=== PATIENT | male | born 1950 | race Caucasian/White ===

== ENCOUNTER 2017-11-25 08:55 | Emergency (ER) | payer MEDICARE ==
[~2017-11-25] VITALS: Ht 180.3 cm; Wt 72.6 kg
--- OUTSIDE RECORDS SUMMARY | ~2017-11-25 | XMS | Clinical Summary ---
Demographics + + + | Address | [address] | | | [place] [address] | + + + | Home Phone | | + + + | Preferred Language | Unknown | + + + | Marital Status | | + + + | Roman Catholic Affiliation | 1077 | + + + | Race | Unknown | + + + | Ethnic Group | Unknown | + + + Author + + + | Author | [facility] | | | and [place] | + + + | Organization | [facility] | | | and [place] | [...] Providers + +------+ + | Care Manager Er Name | Role | Phone | + [...]
--- OUTSIDE RECORDS SUMMARY | ~2017-11-25 | XMS | Encounter Summary ---
Demographics + + + | Address | [address] | | | [place] [address] | + + + | Home Phone | | + + + | Preferred Language | Unknown | + + + | Marital Status | | + + + | Judaism Affiliation | 1013 | + + + | Race | Unknown | + + + | Ethnic Group | Unknown | + + + Author + + + | Author | Madison [employer] | + + + | Organization | [facility] | + + + | Address | Unknown | + + + | Phone | Unavailable | + + + Support + + +---------+ + | Name | Relationship | Address | Phone | + + +---------+ + | Kaylah Mckeon | ECON | Unknown | | + + +---------+ + Care Team Providers + +------+ + | Care French Instructor Name | Role | Phone | + +------+ + | Flex Cassidy MD | PCP | | + +------+ + Encounter Details +--------+ + + + + | Date | Type | Department | Care Team | Description | +--------+ + + + + | 09/16/ | Documentati | [facility] | See, Medical | | | 2018 | on Only | Information | Record | | | | | Management [address] | | | | | | [address] | | | | | | [place] [address] | | | | | | [phone] | | | +--------+ + + + [...] | | | | | [place] [address] | | | | | | [phone] | | | | | | | | +--------+---------+ + + + | 01/27/ | Office | Cardiology | Elinor Cantu | | | 2018 | Visit | | [address] | | | | | | [address] | | | | | | [facility] [place] [address] | | | | | | [phone] | | | | | | | | +--------+---------+ + + + as of this encounter Visit Diagnoses Not on filein this encounter"
--- OUTSIDE RECORDS SUMMARY | ~2017-11-25 | XMS | Encounter Summary ---
Demographics + + + | Address | [address] | | | [place] [address] | + + + | Home Phone | | + + + | Preferred Language | Unknown | + + + | Marital Status | | + + + | Adventism Affiliation | 1013 | + + + | Race | Unknown | + + + | Ethnic Group | Unknown | + + + Author + + + | Author | Madison [employer] | + + + | Organization | [facility] [employer] [facility] | + + + | Address | Unknown | + + + | Phone | Unavailable | + + + Support + + +---------+ + | Name | Relationship | Address | Phone | + + +---------+ + | Kaylah Mckeon | ECON | Unknown | | + + +---------+ + Care Team Providers + +------+ + | Care Mate Ship Name | Role | Phone | + [...] + | 08/27/ | Documentati | [facility] [place] | Areli Sood, | Other (Dr Cassidy) | | 2018 | on Only | Cardiology [place] [place] | | | | | [address] | | | | | | [facility] [place] | | | | | | [address] | | | | | | [phone] | | | +--------+ + + + [...] | | | | | [place] [address] | | | | | | [phone] | | | | | | | | +--------+---------+ + + + | 01/27/ | Office | Cardiology | Elinor Cantu | | | 2017 | Visit | | [address] | | | | | | [address] | | | | | | [place] [address] | | | | | | [phone] | | | | | | | | +--------+---------+ + + + as of this encounter Visit Diagnoses Not on filein this encounter"
[~2017-11-25 08:55] MED LIST: ASPIRIN EC325 MG PO; CIALIS20 MG PO; HYDROCHLOROTHIA25 MG PO; LISINOPRIL20 MG PO; MULTIVITAMINS1 EAC7 PO; SIMVASTATIN20 MG
[2017-11-25] MEDS ORDERED: ATORVASTATIN CA40 MG PO (09:07)
[2017-11-25] MEDS ORDERED: ZANAFLEX4 MG PO (09:07)
--- OUTSIDE RECORDS SUMMARY | 2017-11-25 09:32 | XMS | Clinical Summary ---
Demographics + + + | Address | [address] | | | [place] [address] | + + + | Home Phone | | + + + | Preferred Language | Unknown | + + + | Marital Status | | + + + | Congregation Affiliation | 1013 | + + + | Race | Unknown | + + + | Ethnic Group | Unknown | + + + Author + + + | Author | [facility] [employer] | + + + | Organization | [facility] | + + + | Address | Unknown | + + + | Phone | Unavailable | + + + Support + + +---------+ + | Name | Relationship | Address | Phone | + + +---------+ + | Kaylah Pemberton | ECON | Unknown | | + + +---------+ + Care Team Providers + +------+ + | Care Software Reverse Engineer Name | Role | Phone | + +------+ + | Flex Cassidy MD | PP | | + +------+ + Allergies No Known Allergies Current Medications + + +--------+---------+------+------+-------+ | Prescription | Sig. | Disp. | Refills | Star | End | Statu | | | | | | t | Date | s | | | | | | Date | | | + + +--------+---------+------+------+-------+ | magnesium oxide | Take 250 mg by mouth | | | | | Activ | | (MAG-OX) 400 MG | nightly. | | | | | e | | tablet | | | | | | | + + +--------+---------+------+------+-------+ | Cholecalciferol | Take 1 capsule by | | | | | Activ | | (VITAMIN D3) 1000 | mouth nightly. | | | | | e | | UNITS CAPS | | | | | | | + + +--------+---------+------+------+-------+ | | Take 5-325 mg by | | | | | Activ | | HYDROCODONE-ACETAMIN | mouth as needed. | | | | | e | | OPHEN PO | | | | | | | + + +--------+---------+------+------+-------+ | aspirin 325 MG EC | Take 325 mg by mouth | | | | | Activ | | tablet | daily. | | | | | e | + + +--------+---------+------+------+-------+ | metoprolol | Take 25 mg by mouth | | | | | Activ | | (LOPRESSOR) 25 MG | 2 (two) times daily. | | | | | e | | tablet | | | | | | | + + +--------+---------+------+------+-------+ | Coenzyme Q10 | Take 200 mg by mouth | | | | | Activ | | (COQ10) 200 MG CAPS | daily. | | | | | e | + + +--------+---------+------+------+-------+ | atorvastatin | Take 40 mg by mouth | | | | | Activ | | (LIPITOR) 40 MG | nightly. | | | | | e | | tabletIndications: | | | | | | | | Mixed Dyslipidemia | | | | | | | + + +--------+---------+------+------+-------+ | azithromycin | Take 250 mg by mouth | | | | | Activ | | (ZITHROMAX) 250 MG | daily as needed. | | | | | e | | tablet | TAKE TWO TABLETS BY | | | | | | | | MOUTH NOW then ONE | | | | | | | | TABLET DAILY DAY 2-5 | | | | | | + + +--------+---------+------+------+-------+ | | Take 1 tablet by | 180 | 3 | 01/1 | | Activ | | hydrochlorothiazide | mouth 2 (two) times | tablet | | 8/20 | | e | | (HYDRODIURIL) 25 MG | daily. | | | 18 | | | | tablet | | | | | | | + + +--------+---------+------+------+-------+ Active Problems + + + | Problem | Noted Date | + + + | S/P CABG x 5 | 09/28/2014 | + + + | CAD (coronary artery disease) | 09/28/2014 | + + + | Other and unspecified angina pectoris | 08/11/2014 | + + + | Abnormal stress test | 08/11/2014 | + + + | HTN (hypertension) | 08/11/2014 | + + + | Hyperlipidemia | 08/11/2014 | + + + | Obesity | 08/11/2014 | + + + Encounters +--------+ + + + + | Date | Type | Specialty | Care Team | Description | +--------+ + + + + | 09/23/ | Documentati | | Renae Manzo, | Other ([place] | | 2018 | on Only | | [place] | Internal Medicine | | | | | | PCP Notes 09/18/17) | +--------+ + + + + | 09/16/ | Documentati | | See, Medical | | | 2018 | on Only | | Record | | +--------+ + + + + | 08/27/ | Documentati | | Areli Sood, | Other (Dr Cassidy) | | 2018 | on Only | | MA | | +--------+ + + + + from Last 3 Months Family History + + +--------+ + | Medical History | Relation | Name | Comments | + + +--------+ + | Heart disease | Father | Laureano | | + + +--------+ + | Heart disease | Mother | Song | | + + +--------+ + | Osteoarthritis | Mother | Song | | + + +--------+ + | Heart failure | Paternal | | | | | Grandfath | | | | | er | | | + + +--------+ + | Heart failure | Paternal | | | | | Grandmoth | | | | | er | | | + + +--------+ + + +--------+ + + | Relation | Name | Status | Comments | + +--------+ + + | Father | Laureano | | Aortic Aneurysm | | | | (Age | | | | | 72) | | + +--------+ + + | Mother | Song | | CAD, Sepsis | | | | (Age | | | | | 82) | | + +--------+ + + | Paternal Grandfather | | | | + +--------+ + + | Paternal Grandmother | | | | + +--------+ + + Social History + + + +--------+ + | Tobacco Use | Types | Packs/Day | Years | Date | | | | | Used | | + + + +--------+ + | Former Smoker | Cigarettes | 0.5 | 5 | 04/08/1967 - | | | | | | 04/08/1994 | + + + +--------+ + + +------+---+---+ | Smokeless Tobacco: | Chew | | | | Former User | | | | + +------+---+---+ + + | Comments: quit about 20yrs | + + + + +---------+ + | Alcohol Use | Drinks/We | oz/Week | Comments | | | ek | | | + + +---------+ + | Yes | 1 | 0.6 | nightly | | | Glasses | | | | | of wine | | | + + +---------+ + + + + | Sex Assigned at | Date Recorded | | | | + + + | Not on file | | + + + Last Filed Vital Signs + + + + | Vital Sign | Reading | Time Taken | + + + + | Blood Pressure | 130/66 | 06/27/2017 10:00 AM PDT | + + + + | Pulse | 61 | 06/27/2017 10:00 AM PDT | + + + + | Temperature | 36.7 C (98.1 F) | 06/14/2015 8:03 AM PST | + + + + | Respiratory Rate | 18 | 06/27/2017 10:00 AM PDT | + + + + | Oxygen Saturation | 90% | 06/27/2017 10:00 AM PDT | + + + + | Inhaled Oxygen | - | - | | Concentration | | | + + + + | Weight | 122.5 kg (270 lb) | 06/27/2017 10:00 AM PDT | + + + + | Height | 179.1 cm (5' 10.5") | 06/27/2017 10:00 AM PDT | + + + + | Body Mass Index | 38.19 | 06/27/2017 10:00 AM PDT | + + + + Plan of Treatment +--------+---------+ + + + | Date | Type | Specialty | Care Team | Description | +--------+---------+ + + + | 12/04/ | Office | | William Mendez MD | | | 2018 | Visit | | [address] | | | | | | [place] [address] | | | | | | [phone] | | | | | | | | +--------+---------+ + + + | 01/27/ | Office | | Elinor Cantu | | | 2017 | Visit | | [address] | | | | | | [address] | | | | | | [place] [address] | | | | | | [phone] | | | | | | | | +--------+---------+ + + + + + + + + | Health Maintenance | Due Date | Last Done | Comments | + + + + + | Vaccine: | | | | | Dtap/Tdap/Td (1 - | 9 | | | | Tdap) | | | | + + + + + | Colon Cancer | | | | | Screening | 0 | | | | (Colonoscopy) | | | | + + + + + | Vaccine: | | | | | Pneumococcal 65+ | 5 | | | | Low/Medium Risk (1 | | | | | of 2 - PCV13) | | | | + + + + + | Vaccine: Influenza | | | | | (#1) | 8 | | | + + + + + Implants + +------+-------+ +--------+--------+--------+ | Implanted | Type | Area | Manufacture | Device | Expira | Model | | | | | r | | tion | / | | | | | | Identi | Date | Serial | | | | | | fier | | / Lot | + +------+-------+ +--------+--------+--------+ | Pacing Wire Dual | | N/A: | XU MED | | 12/07/ | 030-00 | | 030-005 - | | Heart | | | 2019 | 5 / | | [id number]: Qty: 1 on | | | | | | /170 | | 08/19/2014 by Will Small, | | | | | | | | MD | | | | | | | + +------+-------+ +--------+--------+--------+ | Plate Sternal Acutie - | | N/A: | JOSEGRADYC NULL | | | [id number] | [id number]: Qty: 2 on | | Heart | VENDOR | | | 4 / / | | 08/19/2014 by Will Small, | | | | | | | | MD | | | | | | | + +------+-------+ +--------+--------+--------+ Results Not on filefrom Last 3 Months Insurance + +--------+ +------+-------+ + | Payer | Benefi | Subscriber | Type | Phone | Address | | | t Plan | ID | | | | | | / | | | | | | | Group | | | | | + +--------+ +------+-------+ + | MEDICARE | MEDICA | [id number] | | | [address] | | | RE | | | | [place] [address] | | | IP-OP | | | | | + +--------+ +------+-------+ + | UNITED HEALTHCARE | UNITED | [id number] | | | | | | | | | | | | | HEALTH | | | | | | | CARE - | | | | | | | AARP | | | | | + +--------+ +------+-------+ + + +--------+ +--------+ + + | Guarantor Name | Accoun | Relation to | Date | Phone | Billing Address | | | t Type | Patient | of | | | | | | | | | | + +--------+ +--------+ + + | GILL PEMBERTON | Person | Self | [birth year] | Home: | [address] | | | [place] | | 1950 | [phone] [place] | | | jose | | | [phone] | [address] | + +--------+ +--------+ + +
[2017-11-25] MEDS ORDERED: METHYLPREDNISOLO4 M1 PO (09:57)
[2017-11-25] MEDS ORDERED: ROBAXIN-750750 MG PO (09:57)
[2017-11-25] MEDS ORDERED: NORCO 7.5-3251 EACH PO (09:57)
--- OUTSIDE RECORDS SUMMARY | 2017-11-25 10:18 | XMS | Encounter Summary ---
Demographics + + + | Address | [address] | | | [place] [address] | + + + | Home Phone | | + + + | Preferred Language | Unknown | + + + | Marital Status | | + + + | Baptist Affiliation | 1013 | + + + | Race | Unknown | + + + | Ethnic Group | Unknown | + + + Author + + + | Author | Madison [employer] | + + + | Organization | [facility] | + + + | Address | Unknown | + + + | Phone | Unavailable | + + + Support + + +---------+ + | Name | Relationship | Address | Phone | + + +---------+ + | Kaylah Mckeon | ECON | Unknown | | + + +---------+ + Care Team Providers + +------+ + | Care Room Manager Name | Role | Phone | + +------+ + | Flex Cassidy MD | PCP | | + +------+ + Reason for Visit +--------+ + | Reason | Comments | +--------+ + | Other | Dr Cassidy | +--------+ + Encounter Details +--------+ + + + + | Date | Type | Department | Care Team | Description | +--------+ + + + + | 08/27/ | Documentati | [facility] [place] | Areli Sood, | Other (Dr Cassidy) | | 2018 | on Only | Cardiology [place] Black [place] | | | | | [address] | | | | | | [facility] [place] | | | | | | [address] | | | | | | [phone] | | | +--------+ + + + + Social History + + + [...] on file | | + + + as of this encounter Plan of Treatment +--------+---------+ + + + | Date | Type | Specialty | Care Team | Description | +--------+---------+ + + + | 12/04/ | Office | Pulmonology | William Mendez MD | | | 2017 | Visit | | [address] | | | | | | [place] [address] | | | | | | [phone] | | | | | | | | +--------+---------+ + + + | 01/27/ | Office | Cardiology | Elinor Cantu | | | 2017 | Visit | | [address] | | | | | | [address] | | | | | | [place] [address] | | | | | | [phone] | | | | | | | | +--------+---------+ + + + as of this encounter Visit Diagnoses Not on filein this encounter"
--- OUTSIDE RECORDS SUMMARY | 2017-11-25 10:18 | XMS | Encounter Summary ---
Demographics + + + | Address | [address] | | | [place] [address] | + + + | Home Phone | | + + + | Preferred Language | Unknown | + + + | Marital Status | | + + + | Buddhist Affiliation | 1013 | + + + | Race | Unknown | + + + | Ethnic Group | Unknown | + + + Author + + + | Author | Madison [employer] | + + + | Organization | [facility] | + + + | Address | Unknown | + + + | Phone | Unavailable | + + + Support + + +---------+ + | Name | Relationship | Address | Phone | + + +---------+ + | Kaylah Mckeon | ECON | Unknown | | + + +---------+ + Care Team Providers + +------+ + | Care Quality Control Checker Name | Role | Phone | + +------+ + | Flex Cassidy MD | PCP | | + +------+ + Reason for Visit +--------+ + | Reason | Comments | +--------+ + | Other | [facility] PCP Notes 09/18/17 | +--------+ + Encounter Details +--------+ + + + + | Date | Type | Department | Care Team | Description | +--------+ + + + + | 09/23/ | Documentati | [facility] [place] | Renae Manzo, | Other ([facility] | | 2018 | on Only | Cardiology [facility] | MA | Internal Medicine | | | | [address] | | PCP Notes 09/18/17) | | | | Way [address] | | | | | | [place] [address] | | | | | | [phone] | | | +--------+ + + + [...] | | | | | | [place] [address] | | | | | | [phone] | | | | | | | | +--------+---------+ + + + | 01/27/ | Office | Cardiology | Elinor Cantu | | | 2017 | Visit | | [address] | | | | | | [address] | | | | | | [place] [address] | | | | | | [phone] | | | | | | | | +--------+---------+ + + + as of this encounter Visit Diagnoses Not on filein this encounter"
--- OUTSIDE RECORDS SUMMARY | 2017-11-25 10:18 | XMS | Clinical Summary ---
Demographics + + + | Address | [address] | | | [place] [address] | + + + | Home Phone | | + + + | Preferred Language | Unknown | + + + | Marital Status | | + + + | Shinto Affiliation | 1077 | + + + | Race | Unknown | + + + | Ethnic Group | Unknown | + + + Author + + + | Author | [facility] | | | and [place] | + + + | Organization | [facility] | | | and [facility] | + + + | Address | Unknown | + + + | Phone | Unavailable | + + + Support + + +---------+ + | Name | Relationship | Address | Phone | + + +---------+ + | JEANETH MCKEON | ECON | Unknown | | | D | | | | + + +---------+ + Care Team Providers + +------+ + | Care Church Administrator Name | Role | Phone | + +------+ + PP | Unavailable | + +------+ + Allergies Not on File Current Medications Not on file Active Problems Not on file Social History + +-------+ +--------+------+ | Tobacco Use | Types | Packs/Day | Years | Date | | | | | Used | | + +-------+ +--------+------+ | Never Assessed | | | | | + +-------+ +--------+------+ + + + | Sex Assigned at | Date Recorded | | | | + + + | Not on file | | + + + Plan of Treatment + + + + + | Health [...] | | + + + + + Results Not on filefrom Last 3 Months"
--- OUTSIDE RECORDS SUMMARY | 2017-11-25 10:18 | XMS | Encounter Summary ---
Demographics + + + | Address | [address] | | | [place] [address] | + + + | Home Phone | | + + + | Preferred Language | Unknown | + + + | Marital Status | | + + + | Jainism Affiliation | 1013 | + + + | Race | Unknown | + + + | Ethnic Group | Unknown | + + + Author + + + | Author | Madison babbel | + + + | Organization | [facility] | + + + | Address | Unknown | + + + | Phone | Unavailable | + + + Support + + +---------+ + | Name | Relationship | Address | Phone | + + +---------+ + | Kaylah Mckeon | ECON | Unknown | | + + +---------+ + Care Team Providers + +------+ + | Care Education Nurse Name | Role | Phone | + +------+ + | Flex Cassidy MD | PCP | | + +------+ + Encounter Details +--------+ + + + + | Date | Type | Department | Care Team | Description | +--------+ + + + + | 09/16/ | Documentati | [facility] | See, Medical | | | 2018 | on Only | Information | Record | | | | | Management [address] | | | | | | [address] | | | | | | [place] [address] | | | | | | [phone] | | | +--------+ + + + [...] | 2018 | Visit | | [address] | | | | | | [place] [address] | | | | | | [phone] | | | | | | | | +--------+---------+ + + + | 01/27/ | Office | Cardiology | Elinor Cantu | | | 2018 | Visit | | [address] | | | | | | [address] | | | | | | [facility] [place] [place] [address] | | | | | | [phone] | | | | | | | | +--------+---------+ + + + as of this encounter Visit Diagnoses Not on filein this encounter"
--- OUTSIDE RECORDS SUMMARY | 2017-11-25 10:18 | XMS | Clinical Summary ---
Demographics + + + | Address | [address] | | | [place] [address] | + + + | Home Phone | | + + + | Preferred Language | Unknown | + + + | Marital Status | | + + + | Jain Affiliation | 1013 | + + + | Race | Unknown | + + + | Ethnic Group | Unknown | + + + Author + + + | Author | Madison [employer] | + + + | Organization | [facility] | + + + | Address | Unknown | + + + | Phone | Unavailable | + + + Support + + +---------+ + | Name | Relationship | Address | Phone | + + +---------+ + | Kaylah Pemberton | ECON | Unknown | | + + +---------+ + Care Team Providers + +------+ + | Care E Business Manager Name | Role | Phone | [...] Documentati | | Renae Manzo, | Other ([place] | | 2018 | on Only | [...] [address] | | | | | | [place] [address] | | | | | | [phone] | | | | | | | | +--------+---------+ + + + | 01/27/ | Office | | Elinor Cantu | | | 2017 | Visit | | [address] | | | | | | [address] | | | | | | [place] [address] | | | | | | [phone] | | | | | | | [...] | 2019 | 5 / | | [id number]: Qty: 1 on | | | | | | /170 | | 08/19/2014 by Will Small, | | | | | | | | MD | | | | | | | + +------+-------+ +--------+--------+--------+ | Plate Sternal Acutie - | | N/A: | JOSEGRADYC NULL | | | [id number] | | [id number]: Qty: 2 on | | Heart | [...] +------+-------+ + | MEDICARE | MEDICA | [id number] | | | [address] | | | RE | | | | [place] [address] | | | IP-OP | | | | | + +--------+ +------+-------+ + | UNITED HEALTHCARE | UNITED | [id number] | | | | | | | [...] | Self | [birth year] | Home: | [address] | | | al/[place] | | 1950 | [phone] | [place] | | | jose | | | [phone] | [address] | + +--------+ +--------+ + +
--- OUTSIDE RECORDS SUMMARY | 2017-11-25 10:19 | XMS | Encounter Summary ---
Demographics + + + | Address | [address] | | | [place] [address] | + + + | Home Phone | | + + + | Preferred Language | Unknown | + + + | Marital Status | | + + + | Anglican Affiliation | 1013 | + + + | Race | Unknown | + + + | Ethnic Group | Unknown | + + + Author + + + | Author | Madison [employer] | + + + | Organization | [facility] | + + + | Address | Unknown | + + + | Phone | Unavailable | + + + Support + + +---------+ + | Name | Relationship | Address | Phone | + + +---------+ + | Kaylah Mckeon | ECON | Unknown | | + + +---------+ + Care Team Providers + +------+ + | Care Vocational Counselor Name | Role | Phone | + [...] + | 09/23/ | Documentati | [facility] [place] | Renae Manzo, | Other ([facility] | | 2018 | on Only | Cardiology [facility] | MA | Internal Medicine | | | | [address] | | PCP Notes 09/18/17) | | | | Way [address] | | | | | | [place] [address] | | | | | | [phone] | | | +--------+ + + + [...] | | | | | | [place] [address] | | | | | | [phone] | | | | | | | | +--------+---------+ + + + | 01/27/ | Office | Cardiology | Elinor Cantu | | | 2017 | Visit | | [address] | | | | | | [address] | | | | | | [place] [address] | | | | | | [phone] | | | | | | | | +--------+---------+ + + + as of this encounter Visit Diagnoses Not on filein this encounter"
== END 2017-11-25 10:47 | disposition home or self-care (01) ==
LOC: ED 08:55
DX: M54.5 Low back pain (principal); I11.0 Hypertensive heart disease with heart failure; I50.9 Heart failure, unspecified; Z87.891 Personal history of nicotine dependence; Z79.899 Other long term (current) drug therapy
CPT/HCPCS: 81001; 96372; 99283; J1885

== ENCOUNTER 2019-10-12 15:34 | Emergency (ER) | payer MEDICARE ==
[~2019-10-12] VITALS: Ht 180.3 cm; Wt 97.5 kg
--- OUTSIDE RECORDS SUMMARY | ~2019-10-12 | XMS | Encounter Summary ---
Demographics + + + | Address | [address] | | | [place] [address] | + + + | Home Phone | | + + + | Preferred Language | Unknown | + + + | Marital Status | | + + + | Buddhism Affiliation | 1013 | + + + | Race | Unknown | + + + | Ethnic Group | Unknown | + + + Author + + + | Author | [facility] | | | and [place] | + + + | Organization | [facility] | | | and [place] | + + + | Address | Unknown | + + + | Phone | Unavailable | + + + Support + + +---------+ + | Name | Relationship | Address | Phone | + + +---------+ + | Kaylah Mckeon | ECON | Unknown | | + + +---------+ + Care Team Providers + +------+ + | Care Manager Document Name | Role | Phone | + +------+ + | Henry Arteaga MD | PCP | | + +------+ + Encounter Details +--------+ + + + + | Date | Type | Department | Care Team | Description | +--------+ + + + + | 04/28/ | Orders Only | [facility] | Conversion | | | 2019 | | CONVERSION DEP [address] | Transaction, | | | | | [address] | Provider Unknown | | | | | [place], [place] | [phone] | | | | | [address] | | | | | | [phone] | | | +--------+ + + + + Social History + +-------+ +--------+------+ | Tobacco [...] on file | | + + + documented as of this encounter Plan of Treatment Not on filedocumented as of this encounter Visit Diagnoses Not on filedocumented in this encounter"
--- OUTSIDE RECORDS SUMMARY | ~2019-10-12 | XMS | Encounter Summary ---
Demographics + + + | Address | [address] | | | [place] [address] | + + + | Home Phone | | + + + | Preferred Language | Unknown | + + + | Marital Status | | + + + | Jain Affiliation | 1013 | + + + | Race | Unknown | + + + | Ethnic Group | Unknown | + + + Author + + + | Author | [facility] | | | and [place] | + + + | Organization | [facility] | | | and [...] Team Providers + +------+ + | Care Campaign Specialist Name | Role | Phone | + +------+ + PCP | Unavailable | + +------+ + Encounter Details +--------+ + + + + | Date | Type | Department | Care Team | Description | +--------+ + + + + | 08/17/ | Hospital | [facility] | Conversion | CAD (coronary artery | | 2015 | Encounter | [facility] | Transaction, | disease) | | | | ULTRASOUND [address] | Provider Unknown | | | | | [address] | [phone] | | | | | [place] | | | | | | [address] | | | | | | [phone] | | | +--------+ + + + [...] + + documented as of this encounter Medications at Time of Discharge + + + +---------+ + + | Medication | Sig | Dispensed | Refills | Start | End Date | | | | | | Date | | + + + +---------+ + + | cholecalciferol | Take 1 capsule by | | 0 | 08/12/19 | | | (VITAMIN D-3) 1,000 | mouth nightly. | | | 15 | | | units capsule | | | | | | + + + +---------+ + + | magnesium oxide | Take 250 mg by mouth | | 0 | 08/12/19 | | | 250 MG TABS | nightly. | | | 15 | | + + + +---------+ + + documented as of this encounter Plan of Treatment Not on filedocumented as of this encounter Procedures + +--------+ + + + | Procedure Name | Priori | Date/Time | Associated Diagnosis | Comments | | | ty | | | | + +--------+ + + + | VAS CAROTID DUPLEX | Routin | 08/17/2014 | | Results for this | | BILATERAL | e | 11:50 AM | | procedure are in the | | | | PDT | | results section. | + +--------+ + + + documented in this encounter Results VAS Carotid Duplex Bilateral (08/17/2014 11:50 AM PDT) + + | Specimen | + + | | + + + + + | Impressions | Performed At | + + + | 1. Grade 3 stenosis of the proximal RIGHT internal carotid artery. | | | 2. Flow-limiting stenosis in the origin of the RIGHT external | | | carotid artery. 3. Nonvisualization of flow in the RIGHT vertebral | | | artery, suggesting proximal occlusion. 4. No stenosis visualized in | | | the LEFT carotid arteries. 5. LEFT vertebral blood flow is normal. | | | Grades: 1 Stenosis =01-30% PSV <125 cm/sec | | | EDV (cm/s)<40 cm/sec (mild plaque) 2 Stenosis =31-50% | | | PSV <125 cm/sec EDV (cm/s)<40 cm/sec (moderate plaque) 3 | | | Stenosis =50-69% PSV >125 cm/sec EDV (cm/s)>40 cm/sec | | | 4 Stenosis =70-95% PSV >230 cm/sec EDV (cm/s)>100 | | | cm/sec 5 Stenosis =90-95% PSV <125 cm/sec EDV | | | (cm/s)<40 cm/sec 6 Stenosis Occluded Electronically | | | signed by Magdy Fan MD on 08/17/2014 1:56 PM | | + + + + + + | Narrative | Performed At | + + + | [facility] US CAROTID DOPPLER, BILATERAL 08/17/2014 11:50 AM | | | History: 64 years. Male. Preoperative evaluation for cardiac | | | surgery. TECHNIQUE: A pulse Doppler high-frequency duplex color | | | flow transducer was utilized. All velocity measurements are given in | | | m/sec. Pack scale images, spectral wave forms, velocity measurements | | | and color flow maps were analyzed. COMPARISON: None. RIGHT | | | COMMON CAROTID BIFURCATION: The RIGHT common carotid bifurcation is | | | poorly visualized due to echogenic plaque. Doppler velocities are | | | abnormally high throughout the proximal RIGHT internal carotid artery | | | with velocities indicating a grade 3 stenosis, 50-70% diameter | | | stenosis, flow-limiting. Elevated velocity in the RIGHT external | | | carotid artery also indicate significant stenosis. The RIGHT | | | vertebral blood flow is not visualized. Right Peak Systolic | | | Velocities (cm/sec) CCA-PROX: 81 CCA-DIST 64 | | | ICA-PROX 236/44 ICA-MID 43 ICA-DIST | | | 78 ECA-PROX 304 Vertebral not visualized. LEFT | | | COMMON CAROTID BIFURCATION: Mild echogenic plaque is visualized in | | | the LEFT common carotid bifurcation, without flow-limiting stenosis. | | | The Doppler velocities are normal throughout left carotid | | | bifurcation and the left vertebral blood flow is antegrade. Left | | | Peak Systolic Velocities (cm/sec) CCA-PROX not | | | measured. CCA-DIST 60 ICA-PROX 69 ICA-MID | | | 74 ICA-DIST 81 ECA-PROX 110 Vertebral | | | 43 | | + + + + + | Procedure Note | + + | Eric, Rad Conversion - 11/21/2018 8:32 AM PDT [facility] CAROTID DOPPL[facility], | | BILATERAL08/17/2014 11:50 AM History: 64 years. Male. Preoperative evaluation for | | cardiac surgery. TECHNIQUE: A pulse Doppler high-frequency duplex color flow transducer | | was utilized. All velocity measurements are given in m/sec. Pack scale images, spectral | | wave forms, velocity measurements and color flow maps were analyzed. COMPARISON: None. | | RIGHT COMMON CAROTID BIFURCATION:The RIGHT common carotid bifurcation is poorly | | visualized due to echogenic plaque. Doppler velocities are abnormally high throughout | | the proximal RIGHT internal carotid artery with velocities indicating a grade 3 | | stenosis, 50-70% diameter stenosis, flow-limiting. Elevated velocity in the RIGHT | | external carotid artery also indicate significant stenosis. The RIGHT vertebral blood | | flow is not visualized. Right Peak Systolic Velocities (cm/sec)CCA-PROX: 81CCA-DIST | | 64ICA-PROX 236/44ICA-MID 43ICA-DIST 78ECA-PROX | | 304Vertebral not visualized. LEFT COMMON CAROTID BIFURCATION:Mild echogenic plaque is | | visualized in the LEFT common carotid bifurcation, without flow-limiting stenosis. The | | Doppler velocities are normal throughout left carotid bifurcation and the left vertebral | | blood flow is antegrade. Left Peak Systolic Velocities (cm/sec)CCA-PROX not | | measured.CCA-DIST 60ICA-PROX 69ICA-MID 74ICA-DIST | | 81ECA-PROX 110Vertebral 43 IMPRESSION: 1. Grade 3 stenosis of the | | proximal RIGHT internal carotid artery.2. Flow-limiting stenosis in the origin of the | | RIGHT external carotid artery.3. Nonvisualization of flow in the RIGHT vertebral | | artery, suggesting proximal occlusion.4. No stenosis visualized in the LEFT carotid | | arteries.5. LEFT vertebral blood flow is normal. Grades:1 Stenosis =01-30% PSV | | <125 cm/sec EDV (cm/s)<40 cm/sec (mild plaque)2 Stenosis =31-50% PSV <125 | | cm/sec EDV (cm/s)<40 cm/sec (moderate plaque)3 Stenosis =50-69% PSV >125 | | cm/sec EDV (cm/s)>40 cm/sec4 Stenosis =70-95% PSV >230 cm/sec EDV | | (cm/s)>100 cm/sec5 Stenosis =90-95% PSV <125 cm/sec EDV (cm/s)<40 cm/sec6 | | Stenosis Occluded | | PM | |CCA-PROX not measured. | |CCA-DIST 60 | |ICA-PROX 69 | |ICA-MID 74 | |ICA-DIST 81 | |ECA-PROX 110 | |Vertebral 43 | | | | | |IMPRESSION: | |1. Grade 3 stenosis of the proximal RIGHT internal carotid artery. | |2. Flow-limiting stenosis in the origin of the RIGHT external carotid artery. | |3. Nonvisualization of flow in the RIGHT vertebral artery, suggesting proximal occlusion. | |4. No stenosis visualized in the LEFT carotid arteries. | |5. LEFT vertebral blood flow is normal. | | | | | |Grades: | |1 Stenosis =01-30% PSV <125 cm/sec EDV (cm/s)<40 cm/sec (mild plaque) | |2 Stenosis =31-50% PSV <125 cm/sec EDV (cm/s)<40 cm/sec (moderate plaque) | |3 Stenosis =50-69% PSV >125 cm/sec EDV (cm/s)>40 cm/sec | |4 Stenosis =70-95% PSV >230 cm/sec EDV (cm/s)>100 cm/sec | |5 Stenosis =90-95% PSV <125 cm/sec EDV (cm/s)<40 cm/sec | |6 Stenosis Occluded | | | | | + + documented in this encounter Visit Diagnoses + + | Diagnosis | + + | CAD (coronary artery disease) Coronary atherosclerosis of unspecified type of vessel, | | [place] or graft | + + documented in this encounter"
--- OUTSIDE RECORDS SUMMARY | ~2019-10-12 | XMS | Encounter Summary ---
Demographics + + + | Address | [address] | | | [place] [address] | + + + | Home Phone | | + + + | Preferred Language | Unknown | + + + | Marital Status | | + + + | Islam Affiliation | 1013 | + + + | Race | Unknown | + + + | Ethnic Group | Unknown | + + + Author + + + | Author | [facility] | | | and [place] | + + + | Organization | [facility] | | | and [...] Team Providers + +------+ + | Care Clinical Professor Name | Role | Phone | + +------+ + PCP | Unavailable | + +------+ + Encounter Details +--------+ + + + + | Date | Type | Department | Care Team | Description | +--------+ + + + + | 09/28/ | Hospital | [facility] | Conversion | COPD (chronic | | 2014 | Encounter | PULMONARY FUNCTION | Transaction, | obstructive | | | | LAB [address] | Provider Unknown | pulmonary disease) | | | | [place], [place] | [phone] | (HCC) | | | | [address] | | | | | | [phone] | | | +--------+ + + + [...] + + documented as of this encounter Procedure Malcom Dixon MD - 09/30/2014 9:57 PM PDT Procedures by Malcom Kulkarni MD at [id number] Author: Malcom Kulkarni MD Service: Pulmonology Author Type: Physician Filed: 09/30/142201 Date of Service: 09/30/142156 Status: Signed Peer Support Specialist: Malcom Kulkarni MD (Physician) Procedure Orders: 1. Complete PFT - Pre & Post Spirometry, PLETH & DLCO [[id number]] ordered by Federico velez PA-C at 09/07/[address] [place] [address] Service: Pulmonology PULMONARY FUNCTION TEST Name : Yasmany Mckeon : 1950 REASON FOR TESTING COPD FINDINGS SPIROMETRY: 1. FEV-1/FVC is 0.63. 2. FEV-1 is 2.4L/69%. 3. FVC is 3.81L/82%. 4.There is a significant bronchodilator response. LUNG VOLUMES: 1. TLC is 6.39L/91%. 2. RV/TLC is normal. 3. ERV is 39%. DIFFUSING CAPACITY: 1. Diffusing capacity is 59%. 2. DL/VA is 83%. INTERPRETATION: Moderate obstructive lung disease is present with a significant response to bronchodilators . There is no restriction present, no hyperinflation, and no air trapping. ERV is reduced likely secondary to obesity. Diffusing capacity is moderately reduced. This pattern may be seen in COPD. Malcom Kulkarni MD 09/30/2014 9:57 PM docume nted in this encounter Plan of Treatment Not on filedocumented as of this encounter Visit Diagnoses + + | Diagnosis | + + | COPD (chronic obstructive pulmonary disease) (HCC) Chronic airway obstruction, not | | elsewhere classified | + + documented in this encounter"
--- OUTSIDE RECORDS SUMMARY | ~2019-10-12 | XMS | Clinical Summary ---
Demographics + + + | Address | [address] | | | [place] [address] | + + + | Home Phone | | + + + | Preferred Language | Unknown | + + + | Marital Status | | + + + | Anabaptism Affiliation | 1013 | + + + | Race | Unknown | + + + | Ethnic Group | Unknown | + + + Author + + + | Author | [facility] | | | and [place] | + + + | Organization | [facility] | | | [...] Team Providers + +------+ + | Care Hogshead Stripper Name | Role | Phone | + +------+ + | Henry Arteaga MD | PCP | | + +------+ + Allergies No Known Allergies Medications + + + +---------+------+------+-------+ | Medication | Sig | Dispensed | Refills | Star | End | Statu | | | | | | t | Date | s | | | | | | Date | | | + + + +---------+------+------+-------+ | magnesium oxide | Take 250 mg by mouth | | 0 | 05/0 | | Activ | | 250 MG TABS | nightly. | | | 6/20 | | e | | | | | | 15 | | | + + + +---------+------+------+-------+ | cholecalciferol | Take 1 capsule by | | 0 | 05/0 | | Activ | | (VITAMIN D-3) 1,000 | mouth nightly. | | | 6/20 | | e | | units capsule | | | | 15 | | | + + + +---------+------+------+-------+ | metoprolol | Take 25 mg by mouth | | 0 | 08/1 | | Activ | | tartrate (LOPRESSOR) | 2 (two) times daily. | | | 20 | | e | | 25 mg tablet | | | | 17 | | | + + + +---------+------+------+-------+ | Coenzyme Q10 | Take 200 mg by mouth | | 0 | 08/1 | | Activ | | (COQ10) 100 MG CAPS | daily. | | | 720 | | e | | | | | | 17 | | | + + + +---------+------+------+-------+ | atorvaSTATin | Take 40 mg by mouth | | 0 | 08/1 | | Activ | | (LIPITOR) 40 mg | nightly. | | | 10/25 | | e | | tablet | | | | 17 | | | + + + +---------+------+------+-------+ | azithromycin | Take 250 mg by mouth | | 0 | 04/08 | | Activ | | (ZITHROMAX) 250 mg | daily as needed. | | | 11/25 | | e | | tablet | TAKE TWO TABLETS BY | | | 18 | | | | | MOUTH NOW then ONE | | | | | | | | TABLET DAILY DAY 2-5 | | | | | | + + + +---------+------+------+-------+ | | Take 1 tablet by | 180 | 3 | / | | Activ | | hydroCHLOROthiazide | mouth 2 (two) times | tablet | | 11/25 | | e | | 25 mg tablet | daily. | | | 18 | | | + + + +---------+------+------+-------+ | gabapentin | Take 600 mg by mouth | | 0 | 10/2 | | Activ | | (NEURONTIN) 600 MG | 3 (three) times | | | 0/20 | | e | | tablet | daily as needed. | | | 18 | | | + + + +---------+------+------+-------+ | gabapentin | take 1 capsule by | | 0 | 10/1 | | Activ | | (NEURONTIN) 300 mg | mouth three times a | | | 7/20 | | e | | capsule | day if needed for | | | 18 | | | | | pain | | | | | | + + + +---------+------+------+-------+ | | take 1 tablet by | | 0 | 10/1 | | Activ | | HYDROcodone-acetamin | mouth every 4 to 6 | | | 7/20 | | e | | ophen (NORCO) 5-325 | hours if needed for | | | 18 | | | | mg per tablet | pain | | | | | | + + + +---------+------+------+-------+ | meloxicam (MOBIC) | Take 7.5 mg by mouth | | 0 | 10/1 | | Activ | | 7.5 mg tablet | 2 (two) times | | | 7/20 | | e | | | daily. | | | 18 | | | + + + +---------+------+------+-------+ | methylPREDNISolone | take by mouth as | | 0 | 10/1 | | Activ | | (MEDROL DOSEPAK) 4 | directed PER PACKAGE | | | 7/20 | | e | | mg tablet | DIRECTIONS | | | 18 | | | + + + +---------+------+------+-------+ | predniSONE | take 2 tablets by | | 0 | 10/2 | | Activ | | (DELTASONE) 20 mg | mouth once daily for | | | 0/20 | | e | | tablet | 5 days then take 1 | | | 18 | | | | | tablet ... (REFER | | | | | | | | TO PRESCRIPTION | | | | | | | | NOTES). | | | | | | + + + +---------+------+------+-------+ | Resveratrol 250 MG | Take by mouth. | | 0 | 01/2 | | Activ | | CAPS | | | | 2/20 | | e | | | | | | 19 | | | + + + +---------+------+------+-------+ | methocarbamol | Take 750 mg by mouth | | 0 | 01/2 | | Activ | | (ROBAXIN) 750 mg | 4 (four) times | | | 2/20 | | e | | tablet | daily. | | | 19 | | | + + + +---------+------+------+-------+ | | by Does not apply | | 0 | 01/2 | | Activ | | Lidocaine-Prilocaine | route. | | | 2/20 | | e | | , Bulk, 2.5-2.5 % | | | | 19 | | | | CREA | | | | | | | + + + +---------+------+------+-------+ | traMADol (ULTRAM) | take 1 tablet by | 60 | 0 | 05/0 | | Activ | | 50 mg tablet | mouth every 8 hours | tablet | | 3/20 | | e | | | if needed for pain | | | 19 | | | + + + +---------+------+------+-------+ Active Problems + + + | Problem | Noted Date | + + + | Herniated lumbar intervertebral disc | 07/02/2018 | + + + | Lumbar radiculopathy | 07/02/2018 | + + + | Lumbar spondylosis | 07/02/2018 | + + + | Spinal stenosis of lumbar region without neurogenic claudication | 07/02/2018 | + + + | Epidural lipomatosis | 07/02/2018 | + + + | Lumbar foraminal stenosis | 07/02/2018 | + + + | S/P CABG [...] Obesity | 08/11/2014 | + + + Family History + + +--------+ + | [...] | | + +--------+ + + | Father | Laureano | | | + +--------+ + + | Mother | Song | | CAD, Sepsis | | | | (Age | | | | | 82) | | + +--------+ + + | Mother | Song | | | + +--------+ + + | Paternal Grandfather | | | | + +--------+ + + | Paternal Grandfather | | | | + +--------+ + + | Paternal Grandmother | | | | + +--------+ + + | Paternal Grandmother | | | | + +--------+ + + Social History + +-------+ +--------+------+ | Tobacco Use | Types | Packs/Day | Years | Date | | | | | Used | | + +-------+ +--------+------+ | Former Smoker | | 0.5 | | | + +-------+ +--------+------+ + + | Comments: quit about 20yrs | + + + + + | Sex Assigned at | Date Recorded | | | | + + + | Not on file | | + + + Last Filed Vital Signs + + + + + | Vital Sign | Reading | Time Taken | Comments | + + + + + | Blood Pressure | 156/76 | 07/02/2018 8:42 AM | | | | | PDT | | + + + + + | Pulse | 54 | 07/02/2018 8:42 AM | | | | | PDT | | + + + + + | Temperature | 36.7 C (98.1 F) | 06/14/2015 8:06 AM | | | | | PST | | + + + + + | Respiratory Rate | 16 | 07/02/2018 8:42 AM | | | | | PDT | | + + + + + | Oxygen Saturation | - | - | | + + + + + | Inhaled Oxygen | - | - | | | Concentration | | | | + + + + + | Weight | 107.5 kg (237 lb) | 07/02/2018 8:42 AM | | | | | PDT | | + + + + + | Height | 177.8 cm (5' 10") | 07/02/2018 8:42 AM | | | | | PDT | | + + + + + | Body Mass Index | 34.01 | 07/02/2018 8:42 AM | | | | | PDT | | + + + + + Plan of Treatment + + +-------+ + | Health Maintenance | Due Date | Last | Comments | | | | Done | | + + +-------+ + | Hepatitis C | | | | | Screening | 0 | | | + + +-------+ + | Vaccine: | | | | | Dtap/Tdap/Td (1 - | 9 | | | | Tdap) | | | | + + +-------+ + | Colorectal Cancer | | | | | Screening | 0 | | | | (Colonoscopy) | | | | + + +-------+ + | Vaccine: Zoster (1 | | | | | of 2) | 0 | | | + + +-------+ + | AAA Screening | | | | | | 5 | | | + + +-------+ + | Vaccine: | | | | | Pneumococcal 65+ (1 | 5 | | | | of 1 - PPSV23) | | | | + + +-------+ + | Adult Annual | | | | | Wellness Visit | 9 | | | + + +-------+ + | Vaccine: Influenza | | | | | (#1) | 0 | | | + + +-------+ + Implants + +------+-------+ +--------+--------+--------+ | Implanted | Type | Area | Manufacture | Device | Shelf | Model | | | | | r | | Expira | / | | | | | | Identi | tion | Serial | | | | | | fier | Date | / Lot | + +------+-------+ +--------+--------+--------+ | Pacing Wire Dual | | N/A: | XU | | 12/07/ | 030-00 | | 030-005 - | | Heart | MEDICAL | | 2019 | 5 / | | [id number]: Qty: 1 on | | | SPECIALTI - | | | /170 | | 08/19/2014 by Will Small, | | | WILS | | | | | MD | | | | | | | + +------+-------+ +--------+--------+--------+ | Plate Sternal Acutie - | | N/A: | NA UNKNOWN | | | [id number] | | [id number]: Qty: 2 on | | Heart | | | | 4 / / | | 08/19/2014 by Will Small, | | | | | | | | MD | | | | | | | + +------+-------+ +--------+--------+--------+ Results Not on filefrom Last 3 Months Insurance + +--------+ +--------+ +---------+--------+ | Payer | Benefi | Subscriber | Effect | Phone | Address | Type | | | t Plan | ID | harry | | | | | | / | | Dates | | | | | | Group | | | | | | + +--------+ +--------+ +---------+--------+ | MEDICARE | MEDICA | [id number] | | [phone] | | Medica | | | RE | | 015-Pr | 5 | | re | | | PART A | | esent | | | | | | AND B | | | | | | + +--------+ +--------+ +---------+--------+ | MEDICARE | MEDICA | [id number] | | [phone] | | Medica | | | RE | | 015-Pr | 5 | | re | | | PART A | | esent | | | | | | AND B | | | | | | + +--------+ +--------+ +---------+--------+ | AARP | AARP | [id number] | 04/08/19 | [phone] | | Indemn | | | MDCR | | 18-Pre | 0 | | ity | | | SUPPL | | sent | | | | + +--------+ +--------+ +---------+--------+ | AARP | AARP | [id number] | 04/08/19 | [phone] | | Indemn | | | MDCR | | 19-Pre | 0 | | ity | | | SUPPL | | sent | | | | + +--------+ +--------+ +---------+--------+ + +--------+ +--------+ + + | Guarantor Name | Accoun | Relation to | Date | Phone | Billing Address | | | t Type | Patient | of | | | | | | | | | | + +--------+ +--------+ + + | Yasmany Mckeon | Person | Self [birth year] | [address] | | | al/Fam | | 1950 | [phone] | [place] | | | [place]ose | | | 0 (Home) | [address] | + +--------+ +--------+ + + | Yasmany Mckeon | Person | Self | [birth year] | [address] | | | al/Fam | | 1950 | [phone] | [place] | | | [place] | | | 0 (Home) | [address] | + +--------+ +--------+ + + Advance Directives + + + + + | Type | Date Recorded | Patient | Explanation | | | | Chart Writer | | + + + + + | Power of | | | | | Rag Cutting Machine Tender | | | | + + + + + | Advance | | | | | Directive | | | | + + + + +
--- OUTSIDE RECORDS SUMMARY | ~2019-10-12 | XMS | Encounter Summary ---
Demographics + + + | Address | [address] | | | [place] [address] | + + + | Home Phone | | + + + | Preferred Language | Unknown | + + + | Marital Status | | + + + | Judaism Affiliation | 1013 | + + + | Race | Unknown | + + + | Ethnic Group | Unknown | + + + Author + + + | Author | [facility] | | | and [place] | + + + | Organization | [facility] | | | and [...] Team Providers + +------+ + | Care Him Manager Name | Role | Phone | + +------+ + PCP | Unavailable | + +------+ + Encounter Details +--------+ + + + + | Date | Type | Department | Care Team | Description | +--------+ + + + + | 12/01/ | Hospital | [facility] | Conversion | Pain | | 2015 | Encounter | CONVERSION [address] | Transaction, | | | | | [address] | Provider Unknown | | | | | [place] | [phone] | | | | | [address] | | | | | | [phone] | | | +--------+ + + + [...] | + +--------+ + + + | CT CHEST WO CONTRAST | Routin | 12/01/2014 | | Results for this | | | e | 11:55 PM | | procedure are in the | | | | PDT | | results section. | + +--------+ + + + documented in this encounter Results CT Chest wo Contrast (12/01/2014 11:55 PM PDT) + + | Specimen | + + | | + + + + + | Narrative | Performed At | + + + | This is a non-reportable procedure without a radiologist report and | | | is used for image storage only | | + + + + + | Procedure Note | + + | Francesco Reyes Luis A - 11/21/2018 8:32 AM PDT This is a non-reportable procedure | | without a radiologist report and isused for image storage only | + + documented in this encounter Visit Diagnoses + + | Diagnosis | + + | Pain Generalized pain | + + documented in this encounter"
--- OUTSIDE RECORDS SUMMARY | ~2019-10-12 | XMS | Encounter Summary ---
Demographics + + + | Address | [address] [facility] [facility] [address] | | | [place] [address] | + + + | Home Phone | | + + + | Preferred Language | Unknown | + + + | Marital Status | | + + + | Rastafarian Affiliation | 1013 | + + + | Race | Unknown | + + + | Ethnic Group | Unknown | + + + Author + + + | Author | [facility] | | | and [place] | + + + | Organization | [facility] | | | [...] Team Providers + +------+ + | Care Chairman & Ceo Name | Role | Phone | + +------+ + | Demetrius Melgar MD | PCP | | + +------+ + Encounter Details +--------+ + + + + | Date | Type | Department | Care Team | Description | +--------+ + + + + | 02/20/ | Hospital | C GENERIC IP | Conversion | Pain | | 2018 | Encounter | CONVERSION [address] | Transaction, | | | | | [address] | Provider Unknown | | | | | [place], [place] | [phone] | | | | | [address] | | | | | | [phone] | | | +--------+ + + + [...] + + + +---------+ + + | atorvaSTATin | Take 40 mg by mouth | | 0 | 11/23/19 | | | (LIPITOR) 40 mg | nightly. | | | 17 | | | tablet | | | | | | + + + +---------+ + + | azithromycin | Take 250 mg by mouth | | 0 | 04/25/19 | | | (ZITHROMAX) 250 mg | daily as needed. | | | 18 | | | tablet | TAKE TWO TABLETS BY | | | | | | | MOUTH NOW then ONE | | | | | | | TABLET DAILY DAY 2-5 | | | | | + + + +---------+ + + | cholecalciferol | Take 1 capsule by | | 0 | 08/12/19 | | | (VITAMIN D-3) 1,000 | mouth nightly. | | | 15 | | | units capsule | | | | | | + + + +---------+ + + | Coenzyme Q10 | Take 200 mg by mouth | | 0 | 11/23/19 | | | (COQ10) 100 MG CAPS | daily. | | | 17 | | + + + +---------+ + + | gabapentin | take 1 capsule by | | 0 | 01/23/20 | | | (NEURONTIN) 300 mg | mouth three times a | | | 18 | | | capsule | day if needed for | | | | | | | pain | | | | | + + + +---------+ + + | gabapentin | Take 600 mg by mouth | | 0 | 01/26/20 | | | (NEURONTIN) 600 MG | 3 (three) times | | | 18 | | | tablet | daily as needed. | | | | | + + + +---------+ + + | | Take 1 tablet by | 180 | 3 | 04/25/19 | | | hydroCHLOROthiazide | mouth 2 (two) times | tablet | | 18 | | | 25 mg tablet | daily. | | | | | + + + +---------+ + + | | take 1 tablet by | | 0 | 01/23/20 | | | HYDROcodone-acetamin | mouth every 4 to 6 | | | 18 | | | ophen (NORCO) 5-325 | hours if needed for | | | | | | mg per tablet | pain | | | | | + + + +---------+ + + | magnesium oxide | Take 250 mg by mouth | | 0 | 08/12/19 | | | 250 MG TABS | nightly. | | | 15 | | + + + +---------+ + + | meloxicam (MOBIC) | Take 7.5 mg by mouth | | 0 | 01/23/20 | | | 7.5 mg tablet | 2 (two) times | | | 18 | | | | daily. | | | | | + + + +---------+ + + | methylPREDNISolone | take by mouth as | | 0 | 01/23/20 | | | (MEDROL DOSEPAK) 4 | directed PER PACKAGE | | | 18 | | | mg tablet | DIRECTIONS | | | | | + + + +---------+ + + | metoprolol | Take 25 mg by mouth | | 0 | 11/23/19 | | | tartrate (LOPRESSOR) | 2 (two) times daily. | | | 17 | | | 25 mg tablet | | | | | | + + + +---------+ + + | predniSONE | take 2 tablets by | | 0 | 01/26/20 | | | (DELTASONE) 20 mg | mouth once daily for | | | 18 | | | tablet | 5 days then take 1 | | | | | | | tablet ... (REFER | | | | | | | TO PRESCRIPTION | | | | | | | NOTES). | | | | | + + + +---------+ + + documented as of this encounter Plan of Treatment Not on filedocumented as of this encounter Procedures + +--------+ + + + | Procedure Name | Priori | Date/Time | Associated Diagnosis | Comments | | | ty | | | | + +--------+ + + + | XR LUMBAR SPINE 2 OR | Routin | 01/22/2018 | | Results for this | | 3 VW | e | 3:10 AM | | procedure are in the | | | | PDT | | results section. | + +--------+ + + + documented in this encounter Results XR Lumbar Spine 2 or 3 Vw (01/22/2018 3:10 AM PDT) + + | Specimen | + + | | + + + + + | Narrative | Performed At | + + + | This is a non-reportable procedure without a radiologist report and | | | is used for image storage only | | + + + + + | Procedure Note | + + | Francesco Reyes - 11/19/2018 9:25 AM PDT This is a non-reportable procedure | | without a radiologist report and isused for image storage only | + + documented in this encounter Visit Diagnoses + + | Diagnosis | + + | Pain Generalized pain | + + documented in this encounter"
--- OUTSIDE RECORDS SUMMARY | ~2019-10-12 | XMS | Encounter Summary ---
Demographics + + + | Address | [address] | | | [place] [address] | + + + | Home Phone | | + + + | Preferred Language | Unknown | + + + | Marital Status | | + + + | Hindu Affiliation | 1013 | + + + | Race | Unknown | + + + | Ethnic Group | Unknown | + + + Author + + + | Author | [facility] | | | and [place] | + + + | Organization | [facility] | | | and [...] Team Providers + +------+ + | Care Director Of Field Coordination Name | Role | Phone | + +------+ + PCP | Unavailable | + +------+ + Encounter Details +--------+ + + + + | Date | Type | Department | Care Team | Description | +--------+ + + + + | 08/19/ | Hospital | [facility] | Will Hinson MD | CAD (coronary artery | | 2015 - | Encounter | [facility] | [address] | disease) | | | | CARE FLOOR [address] | [place] | | | [address] | [address] | [address] | | | 2014 | | [place] | | | | | | [address] | | | | | | [phone] | | | +--------+ + + + [...] + + documented as of this encounter Discharge Summaries Federico Almonte PA - 08/26/2014 8:14 AM PDT Discharge Summaries by Federico Almonte PA-C at 08/26/14813 Author: Federico Almonte PA-C Service: (none) Author Type: Physician Political Worker - Cert ified Filed: 09/16/1441 Date of Service: 08/26/14813 Status: Attested [place] Attorney: Federico Almonte PA-C (Physician Political Worker - Certified) Cosigner: Will farmer MD at 09/16/14904 Attestation signed by Will Hinson MD at 09/16/14904 Patient was seen, examined, labs, x-rays and treatment plan were reviewed. [facility] Service: Cardiothoracic Surgery Discharge Summary Date of Admission: 08/19/2014 Date of Discharge: 08/26/2014 Discharge Provider: Federico Almonte PA-C Treatment Team: Admitting Provider: Will Hinson MD Discharge Diagnoses: Active Problems: * No active hospital problems. * Resolved Problems: * No resolved hospital problems. * Procedures: Procedure(s) with comments: CABG - RYDER - sternania, NINO SULLIVAN BRIEF HISTORY OF PRESENTATION: Yasmany Pemberton is a 64 y.o. male with multiple cardiac risk factors who recently presen anaid complaining of exertional angina. He underwent a stress test which was abnormal. He subs equently underwent elective cardiac catheterization which showed severe 3-vessel coronary ar gloria disease with preserved left ventricular function. The patient was seen in consultation by cardiothoracic surgery and surgical revascularization was recommended. HOSPITAL COURSE: The patient was taken to the operating room and underwent a Coronary artery bypass grafting x5 (left internal mammary artery to left anterior descending artery, saphenous vein graft t o diagonal, saphenous vein graft to obtuse marginal 3, saphenous vein graft to right postero lateral artery, saphenous vein graft to right posterior descending artery) with endoscopic v ein harvest on 08/19/2014. Operation was uneventful (please refer to operative note for deta ils of the same). The patient tolerated the procedure well and was transferred to the ICU in tubated and in stable condition. The patient was extubated per ICU protocol and vasoactive i nfusions were weaned as tolerated. The patient was transferred to the cardiac unit, [facility]minfirm[facility] hospital[facility] mically stable. Patient was short of breath and requiring supplemental oxygen. Diuresis was started and breathing treatments were scheduled. Chest tubes and temporary pacing wires were discontinued. Respiratory status gradually improved, but patient remained dependent on supp lementary O2. Pulmonology service was consulted. CT scan of the chest was obtained. His righ t diaphragm was noted to be elevated, which was consistent with findings on an earlier chest x-ray. Fluoroscopic sniff test was performed the following day which confirmed right-sided diaphragmatic paralysis and pulmonology requested that he follow-up on an outpatient basis w ith full set of PFTs. Patient was unable to wean off oxygen. Home O2 evaluation was performe d. The patient continued to make good recovery, ambulating, tolerating cardiac diet and pass ing bowel movements. The patient was fit for discharge to home on 08/26/2014. Past Medical History Diagnosis Date Essential hypertension Benign prostatic hypertrophy without urinary obstruction Male erectile disorder Hyperlipidemia Obesity Osteoarthritis TIA (transient ischemic attack) Retinal vascular occlusion Retinal VAS occlusion ventral ret vein occ Prediabetes Coronary artery disease Joint pain Neuromuscular disorder (HCC) Previous history of left foot drop Past Surgical History Procedure Laterality Date Complete colonoscopy 09/06/2013 Back surgery 04/08/1990 Carotid artery - subclavian artery bypass graft 04/08/1996 Spine surgery Disk herniation Tonsillectomy Coronary artery bypass graft N/A 08/19/2014 Procedure: CABG - RYDER; Surgeon: Will Hinson MD; Location: [facility] OR; Service: Car diac; Laterality: N/A; sternotomy, SULLIVAN, LEVH No Known Allergies No prescriptions prior to admission DISCHARGE EXAM Vital Signs: BP 117/65 | Pulse 88 | Temp(Src) 99.6 F (37.6 C) (Oral) | Resp 20 | Ht 1.778 m (5' 10") | Wt 109.5 kg (241 lb 6.5 oz) | BMI 34.64 kg/m2 | SpO2 96% Physical Exam: GENERAL: A&Ox 3, in no acute distress. NEURO: No facial asymmetry, speech normal and non pressured. Normal range of motion in all extremities HEENT: PERRLA, EOMI; HEART: RRR with normal S1 and S2 heart sounds. No murmur, rub, heave, or gallop noted. LUNGS: Diffuse wheezes bilaterally, no rhonchi, rales. ABDOMEN: Hypoactive, Soft, nondistended, nontender to palpation with no notable masses. EXTREMITIES: warm Incision: clean, dry, and intact. No erythema, discharge, or warmth noted around the incisi on site. DATA Platelets: Lab Results Component Value Date PLT 189 08/24/2014 Hemoglobin/Hematocrit: Lab Results Component Value Date HGB 9.9* 08/24/2014 HGB 8.5* 08/19/2014 HCT 29.3* 08/24/2014 HCT 25* 08/19/2014 Potassium: Lab Results Component Value Date K 4.0 08/26/2014 BUN/Creatinine: Lab Results Component Value Date BUN 14 08/26/2014 CREATININE 0.75 08/26/2014 Magnesium: Lab Results Component Value Date MG 2.1 08/21/2014 PT/INR: Lab Results Component Value Date INR 1.3 08/19/2014 PTT: Lab Results Component Value Date APTT 31 08/19/2014 [APTT HgBA1c: Lab Results Component Value Date HGBA1C 5.9 08/20/2014 LABGLYC 123 08/20/2014 PLAN 1. Patient is discharged to home. 2. Smoking cessation was discussed with patient. Pt says he quit years ago 3. Education: a. CABG: The patient is being discharged with instructions on cardiac diet, sternal precau tions x 12 weeks and surgical incision are according to the Society of Thoracic Surgeon chris pittman. The patient is given instructions to start cardiac rehabilitation in accordance with feather drying machine operator recommendations. Pt advised not to drive for 6 weeks post discharge. Disposition: Home Condition: Stable Code Status: Prior No discharge procedures on file. Follow up: Will Hinson MD [address] [place] [id number] Schedule an appointment as soon as possible for a visit in 2 week(s) Geraldine Abdalla MD, [address] [place] [address] Schedule an appointment as soon as possible for a visit today Dulce Casas MD [address] [place] [id number] Schedule an appointment as soon as possible for a visit in 3 week(s) recommends to sleep with your head up at least 30 degrees elevation. Medication List START taking these medications albuterol 108 (90 BASE) MCG/ACT inhaler QTY: 1 Inhaler Refills: 0 Commonly known as: PROVENTIL HFA;VENTOLIN HFA Inhale 2 puffs into the lungs every 4 (four) hours as needed for Wheezing. aspirin EC 325 MG EC tablet QTY: 30 tablet Refills: 1 Take 1 tablet by mouth daily with breakfast. Replaces: aspirin 81 MG chewable tablet CHANGE how you take these medications metoprolol 25 MG tablet QTY: 30 tablet Refills: 0 Commonly known as: LOPRESSOR Take 1 tablet by mouth 2 (two) times daily. What changed: how much to take CONTINUE taking these medications magnesium oxide 400 MG tablet Refills: 0 Commonly known as: MAG-OX simvastatin 40 MG tablet Refills: 0 Commonly known as: ZOCOR Vitamin D3 1000 UNITS Caps Refills: 0 STOP taking these medications aspirin 81 MG chewable tablet Replaced by: aspirin EC 325 MG EC tablet hydrochlorothiazide 25 MG tablet Commonly known as: HYDRODIURIL lisinopril 20 MG tablet Commonly known as: ZESTRIL Where to Get Your Medications These are the prescriptions that you need to cotton picking machine operator. You may get the following medications from any pharmacy - albuterol 108 (90 BASE) MCG/ACT inhaler - aspirin EC 325 MG EC tablet - metoprolol 25 MG tablet Discharge took 30 minutes, to include final examination, discussion of admission, and prepa ration of prescriptions, instructions for on-going care, follow-up and documentation of disc harge summary. Federico Almonte PA-C 09/07/2014 docutere d in this encounter Medications at Time of Discharge [...] + + documented as of this encounter Progress Notes Conversion Transaction, Provider Unknown - 08/26/2014 1:53 PM PDTFormatting of this note m ight be different from the original. Nurse Progress Note by Areli Pak RN at 08/26/141352 Author: Areli Pak RN Service: (none) Author Type: Registered Nurse Filed: 08/26/141355 Date of Service: 08/26/141352 Status: Signed [place] Attorney: Areli Pak RN (Registered Nurse) Pt discharge teaching completed. Pt encouraged to sleep at 30 degrees per agricultural produce sorter. Pt taught the importance to us his IS after discharge . Pt reported he will not be following u p with the agricultural produce sorter but will with his feather drying machine operator. Prescriptions sent with pt. Pt disc harged alert and oriented home with his via private car. onver josseline Transaction, Provider Unknown - 08/26/2014 9:40 AM PDT Therapy Progress Note by Perry Garcia PT at 08/26/14 09 Author: Perry Garcia PT Service: (none) Author Type: Physical Therapist Filed: 08/26/14 1242 Date of Service: 08/26/14939 Status: Signed [place] Attorney: Perry Garcia PT (Physical Therapist) 08/26/14939 PT Last Visit PT Received On 08/26/14 Reason for Treatment Cardiac Requires PT Follow Up PT tech Follow up PT Only? No Assistance Required 1 person Watch Crystal Edge Grinder Needed No Precautions Cardiac Precautions Sternal Other Comments Comments Patient sitting in his recliner upon PT arrival; spouse not currently present but patient discussing home safety as it relates to mobility and sternal precautions (as patient prepares for DC today). Pt has received a script for a 4WW, encouraged him to pick this up and use it for mobilizing for the next couple weeks (especially for community mobility as pa tient desaturates with longer distances and the 4WW helps to improve this). Education on imp ortance of remaining active at home following DC (mobilizing often) to prevent secondary imp airments. Pt with a variety of appropriate questions related to activity/mobility. Pt also e ncouraged to remain using his I.S. often at home. Patient in chair at end of session, RT pre sent. Vitals at rest in sitting: HR 85, SpO2 95% w/ 2L, BP 108/56. Cognition Overall Cognitive Status WFL Orientation Level Oriented Transfers Sit to/from Stand Supervision Mobility Ambulation Assistance Supervision Maximal Ambulation Distance (feet) Gait in room without an AD observed, encouraged to use t he 4WW for distance ambulation to improve tolerance and safety: pt has been up mobilizing of ten) Activity Tolerance Activity Tolerance Patient tolerated treatment without report of fatigue Nurse Made Aware JOSE Singleton Safety Devices Safety Devices in Place (sitting in chair w/ RT presentn) Restraints Initially in Place No Plan Treatment/Interventions Amb with mobility aide Progress Progressing toward goals Recommendation Recommendations Prior Setting Equipment Recommended Walker 4 wheeled PT Ready for Discharge Yes Will Mcallister Jr., MD - 08/26/2014 8:43 AM PDTFormatting of this note might be different from t he original. Progress Notes by Will Hinson MD at 08/26/14842 Author: Will Hinson MD Service: (none) Author Type: Physician Filed: 08/26/14843 Date of Service: 08/26/14842 Status: Signed [place] Attorney: Will Hinson MD (Physician) [facility] Service: Cardiothoracic Surgery Progress Note ROOM: [address] [place] [address] Hospital Day: LOS: 7 days Post-Op Day: 7 Days Post-Op Surgery/Procedure: Procedure(s) (LRB): CABG - RYDER (N/A) SUBJECTIVE Events Overnight: Doing well. Ambulating. Appreciate Dr. Casas's consult. Awaiting sniff test today. Scheduled Medications aspirin 325 mg Oral Daily with breakfast atorvastatin 40 mg Oral Nightly docusate sodium 100 mg Oral BID famotidine 20 mg Oral BID Or famotidine 20 mg Intravenous BID insulin aspart 1-12 Units Subcutaneous TID AC insulin aspart 5-12 Units Subcutaneous Nightly insulin aspart 6 Units Subcutaneous TID AC insulin detemir 24 Units Subcutaneous Nightly ipratropium-albuterol 3 mL Nebulization Q6H magnesium hydroxide 30 mL Oral Daily metoprolol 25 mg Oral BID sodium phosphate 1 enema Rectal Once Continuous Infusions amiodarone infusion dextrose 5 % and 0.45 % NaCl Stopped (08/21/141801) insulin regular 1 unit/mL Stopped (08/21/141800) OBJECTIVE Vital Signs: BP 108/56 | Pulse 97 | Temp(Src) 98.9 F (37.2 C) (Oral) | Resp 20 | Ht 1.778 m (5' 10") | Wt 109.5 kg (241 lb 6.5 oz) | BMI 34.64 kg/m2 | SpO2 96% Physical Exam: Lungs: Decreased breath sounds at the bases Heart: Regular rate and rhythm, S1 and S2 normal, no murmur, rub or gallop Extremities: Extremities normal, atraumatic, mild edema Neurologic: CNII-XII intact. Normal strength, sensation and reflexes Throughout Wound: Clean Data Recent Labs Lab 08/24/14 0445 08/23/14 0444 WBC 10.65 9.74 RBC 2.86* 2.81* HGB 9.9* 9.6* HCT 29.3* 28.4* MCV 102.3* 101.0* MCH 34.7* 34.1* MCHC 33.9 33.8 RDW 45.9 45.9 PLT 189 155 MPV 9.1 9.2 DIFFTYPE AUTOMATED AUTOMATED Recent Labs Lab 08/26/14 0457 08/25/14 0340 NA 132* 134* K 4.0 4.1 CL 99 94* CO2 28 36* ANIONGAP 9 8 GLUF 128* 130* BUN 14 16 CREATININE 0.75 0.72 BCR 19 22 CA 9.3 9.1 EGFR >60 >60 PROBLEM LIST Active Problems: * No active hospital problems. * ASSESSMENT & PLAN Sniff test today. D/C home this afternoon. Code Status: Full Code Will Hinson MD 08/26/2014 onversion Trans action, Provider Unknown - 08/25/2014 3:53 PM PDT Case Management by QUINTIN Franco at 08/25/14 2764 Author: QUINTIN Franco Service: (none) Author Type: Police Detention Attendant Filed: 08/26/14 0954 Date of Service: 08/25/141552 Status: Addendum [place] Attorney: QUINTIN Franco (Police Detention Attendant) Related Notes: Original Note by QUINTIN Franco (Police Detention Attendant) filed at 08/26/14 0953 Devin Almonte PA-C reports to CM that pt is in need to 4ww. CM asked pt if he had preferred [employer] company, pt reports [facility] in [place]. CM spoke w/ [facility] who report ed fax machine is down currently and that pt can hold on to his prescription and get 4ww whe n they deliver 02. CM relays the above information to pt and gives pt script for 4ww. Pt r eports this will be fine. QUINTIN Franco onver josseline Transaction, Provider Unknown - 08/25/2014 3:41 PM PDT Progress Notes by Rip Dotson RN, CDE at 08/25/14 1541 Author: Rip Dotson RN, CDE Service: (none) Author Type: Clinical Massage Therapist Filed: 08/25/14 1545 Date of Service: 08/25/14 1541 Status: Signed [place] Attorney: Rip Dotson RN, CDE (Clinical Massage Therapist) Met with patient today. Discussed A1c of 5.9% and pre Diabetes. Discussed exercise as tolerated and weight loss effects on BG control. Discussed basic patho of Diabetes and Pre Diabetes. Patient with no further questions at this time. Rip Dotson RN, CDE 08/25/2014 onver josseline Transaction, Provider Unknown - 08/25/2014 12:23 PM PDT Progress Notes by Michelle Mason CRT at 08/25/14 1223 Author: Michelle Mason CRT Service: (none) Author Type: Certified Respiratory Therapist Filed: 08/25/14 1225 Date of Service: 08/25/14 1223 Status: Signed [place] Attorney: Michelel Mason CRT (Certified Respiratory Therapist) Patient S/U with home oxygen [facility]ru [facility] per patient request. They will deliver p ortable oxygen tank to patients room today. onver josseline Transaction, Provider Unknown - 08/25/2014 11:59 AM PDT Progress Notes by Michelle Mason CRT at 08/25/14 1159 Author: Michelle Mason CRT Service: (none) Author Type: Certified Respiratory Therapist Filed: 08/25/14 1200 Date of Service: 08/25/14 1159 Status: Signed [place] Attorney: Michelle Mason CRT (Certified Respiratory Therapist) [facility] Department of Respiratory Alf Oxygen Evaluation (Evaluation is valid for 48 hours once completed) Date: 08/25/2014 RT: Michelle Mason Time: 11:15 AM Home O2 Eval at rest-Part 1 Is the patient's SpO2 88% or lower at rest & breathing room air? : No SpO2 at rest & breathing room air: 91 percent Home O2 Eval during exercise-Part 2 Is the patient's SpO2 88% or lower during exercise & breathing room air? : Yes SpO2 during exercise & breathing room air : 83 percent If yes, lpm O2 to keep SpO2 88% or higher during excercise: 2 lpm SpO2 on O2 during exercise: 92 percent Home O2 Eval Comment Eval Comment: Patient & family requested [facility]. HOME OXYGEN PROVIDER PREFERENCE PHONE FAX *NOTE* Provider must include liter flow, route of oxygen administration, frequency of use w ith duration of need in months on the prescription AND document patient s diagnosis. OXYGEN PRN IS NOT A VALID ORDER Physician Signature: Date: Time: onver josseline Transaction, Provider Unknown - 08/25/2014 10:58 AM PDT Therapy Progress Note by Perry Garcia, PT at 08/25/14 1058 Author: Perry Garcia PT Service: (none) Author Type: Physical Therapist Filed: 08/25/14 7454 Date of Service: 08/25/141057 Status: Signed [place] Attorney: Perry Garcia PT (Physical Therapist) 08/25/14 1058 PT Last Visit PT Received On 08/25/14 Reason for Treatment Cardiac Requires PT Follow Up Yes Follow up PT Only? No Precautions Cardiac Precautions Sternal Other Comments Comments Pt sitting in his recliner, vitals at rest in sitting: HR 90, BP 116/64, SpO2 95% w/ 1L. Patient hoping to DC home today, discussed home equipment to improve indep and safet y. pt declining bed mobility training at this time; cites that his bed is very high off the ground and he will be sleeping in his recliner. Pt still has limited activity tolerance toda y, but greatly improved his workload with PT to assess his ability to complete community/figueroa e distances. RT present during portion of session to assess SpO2 requirements with activity. Patient educated and was receptive to education on pursed lip breathing to improve saturati on and tolerance to sustained activity (has a tendency to desaturate with prolonged distance s). Demonstrated that he can safely ambulate short distances without UE support, but benefit s from a 4WW for stability and safety for any long distances. Vitals after activity in sitti ng: HR 106, BP 116/64, SpO2 85% RA (RT present, up to 91% w/ 1L)- RT impression is that arnulfo ent likely needs home O2 (2L). Cognition Overall Cognitive Status WFL Orientation Level Oriented Transfers Sit to/from Stand Supervision Mobility Ambulation Assistance Standby assist Maximal Ambulation Distance (feet) 300x2 Total Ambulation Distance (feet) 600 ft (1 long seated rest break between w/ RT present to assess SpO2 with an without O2) Distance limited by? Patient's ability Pattern Decreased louis;Foot drop left Assistive Device Walker 4 wheeled Modalities Other Therapy Reviewed sternal precautions, safe mobility techniques Activity Tolerance Activity Tolerance Patient tolerated treatment without report of fatigue Nurse Made Aware Yes Safety Devices Safety Devices in Place (sitting in chair w/ family present; RT present) Restraints Initially in Place No Plan Treatment/Interventions Continue per Primary PT POC Progress Progressing toward goals Recommendation Recommendations Prior Setting;Home Assist Equipment Recommended Walker 4 wheeled PT Ready for Discharge Yes Recommendation Comments Current impression is that patient could benefit from a 4WW to impr ove his standing/gait tolerance and improve safety in upright. Pt likely safe to return home with spouse assist. onver josseline Transaction, Provider Unknown - 08/25/2014 9:15 AM PDT Progress Notes by Vanessa Colon RD at 08/25/14914 Author: Vanessa Colon RD Service: (none) Author Type: Registered Dietitian Filed: 08/25/14918 Date of Service: 08/25/14914 Status: Signed [place] Attorney: Vanessa Colon RD (Registered Dietitian) Went and provided CABG diet education while was present. Explained principles of heart healthy diet; including: eating whole, natural foods, eating a lot of protein to help heal, avoiding excess salt, and staying hydrated. Both pt and expressed understanding and al l questions were answered at end of visit. Vanessa Colon RD Federico Das PA - 08/25/2014 6:56 AM PDTFormatting of this note might be different from belen dawn original. Progress Notes by Federico Almonte PA-C at 08/25/14655 Author: Federico Almonte PA-C Service: (none) Author Type: Physician Political Worker - Cert ified Filed: 08/25/1459 Date of Service: 08/25/14655 Status: Attested [place] Attorney: Federico Almonte PA-C (Physician Political Worker - Certified) Cosigner: Will farmer MD at 08/25/14724 Attestation signed by Will Hinson MD at 08/25/14724 Patient was seen, examined, labs, x-rays and treatment plan were reviewed. [facility] Service: Cardiothoracic Surgery Progress Note ROOM: [address] [place] [address] Hospital Day: LOS: 6 days Post-Op Day: 7 Day Post-Op Surgery/Procedure: Procedure(s) (LRB): CABG - RYDER (N/A) SUBJECTIVE Events Overnight: No events overnight, vss stable, NSR, unable to wean O2. Confusion and disorientation improved after holding narcotic medication. Wants to go home. Ambulating, tolerating diet Scheduled Medications acetaZOLAMIDE 500 mg Intravenous Once aspirin 325 mg Oral Daily with breakfast atorvastatin 40 mg Oral Nightly docusate sodium 100 mg Oral BID famotidine 20 mg Oral BID Or famotidine 20 mg Intravenous BID furosemide 20 mg Intravenous Once insulin aspart 1-12 Units Subcutaneous TID AC insulin aspart 5-12 Units Subcutaneous Nightly insulin aspart 6 Units Subcutaneous TID AC insulin detemir 24 Units Subcutaneous Nightly ipratropium-albuterol 3 mL Nebulization Q6H magnesium hydroxide 30 mL Oral Daily metoprolol 25 mg Oral BID potassium chloride 20 mEq Oral Once sodium phosphate 1 enema Rectal Once Continuous Infusions amiodarone infusion dextrose 5 % and 0.45 % NaCl Stopped (08/21/141801) insulin regular 1 unit/mL Stopped (08/21/141800) OBJECTIVE Vital Signs: BP 121/67 | Pulse 86 | Temp(Src) 97.7 F (36.5 C) (Oral) | Resp 20 | Ht 1.778 m (5' 10") | Wt 110.8 kg (244 lb 4.3 oz) | BMI 35.05 kg/m2 | SpO2 97% Physical Exam: Physical Exam: GENERAL: A&Ox 3, in no acute distress. NEURO: No facial asymmetry, speech normal and non pressured. Normal range of motion in all extremities HEENT: PERRLA, EOMI; HEART: RRR with normal S1 and S2 heart sounds. No murmur, rub, heave, or gallop noted. LUNGS: Diffuse wheezes bilaterally, no rhonchi, rales. ABDOMEN: Hypoactive, Soft, nondistended, nontender to palpation with no notable masses. EXTREMITIES: warm Incision: clean, dry, and intact. No erythema, discharge, or warmth noted around the incisi on site. Data Recent Labs Lab 08/24/14 0445 08/23/14 0444 WBC 10.65 9.74 RBC 2.86* 2.81* HGB 9.9* 9.6* HCT 29.3* 28.4* MCV 102.3* 101.0* MCH 34.7* 34.1* MCHC 33.9 33.8 RDW 45.9 45.9 PLT 189 155 MPV 9.1 9.2 DIFFTYPE AUTOMATED AUTOMATED Recent Labs Lab 08/25/14 0340 08/24/14 0445 NA 134* 132* K 4.1 4.3 CL 94* 93* CO2 36* 33* ANIONGAP 8 10 GLUF 130* 91 BUN 16 19 CREATININE 0.72 0.72 BCR 22 26 CA 9.1 8.9 EGFR >60 >60 PROBLEM LIST Active Problems: * No active hospital problems. * ASSESSMENT & PLAN 2 view CXR, continue diuresis. Continue Scheduled Duonebs, Consult pulmonology. Increase activity Will consult pulmonology as patient will need outpatient follow-up for some degree of undia gnosed COPD. Home O2 eval. DC this afternoon Code Status: Full Code The patient has been seen and the plan discussed with the attending provider, Dr. Geovanny Almonte PA-C 08/25/2014 onversio n Transaction, Provider Unknown - 08/24/2014 2:34 PM PDTFormatting of this note might be di fferent from the original. Progress Notes by PAPITO Bui at 08/24/14 1434 Author: PAPITO Bui Service: (none) Author Type: Registered Dietitian Filed: 08/24/14 1435 Date of Service: 08/24/14 1434 Status: Signed [place] Attorney: PAPITO Bui (Registered Dietitian) 08/24/14 1416 Subjective Timepoint Follow up Pt c/o attempted to visit pt and for cardiac diet education for the 3rd time for past 3 days. Pt's was not here for 10am appointment today. She decided to come tomorrow whe n pt is DC home. Diet Experience Self-selected diet(s) followed is a good cook. They usually have ham/ egg at breakfast , roast at dinner. They eat more fish and chicken now than before. They have vegetable and fruits daily. Fluid / Beverage Intake Oral Fluids Amount pt drinks liquid at mart Liquid Meal Replacement or Supplement Ensure TID with meals Food Intake Amount of Food Pt reported that he had 75% of his breakfast today. Type of Food / Meals cardiac SUSAN diet Meal / Snack Pattern house Nutrition-Focused Physical Findings Overall Appearance pt was sitting in a chair watching TV when I visited. Anthropometrics Weight change wt gain after CABG which is related to fluid positive status. Recommendations Recommended energy needs encourage small, frequent feedings and oral supplements to improve pt's po intake and post surgical recovering. Written info on diet after CABG and low salt consumption gave and brief discussed with pt. Will follow up with if she has any addit ional questions. Lora Byrd MS.CN. Clinical Dietitian onver josseline Transaction, Provider Unknown - 08/24/2014 10:25 AM PDT Therapy Progress Note by Emi Shaikh PTA at 08/24/14 1025 Author: Emi Shaikh PTA Service: (none) Author Type: Swabber Filed: 08/24/14 1053 Date of Service: 08/24/14 1025 Status: Signed [place] Attorney: Emi Shaikh PTA (Swabber) 08/24/14 1025 PT Last Visit PT Received On 05/19/15 Reason for Treatment Cardiac Requires PT Follow Up Yes Follow up PT Only? No Assistance Required 1 person Watch Crystal Edge Grinder Needed No Precautions Cardiac Precautions Sternal Other Comments Comments Pt sitting in chair upon arrival, agreeable to PT. Pt on 4L O2 with sats at 92-96% sitting in chair. O2 sats in low 80s after toileting and ambulation. Patient able to focus on pursed lip breathing while standing to bring O2 sats back into 90s. After pt frinished wi th toileting pt ambulates in guy 125ft, needing standing break due tp SOB and ambulates an additional 100ft. Pt returned to sitting in chair at end of session. Cognition Overall Cognitive Status WFL Orientation Level Oriented Transfers Sit to/from Stand Minimal assist (steadying/contact guard);Standby assist ([place] with toilet transfer due to low seat) Mobility Ambulation Assistance Standby assist Maximal Ambulation Distance (feet) 125, 100 Total Ambulation Distance (feet) 250 Distance limited by? 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 Progress Notes by Federico Almonte PA-C at 08/24/14736 Author: Federico Almonte PA-C Service: (none) Author Type: Physician Political Worker - Cert ified Filed: 08/24/1449 Date of Service: 08/24/14736 Status: Attested Addendum [place] Attorney: Federico Almonte PA-C (Physician Political Worker - Certified) Related Notes: Original Note by Federico Almonte PA-C (Physician Political Worker - Certified) filed at 08/24/1448 Cosigner: Will Hinson MD at 08/24/14928 Attestation signed by Will Hinson MD at 08/24/14928 Patient was seen, examined, labs, x-rays and treatment plan were reviewed. [facility] Service: Cardiothoracic Surgery Progress Note ROOM: [address] [place] [address] Hospital Day: LOS: 5 days Post-Op Day: 5 Day Post-Op Surgery/Procedure: Procedure(s) (LRB): CABG - RYDER (N/A) SUBJECTIVE Events Overnight: No events overnight, vss stable, NSR, remains on 2LNC. Some confusi on and disorientation overnight with pain medications. Ambulating, tolerating diet Scheduled Medications acetaminophen 15 mg/kg Intravenous Once aspirin 325 mg Oral Daily with breakfast atorvastatin 40 mg Oral Nightly docusate sodium 100 mg Oral BID famotidine 20 mg Oral BID Or famotidine 20 mg Intravenous BID furosemide 40 mg Intravenous Once insulin aspart 1-12 Units Subcutaneous TID AC insulin aspart 5-12 Units Subcutaneous Nightly insulin aspart 6 Units Subcutaneous TID AC insulin detemir 24 Units Subcutaneous Nightly ipratropium-albuterol 3 mL Nebulization Q6H magnesium hydroxide 30 mL Oral Daily metoprolol 25 mg Oral BID potassium chloride 20 mEq Oral Once sodium phosphate 1 enema Rectal Once Continuous Infusions amiodarone infusion dextrose 5 % and 0.45 % NaCl Stopped (08/21/141801) insulin regular 1 unit/mL Stopped (08/21/141800) OBJECTIVE Vital Signs: BP 128/70 | Pulse 90 | Temp(Src) 98.8 F (37.1 C) (Oral) | Resp 20 | Ht 1.778 m (5' 10") | Wt 115 kg (253 lb 8.5 oz) | BMI 36.38 kg/m2 | SpO2 95% Physical Exam: Physical Exam: GENERAL: A&Ox 3, in no acute distress. NEURO: No facial asymmetry, speech normal and non pressured. Normal range of motion in all extremities HEENT: PERRLA, EOMI; HEART: RRR with normal S1 and S2 heart sounds. No murmur, rub, heave, or gallop noted. LUNGS: Diffuse wheezes bilaterally, no rhonchi, rales. ABDOMEN: Hypoactive, Soft, nondistended, nontender to palpation with no notable masses. EXTREMITIES: warm Incision: clean, dry, and intact. No erythema, discharge, or warmth noted around the incisi on site. Data Recent Labs Lab 08/24/14 0445 08/23/14 0444 WBC 10.65 9.74 RBC 2.86* 2.81* HGB 9.9* 9.6* HCT 29.3* 28.4* MCV 102.3* 101.0* MCH 34.7* 34.1* MCHC 33.9 33.8 RDW 45.9 45.9 PLT 189 155 MPV 9.1 9.2 DIFFTYPE AUTOMATED AUTOMATED Recent Labs Lab 08/24/14 0445 08/23/14 0444 NA 132* 133* K 4.3 4.5 CL 93* 95* CO2 33* 34* ANIONGAP 10 9 GLUF 91 108* BUN 19 20 CREATININE 0.72 0.77 BCR 26 26 CA 8.9 8.9 EGFR >60 >60 PROBLEM LIST Active Problems: * No active hospital problems. * ASSESSMENT & PLAN DC narcotics Pulmonary: Continue Scheduled Duonebs, Lasix IVx2, wean O2 as tolerated Increase activity DC home once off O2 Code Status: Full Code The patient has been seen and the plan discussed with the attending provider, Dr. Geovanny Almonte PA-C 08/24/2014 onversio n Transaction, Provider Unknown - 08/23/2014 5:12 PM PDTFormatting of this note might be di fferent from the original. Therapy Progress Note by Perry Garcia PT at 08/23/141711 Author: Perry Garcia PT Service: (none) Author Type: Physical Therapist Filed: 08/23/141711 Date of Service: 08/23/141711 Status: Signed [place] Attorney: Perry Garcia PT (Physical Therapist) 08/23/14 1700 PT Last Visit PT Received On 08/23/14 Reason for Treatment Cardiac Requires PT Follow Up Unavailable Other Comments Comments Pt just recently had his CT/wires removed; PT to hold for at least 1 hour prior to getting patient up. Patient has done excellent with getting up with RN/family today; PT to follow up on 08/24 as a priority to discuss further safe mobility techniques and reinforce st ernal precautions. Federico Das PA - 08/23/2014 7:13 AM PDTFormatting of this note might be different from th e original. Progress Notes by Federico Almonte PA-C at 08/23/14712 Author: Federico Almonte PA-C Service: (none) Author Type: Physician Political Worker - Cert ified Filed: 08/23/14 1528 Date of Service: 08/23/14712 Status: Attested [place] Attorney: Federico Almonte PA-C (Physician Political Worker - Certified) Cosigner: Will farmer MD at 08/23/141718 Attestation signed by Will Hinson MD at 08/23/141718 Patient was seen, examined, labs, x-rays and treatment plan were reviewed. [facility] Service: Cardiothoracic Surgery Progress Note ROOM: 4445/[facility] Hospital Day: LOS: 4 days Post-Op Day: 4 Day Post-Op Surgery/Procedure: Procedure(s) (LRB): CABG - RYDER (N/A) SUBJECTIVE Events Overnight: No events overnight, vss stable, NSR, on 2LNC. Left Chest tube less . BM yesterday CT: 120mL/overnight, 500 24 hrs. UOP: 700mL overnight Scheduled Medications aspirin 325 mg Oral Daily with breakfast atorvastatin 40 mg Oral Nightly docusate sodium 100 mg Oral BID famotidine 20 mg Oral BID Or famotidine 20 mg Intravenous BID furosemide 40 mg Intravenous Once insulin aspart 1-12 Units Subcutaneous TID AC insulin aspart 5-12 Units Subcutaneous Nightly insulin aspart 6 Units Subcutaneous TID AC insulin detemir 24 Units Subcutaneous Nightly ipratropium-albuterol 3 mL Nebulization Q6H magnesium hydroxide 30 mL Oral Daily metoprolol 25 mg Oral BID potassium chloride 20 mEq Oral Once sodium phosphate 1 enema Rectal Once Continuous Infusions amiodarone infusion dextrose 5 % and 0.45 % NaCl Stopped (08/21/141801) insulin regular 1 unit/mL Stopped (08/21/141800) OBJECTIVE Vital Signs: BP 134/67 | Pulse 92 | Temp(Src) 98.3 F (36.8 C) (Oral) | Resp 22 | Ht 1.778 m (5' 10") | Wt 117.4 kg (258 lb 13.1 oz) | BMI 37.14 kg/m2 | SpO2 97% Physical Exam: Physical Exam: GENERAL: A&Ox 3, in no acute distress. NEURO: No facial asymmetry, speech normal and non pressured. Normal range of motion in all extremities HEENT: PERRLA, EOMI; HEART: RRR with normal S1 and S2 heart sounds. No murmur, rub, heave, or gallop noted. LUNGS: Diffuse wheezes bilaterally, no rhonchi, rales. ABDOMEN: Hypoactive, Soft, nondistended, nontender to palpation with no notable masses. EXTREMITIES: warm Incision: clean, dry, and intact. No erythema, discharge, or warmth noted around the incisi on site. Data Recent Labs Lab 08/23/1444308/22/14415 WBC 9.74 10.21 RBC 2.81* 2.81* HGB 9.6* 9.6* HCT 28.4* 28.8* MCV 101.0* 102.7* MCH 34.1* 34.2* MCHC 33.8 33.3 RDW 45.9 45.5 PLT 155 115* MPV 9.2 9.4 DIFFTYPE AUTOMATED AUTOMATED Recent Labs Lab 08/23/1444308/22/14415 NA 133* 131* K 4.5 4.6 CL 95* 98* CO2 34* 29 ANIONGAP 9 9 GLUF 108* 144* BUN 20 18 CREATININE 0.77 0.77 BCR 26 23 CA 8.9 8.7 EGFR >60 >60 PROBLEM LIST Active Problems: * No active hospital problems. * ASSESSMENT & PLAN Watch pleural tube today, out if drainage is minimal. Pulmonary: Continue Scheduled Duonebs, Lasix IVx1 this AM Increase activity DC home once tubes out and off O2 Code Status: Full Code The patient has been seen and the plan discussed with the attending provider, Dr. Geovanny Almonte PA-C 08/23/2014 onversio n Transaction, Provider Unknown - 08/22/2014 3:15 PM PDTFormatting of this note might be di fferent from the original. Progress Notes by Aida Lei RD, CD, CSP at 08/22/141514 Author: Aida Lei RD, CD, CSP Service: (none) Author Type: Registered Dietitian Filed: 08/22/141515 Date of Service: 05/17/15 1515 Status: Signed [place] Attorney: Aida Lei, RD, CD, CSP (Registered Dietitian) 08/22/14 1411 Subjective Timepoint Admit (CABG Day 3) Fluid / Beverage Intake Oral Fluids Amount Thin liquids ad mart. Liquid Meal Replacement or Supplement Pt reports he has been drinking Ensure but not today. Food Intake Amount of Food Pt reports he has not had anything to eat today. Based on documented intake pt consumed 50% of breakfast and 70% of lunch. Type of Food / Meals Cardiac, house diet. Food and Nutrition Knowledge Area(s) and Level of Knowledge Attempted to provide cardiac diet education. Pt reports he h as been on a a low salt diet for 3 days. Cound not recall if he was following a special diet prior to admit. Pt requesting his be present during education as she does meal prepara tion at home. Anthropometrics Weight change BMI indicates obesity. Biochemical data, medical tests, and procedures reviewed Biochemical data, medical tests, and procedures reviewed BG 144-on SSI, levemir. Estimated Energy Needs Total Energy Estimated Needs 6117-7743 kcal Method for Estimating Needs 25-30 kcal/kg ABW Estimated Protein Needs Total Protein Estimated Needs 102-128 g Method for Estimating Needs 1.2-1.5 g/kg ABW Recommendations Recommended energy needs Continue to monitor and encourage PO intake. Continue Ensure TID t o provide additional kcals/protein. Cardiac diet education when is present. Nutritional Risk Nutritional risk Moderate Nutritional risk comment Inadequate intake r/t decreased ability to consume sufficient inta ke AEB variable PO intake 25-70% of meals. Follow up date 08/27/14 Dulce Menchaca PT - 08/22/2014 11:00 AM PDTFormatting of this note might be different from th e original. Therapy Progress Note by Dulce Gil PT at 08/22/14 1100 Author: Dulce Gil PT Service: (none) Author Type: Physical Therapist Filed: 08/22/14 1107 Date of Service: 08/22/14 1100 Status: Signed [place] Attorney: Dulce Gil PT (Physical Therapist) 08/22/14 1100 PT Last Visit PT Received On 08/22/14 Reason for Treatment Cardiac Requires PT Follow Up Unavailable (due to dizziness/vision changes) Cognition Comments patient took oxygen off for some reason- he could not remember why- or why he took off- pulse ox (both this attempt and earlier attempt) he reported dizziness and visual [place] ges- RN also came into room - while PT was attempting to get him walking Federico Das PA - 08/22/2014 7:44 AM PDT Progress Notes by Federico Almonte PA-C at 08/22/14743 Author: Federico Almonte PA-C Service: (none) Author Type: Physician Political Worker - Cert ified Filed: 08/22/14745 Date of Service: 08/22/14743 Status: Attested [place] Attorney: Federico Almonte PA-C (Physician Political Worker - Certified) Cosigner: Will farmer MD at 08/22/14816 Attestation signed by Will Hinson MD at 08/22/14816 Patient was seen, examined, labs, x-rays and treatment plan were reviewed. [facility] Service: Cardiothoracic Surgery Progress Note ROOM: 4445/[facility] Hospital Day: LOS: 3 days Post-Op Day: 3 Day Post-Op Surgery/Procedure: Procedure(s) (LRB): CABG - RYDER (N/A) SUBJECTIVE Events Overnight: No events overnight, vss stable, NSR, on 2LNC. Still complains of L eft Chest tube pain but less and breathing is improving. CT: 70mL/overnight, 500 24 hrs. UOP: unmeasured overnight Scheduled Medications aspirin 325 mg Oral Daily with breakfast atorvastatin 40 mg Oral Nightly docusate sodium 100 mg Oral BID famotidine 20 mg Oral BID Or famotidine 20 mg Intravenous BID furosemide 40 mg Intravenous Once insulin aspart 1-12 Units Subcutaneous TID AC insulin aspart 5-12 Units Subcutaneous Nightly insulin aspart 6 Units Subcutaneous TID AC insulin detemir 24 Units Subcutaneous Nightly ipratropium-albuterol 3 mL Nebulization Q6H magnesium hydroxide 30 mL Oral Daily metoprolol 25 mg Oral BID sodium phosphate 1 enema Rectal Once Continuous Infusions amiodarone infusion dextrose 5 % and 0.45 % NaCl Stopped (05/16/15 1802) insulin regular 1 unit/mL Stopped (08/21/141800) OBJECTIVE Vital Signs: BP 107/56 | Pulse 94 | Temp(Src) 98.6 F (37 C) (Oral) | Resp 26 | Ht 1.778 m (5' 10") | Wt 119.2 kg (262 lb 12.6 oz) | BMI 37.71 kg/m2 | SpO2 89% Physical Exam: Physical Exam: GENERAL: A&Ox 3, in no acute distress. NEURO: No facial asymmetry, speech normal and non pressured. Normal range of motion in all extremities HEENT: PERRLA, EOMI; HEART: RRR with normal S1 and S2 heart sounds. No murmur, rub, heave, or gallop noted. LUNGS: Diffuse wheezes bilaterally, no rhonchi, rales. ABDOMEN: Hypoactive, Soft, nondistended, nontender to palpation with no notable masses. EXTREMITIES: warm Incision: clean, dry, and intact. No erythema, discharge, or warmth noted around the incisi on site. Data Recent Labs Lab 08/22/14 0416 08/21/14 0546 WBC 10.21 12.81* RBC 2.81* 3.05* HGB 9.6* 10.0* HCT 28.8* 31.3* MCV 102.7* 102.9* MCH 34.2* 33.0 MCHC 33.3 32.1 RDW 45.5 45.9 PLT 115* 108* MPV 9.4 9.6 DIFFTYPE AUTOMATED MANUAL Recent Labs Lab 08/22/14 0416 08/21/14 0546 NA 131* 129* K 4.6 5.2* CL 98* 100 CO2 29 26 ANIONGAP 9 8 GLUF 144* 131* BUN 18 16 CREATININE 0.77 0.77 BCR 23 21 CA 8.7 8.5 EGFR >60 >60 PROBLEM LIST Active Problems: * No active hospital problems. * ASSESSMENT & PLAN Watch pleural tube today, out if drainage is minimal, dc wires Pulmonary: Continue Scheduled Duonebs, Lasix IVx1 this AM POD#3 Bowel care, miralax prn Increase activity Code Status: Full Code The patient has been seen and the plan discussed with the attending provider, Dr. Geovanny Almonte PA-C 08/22/2014 Oliver Patricio OTR/Mario - 08/21/2014 1:05 PM PDTFormatting of this note might be different from the o riginal. Therapy Progress Note by JUNIE Kothari at 08/21/14 1305 Author: JUNIE Kothari Service: (none) Author Type: Occupational Therapist Filed: 08/21/14 0776 Date of Service: 08/21/14 1305 Status: Signed [place] Attorney: JUNIE Kothari (Occupational Therapist) 08/21/14 1305 Precautions Cardiac Precautions Sternal Home Environment Type of Home Home two story Home Exterior Layout 1-3 steps;Rail on R ascending Home Interior Layout Lives on main level with bedroom/bathroom Bathroom Shower/Tub Shower unit with threshold Bathroom Toilet Raised Bathroom Equipment Shower chair;Sponge long handled;Commode / 3-in-1 Home Equipment None Prior Function Level of [place] Independent with functional mobility;Independent with ADLs;Independe nt with IADLs Lives With Spouse Receives Help From Family ADL Assistance Independent Home ADL's Independent 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 Pt and have no concern s. ADL Additional Comments Pt refused to participate in adls, was "semi receptive" to education on sternal precautions and AT stating "sure" throughout session. very receptive to educat ion and handouts. Vision-Basic Assessment Current Vision Wears glasses Cognition Overall Cognitive Status WFL Orientation Level Oriented Sensation Light Touch No apparent deficits RUE Assessment RUE Assessment WFL (within sternal precautions) LUE Assessment LUE Assessment WFL Hand Function Gross Grasp Functional Functional Gross Grasp Able to grasp objects without difficulty Coordination Functional Assessment Assessment Decreased ADL status;Decreased endurance;Decreased self-care trans;Decreased hig h-level ADLs Prognosis Good;With family Plan Treatment Interventions Compensatory technique education;Patient/Family training;Equipment eval/education;ADL retraining Progress Discontinue OT OT Frequency Evaluation/screen only, no additonal treatment Requires OT Follow Up No Recommendation Recommendation Return to prior living conditions;Home with 24 hr suppervision/assist Equipment Recommended Train Brakeman Education Completed: Education Topic: ot role, adl training, AE needs, AT, sternal precautions Completed with: Patient, Spouse Completed by: Written Material, Verbal Education, Demonstration Response to Education: Stated Understanding, Returned Demonstration, Reinforcement Jael lord for Education Understanding Occupational Therapy Plan: Discontinue OT services at this time. Reason for D/C-pt is not very receptive to educat ion, refusing to actively participate in adl training, has been educated on sternal pre cautions and AT/AE needs. will be assisting pt 24 7. The following recommendations are made for d/c planning at this time: Return to home w/ family support Barriers to d/c at this time include: Physical deficits impacting functional independence Self-care deficits impacting functional independence onversion Transa ction, Provider Unknown - 08/21/2014 11:55 AM PDT Therapy Progress Note by Perry Garcia PT at 08/21/14 1155 Author: Perry Garcia PT Service: (none) Author Type: Physical Therapist Filed: 08/21/14 1300 Date of Service: 08/21/14 1155 Status: Signed [place] Attorney: Perry Garcai PT (Physical Therapist) 08/21/14 1155 PT Last Visit PT Received On 08/21/14 Reason for Treatment Cardiac Requires PT Follow Up Yes Follow up PT Only? No Assistance Required 1 person Watch Crystal Edge Grinder Needed No Precautions Cardiac Precautions Sternal Other Comments Comments Patient sitting in his recliner upon PT arrival; RN noting that pt is appropriate to be seen at this time. Vitals at rest in sitting: HR 87, BP 129/58, SpO2 93% w/ 3L. Signi ficant complaints of pain over night and during this AM. Pt has had a difficult morning wit h pain management and anxiety per pt and spouse. Educated patient and spouse on importance o f activity during his recovery following cardiac surgery. Educated on sternal precautions, p t still needing alot of assist for following this at this time- will benefit from further ed ucation. Patient needing more rest breaks during gait today compared to previous days, as we ll as for positioning of the AD and for his breathing technique (pt has drop foot of the L L E at baseline per report). Pt back in chair after activity, in pain but noting that it was t olerable. (Pt still with CT/wires/wilkes/IV). Vitals after activity in sitting: HR 94, BP 134 /60, SpO2 94% w/ 3L. Cognition Overall Cognitive Status WFL Orientation Level Oriented Transfers Sit to/from Stand Minimal assist (steadying/contact guard) Mobility Ambulation Assistance Minimal assist;Verbal instruction Maximal Ambulation Distance (feet) 100x2 Total Ambulation Distance (feet) 200 ft Distance limited by? 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 WC) Modalities Modalities Other therapy Other Therapy Education on sternal precautions, activity progression and importance of acti vity to reduce the risk of secondary impairments Activity Tolerance Activity Tolerance Patient limited by pain Nurse Made Aware RN Jorge Safety Devices Safety Devices in Place (sitting in chair w/ spouse present; RN aware) Restraints Initially in Place No Plan Treatment/Interventions Continue per Primary PT POC Progress Progressing toward goals Recommendation Recommendations Prior Setting Equipment Recommended (TBD) Federico Das PA - 08/21/2014 8:21 AM PDTFormatting of this note might be different from belen dawn original. Progress Notes by Federico Almonte PA-C at 08/21/14820 Author: Federico Almonte PA-C Service: (none) Author Type: Physician Political Worker - Cert ified Filed: 08/21/14825 Date of Service: 08/21/14820 Status: Attested [place] Attorney: Federico Almonte PA-C (Physician Political Worker - Certified) Cosigner: Will farmer MD at 08/21/141657 Attestation signed by Will Hinson MD at 08/21/141657 Patient was seen, examined, labs, x-rays and treatment plan were reviewed. [facility] Service: Cardiothoracic Surgery Progress Note ROOM: 4445/44-1 Hospital Day: LOS: 2 days Post-Op Day: 1 Day Post-Op Surgery/Procedure: Procedure(s) (LRB): CABG - RYDER (N/A) SUBJECTIVE Events Overnight: HD stable, NSR, on 2LNC. Transferred to cardiac floor. Chest tube p ain and some subjective shortness of breath overnight. CT: 220mL/overnight UOP: 519mL/overnight Scheduled Medications aspirin 325 mg Oral Daily with breakfast atorvastatin 40 mg Oral Nightly docusate sodium 100 mg Oral BID famotidine 20 mg Oral BID Or famotidine 20 mg Intravenous BID furosemide 20 mg Intravenous Once ipratropium-albuterol 3 mL Nebulization Q6H magnesium hydroxide 30 mL Oral Daily metoprolol 12.5 mg Oral BID sodium phosphate 1 enema Rectal Once Continuous Infusions amiodarone infusion dextrose 5 % and 0.45 % NaCl 62 mL/hr at 08/21/14 0325 insulin regular 1 unit/mL 2.2 Units/hr (08/20/14 1051) OBJECTIVE Vital Signs: BP 128/93 | Pulse 96 | Temp(Src) 98.5 F (36.9 C) (Oral) | Resp 30 | Ht 1.778 m (5' 10") | Wt 122.7 kg (270 lb 8.1 oz) | BMI 38.81 kg/m2 | SpO2 95% Physical Exam: Physical Exam: GENERAL: A&Ox 3, in no acute distress. NEURO: No facial asymmetry, speech normal and non pressured. Normal range of motion in all extremities HEENT: PERRLA, EOMI; HEART: RRR with normal S1 and S2 heart sounds. No murmur, rub, heave, or gallop noted. LUNGS: Diffuse wheezes bilaterally, no rhonchi, rales. ABDOMEN: Hypoactive, Soft, nondistended, nontender to palpation with no notable masses. EXTREMITIES: warm Incision: clean, dry, and intact. No erythema, discharge, or warmth noted around the incisi on site. Data Recent Labs Lab 08/21/14 0546 08/20/144 WBC 12.81* 16.59* RBC 3.05* 3.47* HGB 10.0* 11.6* HCT 31.3* 35.5* MCV 102.9* 102.3* MCH 33.0 33.4 MCHC 32.1 32.6 RDW 45.9 47.7 PLT 108* 140* MPV 9.6 9.4 DIFFTYPE MANUAL MANUAL Recent Labs Lab 08/21/14 0546 08/20/14 1908 08/20/14 0324 NA 129* -- -- 135 K 5.2* 4.5 < > 4.9 CL 100 -- -- 105 CO2 26 -- -- 24 ANIONGAP 8 -- -- 11 GLUF 131* -- -- 131* BUN 16 -- -- 17 CREATININE 0.77 -- -- 0.97 BCR 21 -- -- 18 CA 8.5 -- -- 8.2* EGFR >60 -- -- >60 < > = values in this interval not displayed. PROBLEM LIST Active Problems: * No active hospital problems. * ASSESSMENT & PLAN DC Mediastinal tube, leave pleural for now DC Endo-tool after breakfast this AM Pulmonary: Continue Scheduled Duonebs, Lasix IVx1 this AM Increase activity Code Status: Full Code The patient has been seen and the plan discussed with the attending provider, Dr. Geovanny Almonte PA-C 08/21/2014 onversio n Transaction, Provider Unknown - 08/21/2014 3:51 AM PDTFormatting of this note might be di fferent from the original. Nurse Progress Note by Zeynep Nicolas RN at 08/21/14350 Author: Zeynep Nicolas RN Service: (none) Author Type: Registered Nurse Filed: 08/21/14 0403 Date of Service: 08/21/14350 Status: Signed [place] Attorney: Zeynep Nicolas RN (Registered Nurse) Pt is complaining of chest pain 9/10, made worse by coughing. The chest tubes are very pain ful for him. Tylenol given at 2245, 10 mg of oxycodone given at 0144, and 0.5 mg of dilaudid given at 0345. Ice pack placed over chest tube insertion site. Placed pt up in chair with o xygen 3L NC.O2 97%. Labored breathing with occasional grunting. Pt states that it hurts exce ssively when coughing. Pt is diaphoretic and states that he feels hot. HR: 86, BP: 130/60. P t is very anxious. onver josseline Transaction, Provider Unknown - 08/20/2014 2:54 PM PDT Therapy Progress Note by Silviano Clayton PT at 08/20/14 0604 Author: Silviano Clayton PT Service: Physical Medicine and Rehab Author Type: Physical Therapist Filed: 08/20/14 193 Date of Service: 08/20/141453 Status: Signed [place] Attorney: Silviano Clayton PT (Physical Therapist) 08/20/14 8280 PT Last Visit PT Received On 08/20/14 (Pt. ambulating in hallway w/ RN Amie. Appears steady.) Requires PT Follow Up Yes onver josseline Transaction, Provider Unknown - 08/20/2014 1:57 PM PDT Case Management by QUINTIN Ramos at 08/20/14 1357 Author: QUINTIN Ramos Service: (none) Author Type: Well Logger Filed: 08/20/14 1402 Date of Service: 08/20/14 336 Status: Signed [place] Attorney: QUINTIN Ramos (Well Logger) 08/20/14 1351 Discharge Planning Evaluation Admitting Diagnosis POD 1 CABG Readmission No Living Arrangements Spouse/significant other Support Systems Spouse/significant other Type of Residence Private residence House type House-1 story Bathrooms on 1st Floor 1-Full Independent with ADL's Yes Independent with Mobility Yes Home Care Services No Caregiver after Discharge Yes Relationship to Patient spouse Mental Status Oriented Prior functional status Independent prior to admit. 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 plasn t o be with pt 24/ the first 10-14 days. Anticipated Discharge Plan Plan communicated to patient/family Yes Resources Financial concerns No Transportation issues No Patient/Family concerns No Prescription Plan Yes Name of Pharmacy [facility] in [place] Anticipated Disposition Facility Type Home Met with: patient and his and discussed discharge planning, Pt is a 64 y.o., male POD from CABG. Pt was sitting up i n his chair playing on his lap top. He has already walked around the Unit. plans to be with pt after d/c. They are self employed and are together all the time. No d/c needs iden tified. Very pleasant patient. Patient's PCP is: Geraldine Abdalla MD Patient's insurance: [employer] Plan Coverage concerns: Medication coverage/concerns: [facility] Bedside Delivery: Community resources utilized / needed: Assistance in transportation: will transport Identification of any specific education / training: Barriers to Discharge / Alternative housing needed: Anticipated DCP: Home with to assist Monisha Gould onver josseline Kenney, Provider Unknown - 08/20/2014 9:44 AM PDT Therapy Progress Note by Silviano Clayton PT at 08/20/14943 Author: Silviano Clayton PT Service: Physical Medicine and Rehab Author Type: Physical Therapist Filed: 08/20/14 193 Date of Service: 08/20/14943 Status: Signed [place] Attorney: Silviano Clayton PT (Physical Therapist) 08/20/14943 PT Last Visit PT Received On 08/20/14 Reason for Treatment Cardiac Requires PT Follow Up Yes Follow up PT Only? 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) Comments available 29/10 for assistance post d/c RUE Assessment RUE Assessment WFL LUE Assessment LUE Assessment WFL RLE Assessment RLE Assessment WFL LLE Assessment LLE Assessment WFL Cognition Overall Cognitive Status WFL Orientation Level Oriented Assessment of Patient Status Assessment of Patient Status Decreased functional mobility;Decreased ADL status;Precaution s;Pain Prognosis Should progress with skilled therapy intervention Safety Devices Safety Devices in Place (call light in reach, in room) Precautions Cardiac Precautions Sternal Activity Tolerance Endurance Good Sitting Balance Sits without support for > 30 sec Plan Treatment/Interventions Cardiac protocol PT Frequency Twice a day;Once per day;5-7x/wk Care Duration (# of days) 7 # of days Recommendation Recommendations Prior Setting Recommendation Comments Pt demonstrates good strength and endurance. Was able to walk >200f t on first attempt POD1. is attentive and will be present 29/10 upon d/c. 08/20/14 0944 PT Last Visit PT Received On 08/20/14 Reason for Treatment Cardiac Requires PT Follow Up Yes Follow up PT Only? Yes PT Eval/Reassessment Date 08/20/14 Assistance Required 1 person;2 person (for lines) Watch Crystal Edge Grinder Needed No Precautions Cardiac Precautions Sternal Other Comments Comments Pt is 64 yo M s/p CABGx5. Significant PMH includes TIA, HTN, hyperlipidemia, carot id artery bypass, and lumbar surgery. Pt reports tightness in chest and pain with deep breat giuliano. On 4L O2 through oxymask. Pt required CGA for STS and ambulation. Tolerated activity w ithout fatigue. VS pre:109/56, 68, 97% post: 109/58, 87, 91%. Pt. educated in PT POC, ellis al precautions, mobility considerations post op. Cognition Overall Cognitive Status WFL Orientation Level Oriented Transfers Sit to/from Stand Minimal assist (steadying/contact guard) Mobility Ambulation Assistance Minimal assist;Standby assist Maximal Ambulation Distance (feet) 225 Total Ambulation Distance (feet) 250 Distance limited by? 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 Was able to walk >200f t on first attempt POD1. is attentive and will be present 29/10 upon d/c. Federico Das PA - 08/20/2014 8:38 AM PDTFormatting of this note might be different from eblen dawn original. Progress Notes by Federico Almonte PA-C at 08/20/14 1654 Author: Federico Almonte PA-C Service: (none) Author Type: Physician Political Worker - Cert ified Filed: 08/20/14 8881 Date of Service: 08/20/1438 Status: Attested [place] Attorney: Federico Almonte PA-C (Physician Political Worker - Certified) Cosigner: Will farmer MD at 08/20/141754 Attestation signed by Will Hinson MD at 08/20/141754 Patient was seen, examined, labs, x-rays and treatment plan were reviewed. [facility] Service: Cardiothoracic Surgery Progress Note ROOM: Hospital Day: LOS: 1 day Post-Op Day: 1 Day Post-Op Surgery/Procedure: Procedure(s) (LRB): CABG - RYDER (N/A) SUBJECTIVE Events Overnight: HD stable, on 80 SUSHILA., NSR. Extubated, up to chair, neuro intact. S ome dizziness this AM otherwise no complaints. CT: 160mL/overnight UOP: 641mL/overnight Scheduled Medications albuterol 6 puff Ventilator Q4H aspirin 324 mg Per NG tube Nightly Or aspirin 325 mg Oral Nightly Or aspirin 300 mg Rectal Nightly [START ON 08/21/2014] bisacodyl 20 mg Rectal Once ceFAZolin 2 g Intravenous Q8H docusate sodium 100 mg Oral BID famotidine 20 mg Oral BID Or famotidine 20 mg Intravenous BID magnesium hydroxide 30 mL Oral Daily metoprolol 12.5 mg Oral BID [START ON 08/21/2014] sodium phosphate 1 enema Rectal Once Continuous Infusions amiodarone infusion dexmedetomidine in NS Stopped (08/19/14 1700) dextrose 5 % and 0.45 % NaCl 62 mL/hr at 08/19/14 1519 EPINEPHrine in D5W 32 mcg/mL 1 mcg/min (08/19/14 1600) insulin regular 1 unit/mL 2 Units/hr (08/19/14 1520) nitroGLYCERIN in D5W Stopped (08/19/14 1521) norepinephrine in D5W 64 mcg/mL phenylephrine in NS 320 mcg/mL 80 mcg/min (08/19/14 1800) sodium chloride (IV) 30 mL/hr (08/19/14 1522) OBJECTIVE Vital Signs: BP 98/57 | Pulse 65 | Temp(Src) 99.9 F (37.7 C) (Bladder) | Resp 21 | Ht 1.778 m (5' 10 ") | Wt 111.1 kg (244 lb 14.9 oz) | BMI 35.14 kg/m2 | SpO2 95% Physical Exam: Physical Exam: GENERAL: A&Ox 3, in no acute distress. NEURO: No facial asymmetry, speech normal and non pressured. Normal range of motion in all extremities HEENT: PERRLA, EOMI; HEART: RRR with normal S1 and S2 heart sounds. No murmur, rub, heave, or gallop noted. LUNGS: Diffuse wheezes, no rhonchi, rales. ABDOMEN: Hypoactive, Soft, nondistended, nontender to palpation with no notable masses. EXTREMITIES: warm Incision: clean, dry, and intact. No erythema, discharge, or warmth noted around the incisi on site. Data Recent Labs Lab 08/20/14 0324 08/19/14 1503 WBC 16.59* 15.68* RBC 3.47* 3.59* HGB 11.6* 12.3* HCT 35.5* 36.5* MCV 102.3* 101.8* MCH 33.4 34.3* MCHC 32.6 33.7 RDW 47.7 44.6 PLT 140* 128* MPV 9.4 8.3 DIFFTYPE MANUAL MANUAL Recent Labs Lab 08/20/14 0324 08/20/14 0041 08/19/14 1503 NA 135 -- -- 143 K 4.9 5.1* < > 4.4 CL 105 -- -- 110* CO2 24 -- -- 23 ANIONGAP 11 -- -- 14 GLUF 131* -- -- 117* BUN 17 -- -- 18 CREATININE 0.97 -- -- 0.98 BCR 18 -- -- 19 CA 8.2* -- -- 7.9* EGFR >60 -- -- >60 < > = values in this interval not displayed. PROBLEM LIST Active Problems: * No active hospital problems. * ASSESSMENT & PLAN HD stable, DC Orinda Major catheter, wean SUSHILA as tolerated Scheduled Duonebs Increase activity Code Status: Full Code The patient has been seen and the plan discussed with the attending provider, Dr. Geovanny Almonte PA-C 08/20/2014 onversio n Transaction, Provider Unknown - 08/19/2014 7:47 PM PDTFormatting of this note might be di fferent from the original. Progress Notes by Jason Negrete at 08/19/141946 Author: Jason Negrete Service: (none) Author Type: Solutions Development Analyst Filed: 08/19/141947 Date of Service: 08/19/141946 Status: Signed [place] Attorney: Jason Negrete () On and off pump reports delivered per protocols to family. JODI Patel onver josseline Transaction, Provider Unknown - 08/19/2014 3:13 PM PDT Progress Notes by Vanessa Gannon RPH at 08/19/141512 Author: Vanessa Gannon RPH Service: (none) Author Type: Pharmacist Filed: 08/19/141512 Date of Service: 08/19/141512 Status: Signed [place] Attorney: Vanessa Gannon RPH (Pharmacist) Clinical Pharmacy Note: Renal Monitoring Yasmany Pemberton 64 y.o. male Ht Readings from Last 1 Encounters: 08/19/14 1.778 m (5' 10") Wt Readings from Last 1 Encounters: 08/19/14 113.4 kg (250 lb) Creatinine clearance cannot be calculated (Patient's most recent sCr result is older than t he maximum 3 days allowed.) Pharmacy dosing for renal function per Dr. Federico Almonte PA-C. Currently, there are no labs. Pharmacy will adjust medications, if necessary, when labs are reported. Vanessa Gannon PharmD 08/19/2014 3:13 PM onver josseline Transaction, Provider Unknown - 08/19/2014 10:04 AM PDT Progress Notes by Janet Freire at 08/19/141003 Author: Janet Freire Service: (none) Author Type: Filed: 08/19/14 1006 Date of Service: 08/19/141003 Status: Signed [place] Attorney: Janet Freire () Met with aYsmany and his Kaylah for pre op prayer and support. Their three sons will be coming to support this weekend. Kaylah prefers to be alone as she jarad with this change o f course that resullted in this heart surgery. Prayer is important to her as well order Will farmer Jr., MD - 08/19/2014 7:18 AM PDTFormatting of this note might be different from t he original. Progress Notes by Will Hinson MD at 08/19/14717 Author: Will Hinson MD Service: (none) Author Type: Physician Filed: 08/19/14718 Date of Service: 08/19/14717 Status: Signed [place] Attorney: Will Hinson MD (Physician) Please see office note 08/17/14 Anginal symptoms Severe CAD CABG today documented in th is encounter Consult Notes Dulce Casas MD - 08/25/2014 5:56 PM PDT Consult* by Dulce Casas MD at 08/25/141755 Author: Dulce Casas MD Service: Pulmonology Author Type: Physician Filed: 08/25/14 1822 Date of Service: 08/25/141755 Status: Signed [place] Attorney: Dulce Casas MD (Physician) [facility] Service: PULMONOLOGY Initial Consult Note Date of Admission: 08/19/2014 Reason for Consultation: Hypoxemia Requesting Physician: Dr Hinson, Cardiothoracic Surgery History Obtained From: patient CHIEF COMPLAINT: Chest pain HISTORY OF PRESENT ILLNESS The patient is a 64 y.o. male with significant past medical history of HTN, HPL, family hi story of CAD, who presented with exertional angina of about 4 weeks duration. He was worked up for his symptoms by his Hat Former and was found to have severe CAD needing interventio n and revascularization. He underwent CABGx5 (SULLIVAN to LAD, SVG to diagonal, SVG to obtuse ma rginal, SVG to R posterolateral artery, SVG to R posterior descending) on 08/19/14. He was a routine case and was transferred to the floor without significant events. He did have an epi sode of confusion which was thought to be due to a narcotic medication. He had bilateral eff usions and was given diuretics for this. He continued to have a need for oxygen at 1.5-2LPM. He has sputum which is white to yellowish which he continues to try to expectorate. Pre-operatively, he reportedly did not complain of exertional dyspnea. He is fairly active at home. He denies a chronic cough. He denies orthopnea, PNDs, and apneic episodes. He repor tedly sleeps well while flat on his back. He is a past smoker. Stopped 20 years ago, less than a pack a day. 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 * REVIEW OF SYSTEMS Review of Systems Constitutional: Positive for malaise/fatigue. Negative for fever, chills, weight loss and d iaphoresis. HENT: Negative for congestion, nosebleeds and sore throat. Eyes: Negative. Negative for blurred vision, photophobia, pain and redness. Respiratory: Positive for cough, sputum production and shortness of breath. Negative for he moptysis, wheezing and stridor. Cardiovascular: Positive for chest pain (surgical) and leg swelling. Negative for palpitati ons, orthopnea and PND. Gastrointestinal: Negative for heartburn, nausea, vomiting, abdominal pain, diarrhea, const ipation, blood in stool and melena. Genitourinary: Negative for dysuria, urgency, frequency and flank pain. Musculoskeletal: Negative for myalgias, back pain, joint pain and neck pain. Skin: Negative. Negative for itching and rash. Neurological: Negative for dizziness, sensory change, speech change, focal weakness, loss o f consciousness, weakness and headaches. Past Medical History Diagnosis Date Essential hypertension Benign prostatic hypertrophy without urinary obstruction Male erectile disorder Hyperlipidemia Obesity Osteoarthritis TIA (transient ischemic attack) Retinal vascular occlusion Retinal VAS occlusion ventral ret vein occ Prediabetes Coronary artery disease Joint pain Neuromuscular disorder Previous history of left foot drop Past Surgical History Procedure Laterality Date Complete colonoscopy 09/06/2013 Back surgery 04/08/1990 Carotid artery - subclavian artery bypass graft 04/08/1996 Spine surgery Disk herniation Tonsillectomy Coronary artery bypass graft N/A 08/19/2014 Procedure: CABG - RYDER; Surgeon: Will Hinson MD; Location: [facility] OR; Service: Car diac; Laterality: N/A; sternotomy, SULLIVAN, LEVH No Known Allergies Prescriptions prior to admission Medication Sig Dispense Refill Cholecalciferol (VITAMIN D3) 1000 UNITS CAPS Take 1 capsule by mouth nightly. magnesium oxide (MAG-OX) 400 MG tablet Take 400 mg by mouth nightly. simvastatin (ZOCOR) 40 MG tablet Take 40 mg by mouth nightly. Scheduled Medications aspirin 325 mg Oral Daily with breakfast atorvastatin 40 mg Oral Nightly docusate sodium 100 mg Oral BID famotidine 20 mg Oral BID Or famotidine 20 mg Intravenous BID insulin aspart 1-12 Units Subcutaneous TID AC insulin aspart 5-12 Units Subcutaneous Nightly insulin aspart 6 Units Subcutaneous TID AC insulin detemir 24 Units Subcutaneous Nightly ipratropium-albuterol 3 mL Nebulization Q6H magnesium hydroxide 30 mL Oral Daily metoprolol 25 mg Oral BID sodium phosphate 1 enema Rectal Once Continuous Infusions amiodarone infusion dextrose 5 % and 0.45 % NaCl Stopped (08/21/141801) insulin regular 1 unit/mL Stopped (08/21/141800) PRN Medications acetaminophen OR acetaminophen, amiodarone bolus, amiodarone infusion, atropine, bisaco dyl, dextrose, dextrose, dextrose, dextrose, diphenhydrAMINE, hydrALAZINE, [] HYDROmo rphone FOLLOWED BY HYDROmorphone, magnesium sulfate OR magnesium sulfate OR magn esium sulfate, polyethylene glycol potassium chloride OR potassium chloride OR potassium chloride OR potassium chl oride OR potassium chloride OR potassium chloride, saline lock IV - prn tolerating P O fluid AND sodium chloride 0.9 % Family History Problem Relation Age of Onset Osteoarthritis Mother Heart failure Paternal Grandmother Heart failure Paternal Grandfather History Social History Marital Status: Spouse Name: N/A Number of Children: N/A Years of Education: N/A Occupational History Not on file. Social History Main Topics Smoking status: Former Smoker -- 0.50 packs/day for 5 years Smokeless tobacco: Never Used Comment: quit about 20yrs Alcohol Use: 1.8 oz/week 3 Shots of liquor per week Comment: nightly Drug Use: No Sexual Activity: Not on file Other Topics Concern Not on file Social History Narrative PHYSICAL EXAM Vital Signs: BP 116/64 | Pulse 91 | Temp(Src) 98.6 F (37 C) (Oral) | Resp 22 | Ht 1.778 m (5' 10") | Wt 110.8 kg (244 lb 4.3 oz) | BMI 35.05 kg/m2 | SpO2 94% Temp: [97.7 F (36.5 C)-99.1 F (37.3 C)] 97.8 F (36.6 C) (08/25 1758) BP: (114-138)/(64-85) 138/85 mmHg (08/25 1758) Heart Rate: [84-100] 97 (08/25 1758) Resp: [20-24] 20 (08/25 1758) SpO2: [93 %-97 %] 96 % (08/25 1758) Weight: [110.8 kg (244 lb 4.3 oz)] 110.8 kg (244 lb 4.3 oz) (08/25 257) Intake/Output Summary (Last 24 hours) at 08/25/141807 Last data filed at 08/25/14 0947 Gross per 24 hour Intake 0 ml Output 3525 ml Net -3525 ml I/O last 3 completed shifts: In: 2400 [P.O.:2400] Out: 3750 [Urine:3750] I/O this shift: In: - Out: 1700 [Urine:1700] Physical Exam Constitutional: He is oriented to person, place, and time. He appears well-developed. He ap pears distressed (anxious and wants to go home). HENT: Mouth/Throat: No oropharyngeal exudate. MALAMPPATI 3 Eyes: EOM are normal. Pupils are equal, round, and reactive to light. No scleral icterus. Neck: No JVD present. No thyromegaly present. Cardiovascular: Normal rate and regular rhythm. No murmur heard. PMI laterally displaced Pulmonary/Chest: No stridor. No respiratory distress. He has no wheezes. He has rales (soft crackles on the bases). Abdominal: Soft. He exhibits no mass. There is no tenderness. Protuberant Musculoskeletal: Edema: +1 pedal edema. Lymphadenopathy: He has no cervical adenopathy. Neurological: He is alert and oriented to person, place, and time. Skin: No rash noted. Psychiatric: Angry and anxious Vitals reviewed. DATA CBC: Recent Labs Lab 08/24/14 0445 08/23/14 0444 08/22/14 0416 WBC 10.65 9.74 10.21 RBC 2.86* 2.81* 2.81* HGB 9.9* 9.6* 9.6* HCT 29.3* 28.4* 28.8* MCV 102.3* 101.0* 102.7* MCH 34.7* 34.1* 34.2* MCHC 33.9 33.8 33.3 RDW 45.9 45.9 45.5 PLT 189 155 115* MPV 9.1 9.2 9.4 DIFFTYPE AUTOMATED AUTOMATED AUTOMATED Platelets: Recent Labs Lab 08/24/14 0445 08/23/14 0444 08/22/14 0416 PLT 189 155 115* CMP: Recent Labs Lab 08/25/14 0340 08/24/14 0445 08/23/14 0444 NA 134* 132* 133* K 4.1 4.3 4.5 CL 94* 93* 95* CO2 36* 33* 34* BUN 16 19 20 CREATININE 0.72 0.72 0.77 Calcium: No results for input(s): CALCIUM in the last 168 hours. Magnesium: Recent Labs Lab 08/21/14 0546 08/20/14 0324 08/19/14 1503 MG 2.1 2.3 2.9* Pulmonary Functions Testing Results: No results found for this basename: fev1, fvc, enw7vxi, tlc, dlco X-ray Chest 2 View Frontal & Lateral 08/25/2014 1. Minimal pleural effusions, best seen on the lateral view. 2. Mild scarring or atelectasis in the left lung base. 3. Mild cardiomegaly and prior sternotomy. Electron ically signed by Sam Garcia MD on 08/25/2014 8:09 AM Xr Chest 2 View 08/22/2014 1. Developing pulmonary venous hypertension, without significant interstitial edema. 2. Unchanged other findings including a left-sided chest tube, without pneumothorax . Ct Chest Without Contrast 08/25/2014 1. Small left anterior pneumothorax measuring 14 mm in thickness. 2. Right mi ddle lobe atelectasis, probably accounting for the density seen on lateral chest x-ray. 3. Small left pleural effusion tracking to the oblique fissure. 4. Mild groundglass infiltrate in right upper lobe, nonspecific. They relate to atypical edema, inflammatory disease, or a typical infection. 5. Recent sternotomy with presumed postoperative changes in the anterior mediastinum. 6. Minimal left lower lobe scarring or atelectasis. X-ray Chest 1 View 08/21/2014 FINDINGS/ IMPRESSION: Left unchanged chest tube. No pneumothorax, no pleural effusion. Low lung volumes. Right basilar mild consolidation consistent with atelectasis or aspiration. Right midlung platelike atelectasis. Left basilar atelectasis. No acute osseou s abnormality. X-ray Chest Ap Only 08/20/2014 1. Interval removal of the Orinda-Major catheter, with other unchanged life-suppo rt lines and tubes, as above. 2. Slightly improved lung volumes with diminishing bilateral subsegmental atelectasis. P M X-ray Chest 1 View 08/20/2014 1. Improving right upper lobe atelectasis with shifting bilateral perihilar an d left basilar atelectasis. 2. Removal ET tube, with otherwise unchanged tubes and lines. X-ray Chest 1 View 08/19/2014 FINDINGS/ IMPRESSION: Endotracheal tube 4.6 cm above the aydee. Left Orinda-Shira z catheter tip within the right main pulmonary artery. Left chest tube. Midline mediastinal drain in expected position. Unchanged cardiomegaly. Upper mediastinal contours are unchange d. Right upper lobe consolidation consistent with atelectasis or aspiration. No pneumothor ax. Left basilar atelectasis. No acute osseous abnormality. X-ray Chest 1 View 08/19/2014 1. Tubes and lines, as described above. 2. Low lung volumes with mild perihil ar subsegmental atelectasis. P M Results No results found for the last 72 hours. PROBLEM LIST Active Problems: * No active hospital problems. * ASSESSMENT & PLAN Mr Pemberton is a 64 yr old man who underwent CABGx5 on 08/19/14 and has persistent hypoxemi a and dyspnea. 1. Hypoxemia. CT of the chest reviewed. This showed mild atelectasis of the right middle l obe and the near atelectasis of the left lower lobe. There were areas of mild groundglass c hanges mostly in the hilar regions likely from an element of pulmonary congestion. His righ t diaphragm was also noted to be elevated, which is [facility] I also suspect that he may have a diagnosis chronic lung disease, such as c hronic obstructive pulmonary disease in light of his occupational exposures. I suggest that he continues his diuretics, oxygen supplementation between 1.5-2 L/m by susan al cannula both at rest and during ambulation. I will also have him undergo an overnight ox imetry test to determine if he desaturates at night without oxygen, which will also be sugge stive of an underlying undiagnosed obstructive sleep apnea. His body habitus certainly pred isposes him to this. He will have formal pulmonary function test in 4-6 weeks. 2. Elevated R hemidiaphragm. 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 W nereyda will confirm this by having him perform a fluoroscopic sniff test in the morning. I will f ollow up its results. Of note, he was fairly upset this afternoon as he had the impression that he will be going home today. I was told that he needed to be seen for hypoxemia and dyspnea, and I did not r ealize that my consultation was holding up his discharge. He has agreed to get the test done tomorrow, and will go home thereafter. There should be no absolute contraindications to his discharge. He already has been set up with oxygen at home. If he is inclined, he can follow up with in the outpatient in about 2 weeks or so. Code Status: Full Code Primary Care Physician: Geraldine Abdalla MD Thank you for allowing me to participate in the care of this patient. Thank you for this consult. Dulce Casas MD 08/25/2014 documented in th is encounter Miscellaneous Notes Plan of Care - Conversion Transaction, Provider Unknown - 08/26/2014 8:04 AM PDT Plan of Care by Areli Pak RN at 08/26/14803 Author: Areli Pak RN Service: (none) Author Type: Registered Nurse Filed: 08/26/14804 Date of Service: 08/26/14803 Status: Signed [place] Attorney: Areli Pak RN (Registered Nurse) Problem: Daily Care Goal: Daily care needs are met Assess and monitor ability to perform self care and identify potential discharge needs. Outcome: Progressing Is education given. Pt teaching on the importance of using the IS and taking it home for fu ture use. lan o f Care - Conversion Transaction, Provider Unknown - 08/24/2014 11:10 PM PDTFormatting of thi s note might be different from the original. Plan of Care by Merissa Tran RN at 08/24/142309 Author: Merissa Tran RN Service: (none) Author Type: Registered Nurse Filed: 08/24/142309 Date of Service: 08/24/142309 Status: Signed [place] Attorney: Merissa Tran RN (Registered Nurse) Problem: Pain Goal: Patient s pain/discomfort is manageable Assess and monitor patient s pain using appropriate pain scale. Collaborate with interdis ciplinary team and initiate plan and interventions as ordered. Re-assess patient s pain le jolene approximately 1-2 hours after pain management intervention. Premedicate as needed. Outcome: Progressing Pt's pain is improving in general but reaches 7-8/10 with coughing, PO tylenol only. Problem: Ineffective Breathing Pattern Goal: Respiratory status - gas exchange Alveolar exchange of carbon dioxide or oxygen to maintain arterial blood gas concentrations . Outcome: Progressing Pt still dependant on supplemental O2 to maintain SpO2 >92. lan o f Care - Conversion Transaction, Provider Unknown - 08/24/2014 2:45 AM PDTFormatting of thi s note might be different from the original. Plan of Care by Merissa Tran RN at 08/24/14244 Author: Merissa Tran RN Service: (none) Author Type: Registered Nurse Filed: 08/24/14244 Date of Service: 08/24/14244 Status: Signed [place] Attorney: Merissa Tran RN (Registered Nurse) Problem: Pain Goal: Report decrease in pain level Alleviation of pain or a reduction in pain to a level of comfort that is acceptable to the patient. Outcome: Progressing Pt still having pain 8-9/10 that is moderately controlled with PO pain medication lan o f Care - Conversion Transaction, Provider Unknown - 08/22/2014 8:17 PM PDTFormatting of thi s note might be different from the original. Plan of Care by Zeynep Nicolas RN at 08/22/142016 Author: Zeynep Nicolas RN Service: (none) Author Type: Registered Nurse Filed: 08/22/142019 Date of Service: 08/22/142016 Status: Signed [place] Attorney: Zeynep Nicolas RN (Registered Nurse) Pt reports MS pain of 2/10. He is resting comfortably in the chair. Lungs still wheezy, but improved compared to yesterday. O2 sats 95% 4L NC. HR 90s, BP 130/63. Pt denies SOB and rep orts he is "breating better". Will continue to monitor. lan o f Care - Conversion Transaction, Provider Unknown - 08/21/2014 8:19 PM PDTFormatting of thi s note might be different from the original. Plan of Care by Zeynep Nicolas RN at 08/21/142018 Author: Zeynep Nicolas RN Service: (none) Author Type: Registered Nurse Filed: 08/21/142019 Date of Service: 08/21/142018 Status: Signed [place] Attorney: Zeynep Nicolas RN (Registered Nurse) Pt complains of MS pain 5/10. Second IV not working. Will attempt to insert new IV. Pt does not have any questions or complaints at this time. Will continue to monitor. lan o f Care - Conversion Transaction, Provider Unknown - 08/20/2014 10:38 PM PDTFormatting of thi s note might be different from the original. Plan of Care by Zeynep Nicolas RN at 08/20/142237 Author: Zeynep Nicolas RN Service: (none) Author Type: Registered Nurse Filed: 08/20/142243 Date of Service: 08/20/142237 Status: Signed [place] Attorney: Zeynep Nicolas RN (Registered Nurse) Pt complains of pain 4/10 at chest tube insertion sites. Audible gurgling sound heard from chest tube connections, will reinforce with tape. Audible inspiratory and expiratory wheezes heard upon auscultation. Encouraged IS and turn, cough, deep breaths. HR: 88, BP: 116/56, R R: 22, afebrile. He is resting comfortably in bed. His is at bedside, and she will stay overnight. Will continue to monitor. lan o f Care - Conversion Transaction, Provider Unknown - 08/19/2014 10:00 PM PDTFormatting of thi s note might be different from the original. Plan of Care by Genevieve Beckham RN at 08/19/142199 Author: Genevieve Beckham RN Service: (none) Author Type: Registered Nurse Filed: 08/20/14 0144 Date of Service: 08/19/142199 Status: Signed [place] Attorney: Genevieve Beckham RN (Registered Nurse) Patient's pain/discomfort is manageable Progressing Patient is able to state his pain level, pain medications given with relief lan o f Care - Conversion Transaction, Provider Unknown - 08/19/2014 6:22 PM PDTFormatting of thi s note might be different from the original. Plan of Care by Tarcie Caldera RN at 08/19/141821 Author: Tracie Caldera RN Service: (none) Author Type: Registered Nurse Filed: 08/19/141821 Date of Service: 08/19/141821 Status: Signed [place] Attorney: Tracie Caldera RN (Registered Nurse) Problem: Pain Goal: Patient s pain/discomfort is manageable Assess and monitor patient s pain using appropriate pain scale. Collaborate with interdis ciplinary team and initiate plan and interventions as ordered. Re-assess patient s pain le jolene approximately 1-2 hours after pain management intervention. Premedicate as needed. Outcome: Progressing Intervention: Offer non-pharmocological pain management interventions Using pain meds as perscribed for pt comfort p Not e - Will Hinson Jr., MD - 08/19/2014 2:17 PM PDTFormatting of this note might be differ ent from the original. Op Note signed by Will Hinson MD at 08/24/14927 Author: Will Hinson MD Service: (none) Author Type: Physician Filed: 08/24/14927 Date of Service: 08/19/14 1417 Status: Addendum [place] Attorney: Will Hinson MD (Physician) Related Notes: Original Note by Will Hinosn MD (Physician) filed at 08/19/142043 JENNYKULWINDER [place]AS[place] Date of : 1950 DATE OF SERVICE August 19, 2014 PREOPERATIVE DIAGNOSES 1. Exertional angina. 2. Severe coronary artery disease. 3. Peripheral vascular disease. 4. Hyperlipidemia. 5. Transient ischemic attack. POSTOPERATIVE DIAGNOSES 1. Exertional angina. 2. Severe coronary artery disease. 3. Peripheral vascular disease. 4. Hyperlipidemia. 5. Transient ischemic attack. 6. Pulmonary hypertension. PROCEDURE 1. Coronary artery bypass grafting x5 (left internal mammary artery to left anterior descen ding artery, saphenous vein graft to diagonal, saphenous vein graft to obtuse marginal 3, sa phenous vein graft to right posterolateral artery, saphenous vein graft to right posterior d escending artery). 2. Endoscopic vein harvest. SURGEON Will Hinson MD SENIOR REACTOR OPERATOR SHANI Cueva ANESTHESIOLOGIST Moustapha Chapman MD ANESTHESIA General endotracheal. INTRAOPERATIVE COMPLICATIONS None. DRAINS A #28 chest tube x2. INTRAVENOUS FLUIDS 2600 mL. ESTIMATED BLOOD LOSS All recycled. INDICATIONS The patient is a 64-year-old white male with multiple cardiac risk factors who recently pre sented complaining of exertional angina. He underwent a stress test which was abnormal. He s ubsequently underwent elective cardiac catheterization which showed severe 3-vessel coronary artery disease with preserved left ventricular function. I saw the patient in consultation. Surgical revascularization was recommended. Risks and benefits of the procedure including but not limited to bleeding, infection, damag e to heart, lungs, and kidneys, stroke, and were discussed at length with the patient and his . He now presents for surgery. FINDINGS 1. The sternum was osteoporotic. 2. The left internal mammary artery was of adequate caliber, and had excellent flow. 3. The greater saphenous vein was of marginal quality, harvested from both lower extremitie s approximately 3 to 4 mm in diameter. 4. The LAD was 1.75 mm distally. 5. The diagonal artery was 1.5 mm. 6. Obtuse marginal 3 was 1.75 mm. 7. The RPLA was 1.5 mm. 8. The RPDA was 1.5 mm. DESCRIPTION OF PROCEDURE The patient was identified and taken to the operating room where he was placed supine on th e operating table. After the adequate induction of general endotracheal anesthesia, a Orinda-G anz catheter and arterial line were placed. The patient's neck, chest, abdomen, and lower ex tremities were prepped and draped in the usual sterile fashion. Greater saphenous vein was h arvested from both lower extremities using endoscopic techniques. All side branches were lig ated with 4-0 silk ties. A midline incision was made over the sternum and carried down to the sternal table. The ranjith rnum was divided in the midline. The left internal mammary artery was taken down from the le jolene of the left subclavian vein, down to the bifurcation at the xiphoid process. The patient was then systemically heparinized. The pedicle was divided distally. There was good flow fr om the mammary artery. It was placed in a papaverine sponge. A sternal retractor was put int o place. The pericardium was opened in the midline and suspended. When the ACT had reached 400, the patient was cannulated via the distal ascending aorta and the right atrial appendage. A harpreet nary sinus catheter was placed via the mid-right atrium. A cardioplegia needle was placed in the proximal ascending aorta. Cardiopulmonary bypass was then instituted without difficulty . The heart decompressed. The patient's temperature was allowed to drift. The aorta was then cross-clamped and the heart was arrested with 1 L of cold antegrade/retrograde cardioplegia solution. Myocardial septal temperatures were measured and kept below 15 degrees. Cardiople stephenie was given every 15 minutes during the cross-clamp period. The inferior wall was exposed. The RPLA branch was dissected. An arteriotomy was made and e xtended. Greater saphenous vein was sewn to the RPLA branch using a running 7-0 Prolene stit ch. The vein graft was measured to length for a proximal anastomosis and divided. An aortoto my was made in the right side of the aorta and extended with aortic punch. Proximal anastomo sis was constructed using a running 6-0 Prolene stitch. The RPDA was dissected. An arteriotomy was made and extended. Greater saphenous vein was se wn to the RPDA using a running 7-0 Prolene stitch. The vein graft was measured to length for a proximal anastomosis and divided. An aortotomy was made in the right side of the aorta an d extended with aortic punch. Proximal anastomosis was constructed using a running 6-0 Prole ne stitch. The lateral wall was exposed. The obtuse marginal branch was dissected. An arteriotomy was made and extended. The greater saphenous vein was sewn to the obtuse marginal branch using a running 7-0 Prolene stitch. The vein graft was measured to length for a proximal anastomosi s and divided. An aortotomy was made in the left side of the aorta and extended with an aort ic punch. Proximal anastomosis was constructed using a running 6-0 Prolene stitch. The diagonal artery was then dissected. An arteriotomy was made and extended. GSV was sewn to the diagonal with a 7-0 Prolene stitch. The graft was measured to length for a proximal a nastomosis. An aortotomy was made in the left side of the aorta and extended with an aortic punch. Proximal anastomosis was constructed using a running 6-0 Prolene stitch. The patient was rewarmed. The heart was elevated. The LAD was dissected in its mid-portion. An arteriotomy was made and extended. Left internal mammary artery was sewn to the LAD usin g a running 7-0 Prolene stitch. The pedicle was tacked to the anterior myocardium using 2 in terrupted 6-0 Prolene stitches. The patient was then placed in deep Trendelenburg position and with high suction aortic nhan t, the cross-clamp was removed. The heart returned to a sinus rhythm spontaneously. The dist al surgical sites were inspected. There was adequate hemostasis. A right ventricular pacing wire was placed. When the patient's temperature had reached 37 degrees, he was weaned from c ardiopulmonary bypass without difficulty. The patient remained hemodynamically stable. Prota mine was then given to reverse the heparin. The patient was then decannulated in the usual f ashion. All surgical sites were inspected. There was adequate hemostasis. Two small incisions were made below the main incision. A #28 right-angle chest tube was sony delvis in the left pleural space. A #28 chest tube was placed anterior to the heart. The sternu m was reapproximated with wires in the usual fashion. Subcutaneous tissues and skin were stevie sed with running Vicryl stitches. A sterile dressing was applied over the wound. The patient tolerated the procedure well and was transferred to the ICU in stable condition. P/ P//[id number] WILL HINSON MD p Note - Will Snow Jr., MD - 08/19/2014 2:14 PM PDTFormatting of this note might be different from t he original. Brief Op Note by Will Hinson MD at 08/19/14 9885 Author: Will Hinson MD Service: (none) Author Type: Physician Filed: 08/19/14 0564 Date of Service: 08/19/141413 Status: Signed [place] Attorney: Will Hinson MD (Physician) [facility] Service: Cardiothoracic Surgery Brief Op Note Pre-operative Diagnosis: Angina/CAD Post-operative Diagnosis: Same Procedure(s): CABGx5/[facility] Surgeon: Will Hinson MD Political Worker(s): Devin RICH Anesthesia: General endotrachial anesthesia Estimated Blood Loss: Recycled Other: IV Fluids: 2600 ml Indications: See pre-operative history and physical. Findings: See note Complications: none Condition: Stable See dictated operative report for full details. Will Hinson MD 08/19/2014 documented in th is encounter Plan of Treatment Not on filedocumented as of this encounter Procedures + +--------+ + + + | Procedure Name | Priori | Date/Time | Associated Diagnosis | Comments | | | ty | | | | + +--------+ + + + | POC GLUCOSE | Routin | 08/26/2014 | | Results for this | | | e | 11:13 AM | | procedure are in the | | | | PDT | | results section. | + +--------+ + + + | FL SNIFF TEST | Routin | 08/26/2014 | | Results for this | | | e | 9:38 AM | | procedure are in the | | | | PDT | | results section. | + +--------+ + + + | POC GLUCOSE | Routin | 08/26/2014 | | Results for this | | | e | 5:12 AM | | procedure are in the | | | | PDT | | results section. | + +--------+ + + + | BASIC METABOLIC | Routin | 08/26/2014 | | Results for this | | PANEL | e | 4:57 AM | | procedure are in the | | | | PDT | | results section. | + +--------+ + + + | POC GLUCOSE | Routin | 08/25/2014 | | Results for this | | | e | 9:04 PM | | procedure are in the | | | | PDT | | results section. | + +--------+ + + + | POC GLUCOSE | Routin | 08/25/2014 | | Results for this | | | e | 5:59 PM | | procedure are in the | | | | PDT | | results section. | + +--------+ + + + | POC GLUCOSE | Routin | 08/25/2014 | | Results for this | | | e | 11:59 AM | | procedure are in the | | | | PDT | | results section. | + +--------+ + + + | CT CHEST WO CONTRAST | Routin | 08/25/2014 | | Results for this | | | e | 10:23 AM | | procedure are in the | | | | PDT | | results section. | + +--------+ + + + | XR CHEST 2 VIEWS | Routin | 08/25/2014 | | Results for this | | | e | 7:02 AM | | procedure are in the | | | | PDT | | results section. | + +--------+ + + + | POC GLUCOSE | Routin | 08/25/2014 | | Results for this | | | e | 6:42 AM | | procedure are in the | | | | PDT | | results section. | + +--------+ + + + | BASIC METABOLIC | Routin | 08/25/2014 | | Results for this | | PANEL | e | 3:40 AM | | procedure are in the | | | | PDT | | results section. | + +--------+ + + + | POC GLUCOSE | Routin | 08/24/2014 | | Results for this | | | e | 9:23 PM | | procedure are in the | | | | PDT | | results section. | + +--------+ + + + | POC GLUCOSE | Routin | 08/24/2014 | | Results for this | | | e | 4:02 PM | | procedure are in the | | | | PDT | | results section. | + +--------+ + + + | POC GLUCOSE | Routin | 08/24/2014 | | Results for this | | | e | 11:27 AM | | procedure are in the | | | | PDT | | results section. | + +--------+ + + + | POC GLUCOSE | Routin | 08/24/2014 | | Results for this | | | e | 5:20 AM | | procedure are in the | | | | PDT | | results section. | + +--------+ + + + | EXTERNAL LAB: CBC | Routin | 08/24/2014 | | Results for this | | | e | 4:45 AM | | procedure are in the | | | | PDT | | results section. | + +--------+ + + + | BASIC METABOLIC | Routin | 08/24/2014 | | Results for this | | PANEL | e | 4:45 AM | | procedure are in the | | | | PDT | | results section. | + +--------+ + + + | POC GLUCOSE | Routin | 08/23/2014 | | Results for this | | | e | 9:11 PM | | procedure are in the | | | | PDT | | results section. | + +--------+ + + + | POC GLUCOSE | Routin | 08/23/2014 | | Results for this | | | e | 4:42 PM | | procedure are in the | | | | PDT | | results section. | + +--------+ + + + | POC GLUCOSE | Routin | 08/23/2014 | | Results for this | | | e | 11:10 AM | | procedure are in the | | | | PDT | | results section. | + +--------+ + + + | POC GLUCOSE | Routin | 08/23/2014 | | Results for this | | | e | 5:13 AM | | procedure are in the | | | | PDT | | results section. | + +--------+ + + + | EXTERNAL LAB: CBC | Routin | 08/23/2014 | | Results for this | | | e | 4:44 AM | | procedure are in the | | | | PDT | | results section. | + +--------+ + + + | BASIC METABOLIC | Routin | 08/23/2014 | | Results for this | | PANEL | e | 4:44 AM | | procedure are in the | | | | PDT | | results section. | + +--------+ + + + | POC GLUCOSE | Routin | 08/22/2014 | | Results for this | | | e | 9:17 PM | | procedure are in the | | | | PDT | | results section. | + +--------+ + + + | POC GLUCOSE | Routin | 08/22/2014 | | Results for this | | | e | 3:48 PM | | procedure are in the | | | | PDT | | results section. | + +--------+ + + + | POC GLUCOSE | Routin | 08/22/2014 | | Results for this | | | e | 11:45 AM | | procedure are in the | | | | PDT | | results section. | + +--------+ + + + | XR CHEST 2 VIEWS | Routin | 08/22/2014 | | Results for this | | | e | 8:03 AM | | procedure are in the | | | | PDT | | results section. | + +--------+ + + + | POC GLUCOSE | Routin | 08/22/2014 | | Results for this | | | e | 5:28 AM | | procedure are in the | | | | PDT | | results section. | + +--------+ + + + | EXTERNAL LAB: CBC | Routin | 08/22/2014 | | Results for this | | | e | 4:16 AM | | procedure are in the | | | | PDT | | results section. | + +--------+ + + + | BASIC METABOLIC | Routin | 08/22/2014 | | Results for this | | PANEL | e | 4:16 AM | | procedure are in the | | | | PDT | | results section. | + +--------+ + + + | POC GLUCOSE | Routin | 08/21/2014 | | Results for this | | | e | 9:38 PM | | procedure are in the | | | | PDT | | results section. | + +--------+ + + + | POC GLUCOSE | Routin | 08/21/2014 | | Results for this | | | e | 4:29 PM | | procedure are in the | | | | PDT | | results section. | + +--------+ + + + | POC GLUCOSE | Routin | 08/21/2014 | | Results for this | | | e | 2:23 PM | | procedure are in the | | | | PDT | | results section. | + +--------+ + + + | POC GLUCOSE | Routin | 08/21/2014 | | Results for this | | | e | 12:11 PM | | procedure are in the | | | | PDT | | results section. | + +--------+ + + + | POC GLUCOSE | Routin | 08/21/2014 | | Results for this | | | e | 11:08 AM | | procedure are in the | | | | PDT | | results section. | + +--------+ + + + | POC GLUCOSE | Routin | 08/21/2014 | | Results for this | | | e | 9:03 AM | | procedure are in the | | | | PDT | | results section. | + +--------+ + + + | POC GLUCOSE | Routin | 08/21/2014 | | Results for this | | | e | 6:56 AM | | procedure are in the | | | | PDT | | results section. | + +--------+ + + + | XR CHEST 1 VIEW | Routin | 08/21/2014 | | Results for this | | | e | 5:58 AM | | procedure are in the | | | | PDT | | results section. | + +--------+ + + + | EXTERNAL LAB: CBC | Routin | 08/21/2014 | | Results for this | | | e | 5:46 AM | | procedure are in the | | | | PDT | | results section. | + +--------+ + + + | MAGNESIUM | Routin | 08/21/2014 | | Results for this | | | e | 5:46 AM | | procedure are in the | | | | PDT | | results section. | + +--------+ + + + | BASIC METABOLIC | Routin | 08/21/2014 | | Results for this | | PANEL | e | 5:46 AM | | procedure are in the | | | | PDT | | results section. | + +--------+ + + + | POC GLUCOSE | Routin | 08/21/2014 | | Results for this | | | e | 4:39 AM | | procedure are in the | | | | PDT | | results section. | + +--------+ + + + | POC GLUCOSE | Routin | 08/21/2014 | | Results for this | | | e | 2:41 AM | | procedure are in the | | | | PDT | | results section. | + +--------+ + + + | POC GLUCOSE | Routin | 08/21/2014 | | Results for this | | | e | 12:34 AM | | procedure are in the | | | | PDT | | results section. | + +--------+ + + + | POC GLUCOSE | Routin | 08/20/2014 | | Results for this | | | e | 10:29 PM | | procedure are in the | | | | PDT | | results section. | + +--------+ + + + | POC GLUCOSE | Routin | 08/20/2014 | | Results for this | | | e | 9:25 PM | | procedure are in the | | | | PDT | | results section. | + +--------+ + + + | XR CHEST 1 VIEW | Routin | 08/20/2014 | | Results for this | | | e | 9:02 PM | | procedure are in the | | | | PDT | | results section. | + +--------+ + + + | POTASSIUM | Routin | 08/20/2014 | | Results for this | | | e | 7:08 PM | | procedure are in the | | | | PDT | | results section. | + +--------+ + + + | POC GLUCOSE | Routin | 08/20/2014 | | Results for this | | | e | 6:59 PM | | procedure are in the | | | | PDT | | results section. | + +--------+ + + + | POC GLUCOSE | Routin | 08/20/2014 | | Results for this | | | e | 6:01 PM | | procedure are in the | | | | PDT | | results section. | + +--------+ + + + | POC GLUCOSE | Routin | 08/20/2014 | | Results for this | | | e | 4:40 PM | | procedure are in the | | | | PDT | | results section. | + +--------+ + + + | POTASSIUM | Routin | 08/20/2014 | | Results for this | | | e | 4:06 PM | | procedure are in the | | | | PDT | | results section. | + +--------+ + + + | POC GLUCOSE | Routin | 08/20/2014 | | Results for this | | | e | 3:39 PM | | procedure are in the | | | | PDT | | results section. | + +--------+ + + + | POC GLUCOSE | Routin | 08/20/2014 | | Results for this | | | e | 1:30 PM | | procedure are in the | | | | PDT | | results section. | + +--------+ + + + | POTASSIUM | Routin | 08/20/2014 | | Results for this | | | e | 12:39 PM | | procedure are in the | | | | PDT | | results section. | + +--------+ + + + | POC GLUCOSE | Routin | 08/20/2014 | | Results for this | | | e | 12:23 PM | | procedure are in the | | | | PDT | | results section. | + +--------+ + + + | POC GLUCOSE | Routin | 08/20/2014 | | Results for this | | | e | 11:27 AM | | procedure are in the | | | | PDT | | results section. | + +--------+ + + + | POC GLUCOSE | Routin | 08/20/2014 | | Results for this | | | e | 10:20 AM | | procedure are in the | | | | PDT | | results section. | + +--------+ + + + | POC GLUCOSE | Routin | 08/20/2014 | | Results for this | | | e | 9:17 AM | | procedure are in the | | | | PDT | | results section. | + +--------+ + + + | POC GLUCOSE | Routin | 08/20/2014 | | Results for this | | | e | 8:10 AM | | procedure are in the | | | | PDT | | results section. | + +--------+ + + + | POTASSIUM | Routin | 08/20/2014 | | Results for this | | | e | 8:00 AM | | procedure are in the | | | | PDT | | results section. | + +--------+ + + + | POC GLUCOSE | Routin | 08/20/2014 | | Results for this | | | e | 7:14 AM | | procedure are in the | | | | PDT | | results section. | + +--------+ + + + | POC GLUCOSE | Routin | 08/20/2014 | | Results for this | | | e | 5:44 AM | | procedure are in the | | | | PDT | | results section. | + +--------+ + + + | XR CHEST 1 VIEW | Routin | 08/20/2014 | | Results for this | | | e | 5:32 AM | | procedure are in the | | | | PDT | | results section. | + +--------+ + + + | POC GLUCOSE | Routin | 08/20/2014 | | Results for this | | | e | 3:25 AM | | procedure are in the | | | | PDT | | results section. | + +--------+ + + + | EXTERNAL LAB: CBC | Routin | 08/20/2014 | | Results for this | | | e | 3:24 AM | | procedure are in the | | | | PDT | | results section. | + +--------+ + + + | MAGNESIUM | Routin | 08/20/2014 | | Results for this | | | e | 3:24 AM | | procedure are in the | | | | PDT | | results section. | + +--------+ + + + | HEMOGLOBIN A1C | Routin | 08/20/2014 | | Results for this | | | e | 3:24 AM | | procedure are in the | | | | PDT | | results section. | + +--------+ + + + | BASIC METABOLIC | Routin | 08/20/2014 | | Results for this | | PANEL | e | 3:24 AM | | procedure are in the | | | | PDT | | results section. | + +--------+ + + + | POC GLUCOSE | Routin | 08/20/2014 | | Results for this | | | e | 1:12 AM | | procedure are in the | | | | PDT | | results section. | + +--------+ + + + | POTASSIUM | Routin | 08/20/2014 | | Results for this | | | e | 12:41 AM | | procedure are in the | | | | PDT | | results section. | + +--------+ + + + | POC GLUCOSE | Routin | 08/19/2014 | | Results for this | | | e | 11:07 PM | | procedure are in the | | | | PDT | | results section. | + +--------+ + + + | POC GLUCOSE | Routin | 08/19/2014 | | Results for this | | | e | 8:46 PM | | procedure are in the | | | | PDT | | results section. | + +--------+ + + + | POTASSIUM | Routin | 08/19/2014 | | Results for this | | | e | 7:00 PM | | procedure are in the | | | | PDT | | results section. | + +--------+ + + + | POC GLUCOSE | Routin | 08/19/2014 | | Results for this | | | e | 6:00 PM | | procedure are in the | | | | PDT | | results section. | + +--------+ + + + | POC GLUCOSE | Routin | 08/19/2014 | | Results for this | | | e | 4:52 PM | | procedure are in the | | | | PDT | | results section. | + +--------+ + + + | POC GLUCOSE | Routin | 08/19/2014 | | Results for this | | | e | 4:22 PM | | procedure are in the | | | | PDT | | results section. | + +--------+ + + + | EXTERNAL LAB: CBC | Routin | 08/19/2014 | | Results for this | | | e | 3:03 PM | | procedure are in the | | | | PDT | | results section. | + +--------+ + + + | PTT | Routin | 08/19/2014 | | Results for this | | | e | 3:03 PM | | procedure are in the | | | | PDT | | results section. | + +--------+ + + + | PROTIME INR | Routin | 08/19/2014 | | Results for this | | | e | 3:03 PM | | procedure are in the | | | | PDT | | results section. | + +--------+ + + + | FIBRINOGEN | Routin | 08/19/2014 | | Results for this | | | e | 3:03 PM | | procedure are in the | | | | PDT | | results section. | + +--------+ + + + | MAGNESIUM | Routin | 08/19/2014 | | Results for this | | | e | 3:03 PM | | procedure are in the | | | | PDT | | results section. | + +--------+ + + + | CALCIUM, IONIZED | Routin | 08/19/2014 | | Results for this | | | e | 3:03 PM | | procedure are in the | | | | PDT | | results section. | + +--------+ + + + | BASIC METABOLIC | Routin | 08/19/2014 | | Results for this | | PANEL | e | 3:03 PM | | procedure are in the | | | | PDT | | results section. | + +--------+ + + + | XR CHEST 1 VIEW | Routin | 08/19/2014 | | Results for this | | | e | 3:01 PM | | procedure are in the | | | | PDT | | results section. | + +--------+ + + + | POC GLUCOSE | Routin | 08/19/2014 | | Results for this | | | e | 2:56 PM | | procedure are in the | | | | PDT | | results section. | + +--------+ + + + | ECG 12 LEAD | Routin | 08/19/2014 | | Results for this | | | e | 2:49 PM | | procedure are in the | | | | PDT | | results section. | + +--------+ + + + | XR CHEST 1 VIEW | Routin | 08/19/2014 | | Results for this | | | e | 2:40 PM | | procedure are in the | | | | PDT | | results section. | + +--------+ + + + | ECHO | Routin | 08/19/2014 | | Results for this | | TRANSESOPHAGEAL(RYDER) | e | 1:43 PM | | procedure are in the | | - PERIOPERATIVE | | PDT | | results section. | + +--------+ + + + | POC MICAELA CG8, | Routin | 08/19/2014 | | Results for this | | ARTERIAL | e | 1:35 PM | | procedure are in the | | | | PDT | | results section. | + +--------+ + + + | DELFINO RIOS, | Routin | 08/19/2014 | | Results for this | | ARTERIAL | e | 1:11 PM | | procedure are in the | | | | PDT | | results section. | + +--------+ + + + | DELFINO RIOS, | Routin | 08/19/2014 | | Results for this | | ARTERIAL | e | 12:39 PM | | procedure are in the | | | | PDT | | results section. | + +--------+ + + + | DELFINO RIOS, | Routin | 08/19/2014 | | Results for this | | ARTERIAL | e | 12:10 PM | | procedure are in the | | | | PDT | | results section. | + +--------+ + + + | DELFINO RIOS, | Routin | 08/19/2014 | | Results for this | | ARTERIAL | e | 11:40 AM | | procedure are in the | | | | PDT | | results section. | + +--------+ + + + | DELFINO RIOS, | Routin | 08/19/2014 | | Results for this | | ARTERIAL | e | 11:10 AM | | procedure are in the | | | | PDT | | results section. | + +--------+ + + + | DELFINO RIOS, | Routin | 08/19/2014 | | Results for this | | ARTERIAL | e | 9:47 AM | | procedure are in the | | | | PDT | | results section. | + +--------+ + + + | DELFINO RIOS, | Routin | 08/19/2014 | | Results for this | | ARTERIAL | e | 8:48 AM | | procedure are in the | | | | PDT | | results section. | + +--------+ + + + documented in this encounter Results POC Glucose (08/26/2014 11:13 AM PDT) + + + + + + | Component | Value | Ref Range | Performed | Pathologist | | | | | At | Signature | + + + + + + | Glucose, | 127 (H)Comment: Testing | 65 - 99 mg/dL | EXTERNAL | | | Fingerstick | performed at [facility];[address] | | LAB | | | | [address];[place] | | | | | | [address] | | | | + + + + + + + + | Specimen | + + | | + + + +---------+ + + | Performing | Address | City/State/Zipcode | Phone Number | | Organization | | | | + +---------+ + + | EXTERNAL LAB | | | | + +---------+ + + [place] Sniff Test (08/26/2014 9:38 AM PDT) + + | Specimen | + + | | + + + + + | Impressions | Performed At | + + + | 1. 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 | | + + + + + + | Narrative | Performed At | + + + | [facility] 1950 XR SNIFF TEST 08/26/2014 9:38 AM | | | EXAMINATION: Sniff test, fluoroscopic examination. INDICATION: | | | Elevated right hemidiaphragm. COMPARISON: 08/25/14 FINDINGS: | | | There is paradoxical motion of the right hemidiaphragm with | | | inspiration. The right hemidiaphragm elevates on inspiration than the | | | left hemidiaphragm depresses on inspiration. This is consistent with | | | right phrenic nerve dysfunction. | | + + + + + | Procedure Note | + + | Francesco Reyes Conversion - 11/21/2018 8:32 AM [facility]1950XR SNIFF | | TEST08/26/2014 9:38 AM EXAMINATION: Sniff test, fluoroscopic examination. INDICATION: | | Elevated right hemidiaphragm. COMPARISON: 08/25/14 FINDINGS: There is paradoxical motion | | of the right hemidiaphragm with inspiration. The right hemidiaphragm elevates on | | inspiration than the left hemidiaphragm depresses on inspiration. This is consistent | | with right phrenic nerve dysfunction. IMPRESSION: 1. Paradoxical motion of the right | | hemidiaphragm consistent with right phrenic nerve dysfunction. | | | |COMPARISON: 08/25/14 | | | |FINDINGS: | | | |There is paradoxical motion of the right hemidiaphragm with inspiration. The right hemidiap hragm elevates on inspiration than the left hemidiaphragm depresses on inspiration. This is consistent with right phrenic nerve dysfunction. | | | |IMPRESSION: | |1. Paradoxical motion of the right hemidiaphragm consistent with right phrenic nerve dysfun ction. | | | | | + + POC Glucose (08/26/2014 5:12 AM PDT) + + + + + + | Component | Value | Ref Range | Performed | Pathologist | | | | | At | Signature | + + + + + + | Glucose, | 139 (H)Comment: Testing | 65 - 99 mg/dL | EXTERNAL | | | Fingerstick | performed at [facility] | | LAB | | | | [address];[place] | | | | | | [address] | | | | + + + + + + + + | Specimen | + + | | + + + +---------+ + + | Performing | Address | City/State/Zipcode | Phone Number | | Organization | | | | + +---------+ + + | EXTERNAL LAB | | | | + +---------+ + + Basic Metabolic Panel (08/26/2014 4:57 AM PDT) + + + + + + | Component | Value | Ref Range | Performed | Pathologist | | | | | At | Signature | + + + + + + | Na | 132 (L)Comment: Testing | 135 - 143 | EXTERNAL | | | | performed at [facility], [address] | mmol/L | LAB | | | | [address], | | | | | | [place] [address] | | | | + + + + + + | K | 4.0Comment: Testing | 3.5 - 4.9 | EXTERNAL | | | | performed at [facility], [address] | mmol/L | LAB | | | | [address], | | | | | | [place] [address] | | | | + + + + + + | Cl | 99Comment: Testing | 99 - 109 mmol/L | EXTERNAL | | | | performed at [facility], [address] | | LAB | | | | [address], | | | | | | [place] [address] | | | | + + + + + + | CO2 | 28Comment: Testing | 23 - 32 mmol/L | EXTERNAL | | | | performed at [facility], [address] | | LAB | | | | [address], | | | | | | [place] [address] | | | | + + + + + + | Anion Gap | 9Comment: Testing | 5 - 20 mmol/L | EXTERNAL | | | | performed at [facility], [address] | | LAB | | | | [address], | | | | | | [place] [address] | | | | + + + + + + | Glucose, | 128 (H)Comment: Testing | 65 - 99 mg/dL | EXTERNAL | | | Fasting | performed at [facility], [address] | | LAB | | | | [address], | | | | | | [place] [address] | | | | + + + + + + | BUN | 14Comment: Testing | 8 - 25 mg/dL | EXTERNAL | | | | performed at [facility], [address] | | LAB | | | | [address], | | | | | | [place] [address] | | | | + + + + + + | Creatinine | 0.75Comment: Testing | 0.70 - 1.30 | EXTERNAL | | | | performed at [facility], [address] | mg/dL | LAB | | | | [address], | | | | | | [place] [address] | | | | + + + + + + | BUN/Creatin | 19Comment: Testing | | EXTERNAL | | | ine Ratio | performed at [facility], [address] | | LAB | | | | [address], | | | | | | [place] [address] | | | | + + + + + + | Calcium | 9.3Comment: Testing | 8.5 - 10.5 | EXTERNAL | | | | performed at [facility], [address] | mg/dL | LAB | | | | [address], | | | | | | [place] [address] | | | | + + + + + + | Estimated | >60Comment: GFR <60: | mL/min/1.73m2 | EXTERNAL | | | GFR | CHRONIC KIDNEY DISEASE, | | LAB | | | | IF FOUND OVER A 3 MONTH | | | | | | PERIOD.GFR <15: KIDNEY | | | | | | FAILURE.FOR | | | | | | AMERICANS, MULTIPLY THE | | | | | | CALCULATED GFR BY | | | | | | 1.210.Testing performed | | | | | | at [facility], [address] | | | | | | [address], | | | | | | [place] [address] | | | | + + + + + + + + | Specimen | + + | Blood specimen | | (specimen) | + + + +---------+ + + | Performing | Address | City/State/Zipcode | Phone Number | | Organization | | | | + +---------+ + + | EXTERNAL LAB | | | | + +---------+ + + POC Glucose (08/25/2014 9:04 PM PDT) + + + + + + | Component | Value | Ref Range | Performed | Pathologist | | | | | At | Signature | + + + + + + | Glucose, | 155 (H)Comment: Testing | 65 - 99 mg/dL | EXTERNAL | | | Fingerstick | performed at [facility];[address] | | LAB | | | [address];[place], [place] | | | | | | [address] | | | | + + + + + + + + | Specimen | + + | | + + + +---------+ + + | Performing | Address | City/State/Zipcode | Phone Number | | Organization | | | | + +---------+ + + | EXTERNAL LAB | | | | + +---------+ + + POC Glucose (08/25/2014 5:59 PM PDT) + + + + + + | Component | Value | Ref Range | Performed | Pathologist | | | | | At | Signature | + + + + + + | Glucose, | 139 (H)Comment: Testing | 65 - 99 mg/dL | EXTERNAL | | | Fingerstick | performed at [facility];[address] | | LAB | | | | [address];[place] | | | | | | [address] | | | | + + + + + + + + | Specimen | + + | | + + + +---------+ + + | Performing | Address | City/State/Zipcode | Phone Number | | Organization | | | | + +---------+ + + | EXTERNAL LAB | | | | + +---------+ + + POC Glucose (08/25/2014 11:59 AM PDT) + + + + + + | Component | Value | Ref Range | Performed | Pathologist | | | | | At | Signature | + + + + + + | Glucose, | 124 (H)Comment: Testing | 65 - 99 mg/dL | EXTERNAL | | | Fingerstick | performed at [facility];[address] | | LAB | | | | [address];[place], [place] | | | | | | [address] | | | | + + + + + + + + | Specimen | + + | | + + + +---------+ + + | Performing | Address | City/State/Zipcode | Phone Number | | Organization | | | | + +---------+ + + | EXTERNAL LAB | | | | + +---------+ + + CT Chest wo Contrast (08/25/2014 10:23 AM PDT) + + | Specimen | + + | | + + + + + | Impressions | Performed At | + + + | 1. Small left anterior pneumothorax measuring 14 mm in thickness. | | | 2. Right middle lobe atelectasis, probably accounting for the | | | density seen on lateral chest x-ray. 3. Small left pleural effusion | | | tracking to the oblique fissure. 4. Mild groundglass infiltrate in | | | right upper lobe, nonspecific. They relate to atypical edema, | | | inflammatory disease, or atypical infection. 5. Recent sternotomy | | | with presumed postoperative changes in the anterior mediastinum. 6. | | | Minimal left lower lobe scarring or atelectasis. Electronically | | | signed by Sam Garcia MD on 08/25/2014 11:14 AM | | + + + + + + | Narrative | Performed At | + + + | [facility] CHEST WO CONTRAST 08/25/2014 10:23 AM HISTORY: | | | Shortness of breath. Chest x-ray shows right lower lobe density. | | | Status post heart surgery one week ago. TECHNIQUE: 5 mm axial | | | sections were obtained through the chest without IV contrast. | | | FINDINGS: Compared to a chest x-ray the same date. There is mild | | | soft tissue stranding in the anterior mediastinum, consistent with | | | recent heart surgery. The sternotomy appears well opposed without | | | evidence of dehiscence. There is minimal air in the anterior | | | mediastinum, consistent with recent surgery. There is a small | | | pericardial effusion measuring 6 mm in thickness. A small left pleural | | | effusion is present. There is a small left anterior pneumothorax | | | measuring 14 mm in thickness on image 27. There is mild | | | groundglass infiltrate in the right upper lobe. There is mild | | | bibasilar atelectasis. There is atelectasis in the medial aspect of | | | the right middle lobe adjacent to the diaphragm probably accounts for | | | the density seen on lateral chest x-ray. | | + + + + + | Procedure Note | + + | Francesco Reyes - 11/21/2018 8:32 AM PDT [facility] CHEST WO | | CONTRAST08/25/2014 10:23 AM HISTORY:Shortness of breath. Chest x-ray shows right lower | | lobe density. Status post heart surgery one week ago. TECHNIQUE:5 mm axial sections were | | obtained through the chest without IV contrast. FINDINGS:Compared to a chest x-ray the | | same date. There is mild soft tissue stranding in the anterior mediastinum, consistent | | with recent heart surgery. The sternotomy appears well opposed without evidence of | | dehiscence. There is minimal air in the anterior mediastinum, consistent with recent | | surgery. There is a small pericardial effusion measuring 6 mm in thickness. A small left | | pleural effusion is present. There is a small left anterior pneumothorax measuring 14 | | mm in thickness on image 27. There is mild groundglass infiltrate in the right upper | | lobe. There is mild bibasilar atelectasis. There is atelectasis in the medial aspect of | | the right middle lobe adjacent to the diaphragm probably accounts for the density seen | | on lateral chest x-ray. IMPRESSION: 1. Small left anterior pneumothorax measuring 14 mm | | in thickness.2. Right middle lobe atelectasis, probably accounting for the density | | seen on lateral chest x-ray.3. Small left pleural effusion tracking to the oblique | | fissure.4. Mild groundglass infiltrate in right upper lobe, nonspecific. They relate to | | atypical edema, inflammatory disease, or atypical infection.5. Recent sternotomy with | | presumed postoperative changes in the anterior mediastinum.6. Minimal left lower lobe | | scarring or atelectasis. | | 11:14 AM | |density seen on lateral chest x-ray. | | | |IMPRESSION: | |1. Small left anterior pneumothorax measuring 14 mm in thickness. | |2. Right middle lobe atelectasis, probably accounting for the density seen on lateral ches t x-ray. | |3. Small left pleural effusion tracking to the oblique fissure. | |4. Mild groundglass infiltrate in right upper lobe, nonspecific. They relate to atypical e radha, inflammatory disease, or atypical infection. | |5. Recent sternotomy with presumed postoperative changes in the anterior mediastinum. | |6. Minimal left lower lobe scarring or atelectasis. | | | | | + + XR Chest 2 Vws (08/25/2014 7:02 AM PDT) + + | Specimen | + + | | + + + + + | Impressions | Performed At | + + + | 1. Minimal pleural effusions, best seen on the lateral view. 2. | | | Mild scarring or atelectasis in the left lung base. 3. Mild | | | cardiomegaly and prior sternotomy. | | + + + + + + | Narrative | Performed At | + + + | [facility] XR CHEST 2 VIEW FRONTAL AND LATERAL 08/25/2014 7:02 | | | AM HISTORY: Shortness of breath. TECHNIQUE: 2 views of the | | | chest. FINDINGS: Compared with 08/22/14. There is mild elevation | | | of the right diaphragm. Heart is mildly enlarged. Previous sternotomy. | | | No acute airspace infiltrates are identified. There is mild | | | atelectasis or scarring in the left lung base. Minimal pleural | | | effusions are seen on the lateral view including one tracking into | | | oblique fissure, probably on the right. | | + + + + + | Procedure Note | + + | Francesco Reyes Conversion - 11/21/2018 8:32 AM PDT [facility] CHEST 2 VIEW FRONTAL | | AND LATERAL08/25/2014 7:02 AM HISTORY:Shortness of breath. TECHNIQUE:2 views of the | | chest. FINDINGS:Compared with 08/22/14. There is mild elevation of the right diaphragm. | | Heart is mildly enlarged. Previous sternotomy. No acute airspace infiltrates are | | identified. There is mild atelectasis or scarring in the left lung base. Minimal pleural | | effusions are seen on the lateral view including one tracking into oblique fissure, | | probably on the right. IMPRESSION: 1. Minimal pleural effusions, best seen on the | | lateral view.2. Mild scarring or atelectasis in the left lung base.3. Mild | | cardiomegaly and prior sternotomy. Electronically signed by Sam Garcia MD on | | 08/25/2014 8:09 AM | |FINDINGS: | |Compared with 08/22/14. There is mild elevation of the right diaphragm. Heart is mildly enla rged. Previous sternotomy. No acute airspace infiltrates are identified. There is mild atele ctasis or scarring in the | |left lung base. Minimal pleural effusions are | | seen on the lateral view including one tracking into oblique fissure, probably on the righ t. | | | |IMPRESSION: | |1. Minimal pleural effusions, best seen on the lateral view. | |2. Mild scarring or atelectasis in the left lung base. | |3. Mild cardiomegaly and prior sternotomy. | | | | | + + POC Glucose (08/25/2014 6:42 AM PDT) + + + + + + | Component | Value | Ref Range | Performed | Pathologist | | | | | At | Signature | + + + + + + | Glucose, | 133 (H)Comment: Testing | 65 - 99 mg/dL | EXTERNAL | | | Fingerstick | performed at [facility];[address] | | LAB | | | | [address];[place] | | | | | | [address] | | | | + + + + + + + + | Specimen | + + | | + + + +---------+ + + | Performing | Address | City/State/Zipcode | Phone Number | | Organization | | | | + +---------+ + + | EXTERNAL LAB | | | | + +---------+ + + Basic Metabolic Panel (08/25/2014 3:40 AM PDT) + + + + + + | Component | Value | Ref Range | Performed | Pathologist | | | | | At | Signature | + + + + + + | Na | 134 (L)Comment: Testing | 135 - 143 | EXTERNAL | | | | performed at [facility], [address] | mmol/L | LAB | | | | [address], | | | | | | [place] [address] | | | | + + + + + + | K | 4.1Comment: Testing | 3.5 - 4.9 | EXTERNAL | | | | performed at [facility], [address] | mmol/L | LAB | | | | [address], | | | | | | [place] [address] | | | | + + + + + + | Cl | 94 (L)Comment: Testing | 99 - 109 mmol/L | EXTERNAL | | | | performed at [facility], [address] | | LAB | | | | [address], | | | | | | [place] [address] | | | | + + + + + + | CO2 | 36 (H)Comment: Testing | 23 - 32 mmol/L | EXTERNAL | | | | performed at [facility], [address] | | LAB | | | | [address], | | | | | | [place] [address] | | | | + + + + + + | Anion Gap | 8Comment: Testing | 5 - 20 mmol/L | EXTERNAL | | | | performed at [facility], [address] | | LAB | | | | [address], | | | | | | [place] [address] | | | | + + + + + + | Glucose, | 130 (H)Comment: Testing | 65 - 99 mg/dL | EXTERNAL | | | Fasting | performed at [facility], [address] | | LAB | | | | [address], | | | | | | [place] [address] | | | | + + + + + + | BUN | 16Comment: Testing | 8 - 25 mg/dL | EXTERNAL | | | | performed at [facility], [address] | | LAB | | | | [address], | | | | | | [place] [address] | | | | + + + + + + | Creatinine | 0.72Comment: Testing | 0.70 - 1.30 | EXTERNAL | | | | performed at [facility], [address] | mg/dL | LAB | | | | [address], | | | | | | [place] [address] | | | | + + + + + + | BUN/Creatin | 22Comment: Testing | | EXTERNAL | | | ine Ratio | performed at [facility], [address] | | LAB | | | | [address], | | | | | | [place] [address] | | | | + + + + + + | Calcium | 9.1Comment: Testing | 8.5 - 10.5 | EXTERNAL | | | | performed at [facility], [address] | mg/dL | LAB | | | | [address], | | | | | | [place] [address] | | | | + + + + + + | Estimated | >60Comment: GFR <60: | mL/min/1.73m2 | EXTERNAL | | | GFR | CHRONIC KIDNEY DISEASE, | | LAB | | | | IF FOUND OVER A 3 MONTH | | | | | | PERIOD.GFR <15: KIDNEY | | | | | | FAILURE.FOR | | | | | | AMERICANS, MULTIPLY THE | | | | | | CALCULATED GFR BY | | | | | | 1.210.Testing performed | | | | | | at [facility], [address] | | | | | [address], | | | | | | [place] [address] | | | | + + + + + + + + | Specimen | + + | Blood specimen | | (specimen) | + + + +---------+ + + | Performing | Address | City/State/Zipcode | Phone Number | | Organization | | | | + +---------+ + + | EXTERNAL LAB | | | | + +---------+ + + POC Glucose (08/24/2014 9:23 PM PDT) + + + + + + | Component | Value | Ref Range | Performed | Pathologist | | | | | At | Signature | + + + + + + | Glucose, | 189 (H)Comment: Testing | 65 - 99 mg/dL | EXTERNAL | | | Fingerstick | performed at [facility];[address] | | LAB | | | | [address];[place] | | | | | | [address] | | | | + + + + + + + + | Specimen | + + | | + + + +---------+ + + | Performing | Address | City/State/Zipcode | Phone Number | | Organization | | | | + +---------+ + + | EXTERNAL LAB | | | | + +---------+ + + POC Glucose (08/24/2014 4:02 PM PDT) + + + + + + | Component | Value | Ref Range | Performed | Pathologist | | | | | At | Signature | + + + + + + | Glucose, | 162 (H)Comment: Testing | 65 - 99 mg/dL | EXTERNAL | | | Fingerstick | performed at [facility];[address] | | LAB | | | [address];[place] | | | | | | [address] | | | | + + + + + + + + | Specimen | + + | | + + + +---------+ + + | Performing | Address | City/State/Zipcode | Phone Number | | Organization | | | | + +---------+ + + | EXTERNAL LAB | | | | + +---------+ + + POC Glucose (08/24/2014 11:27 AM PDT) + + + + + + | Component | Value | Ref Range | Performed | Pathologist | | | | | At | Signature | + + + + + + | Glucose, | 178 (H)Comment: Testing | 65 - 99 mg/dL | EXTERNAL | | | Fingerstick | performed at [facility];[address] | | LAB | | | [address];[place] | | | | | | [address] | | | | + + + + + + + + | Specimen | + + | | + + + +---------+ + + | Performing | Address | City/State/Zipcode | Phone Number | | Organization | | | | + +---------+ + + | EXTERNAL LAB | | | | + +---------+ + + POC Glucose (08/24/2014 5:20 AM PDT) + + + + + + | Component | Value | Ref Range | Performed | Pathologist | | | | | At | Signature | + + + + + + | Glucose, | 97Comment: Testing | 65 - 99 mg/dL | EXTERNAL | | | Fingerstick | performed at [facility];[address] | | LAB | | | | [address];[place] | | | | | | [address] | | | | + + + + + + + + | Specimen | + + | | + + + +---------+ + + | Performing | Address | City/State/Zipcode | Phone Number | | Organization | | | | + +---------+ + + | EXTERNAL LAB | | | | + +---------+ + + External Lab: RON (08/24/2014 4:45 AM PDT) + + + + + + | Component | Value | Ref Range | Performed | Pathologist | | | | | At | Signature | + + + + + + | WBC | 10.65Comment: Testing | 3.80 - 11.00 | EXTERNAL | | | | performed at [facility], [address] | K/uL | LAB | | | | [address], | | | | | | [place] [address] | | | | + + + + + + | Red Blood | 2.86 (L)Comment: Testing | 4.20 - 5.70 | EXTERNAL | | | Cells | performed at [facility], [address] | [address]L | LAB | | | Counted | [address], | | | | | | [place] [address] | | | | + + + + + + | Hemoglobin | 9.9 (L)Comment: Testing | 13.2 - 17.0 | EXTERNAL | | | | performed at [facility], [address] | g/dL | LAB | | | | [address], | | | | | | [place] [address] | | | | + + + + + + | Hematocrit, | 29.3 (L)Comment: Testing | 39.0 - 50.0 % | EXTERNAL | | | POC | performed at [facility], [address] | | LAB | | | | [address], | | | | | | [place] [address] | | | | + + + + + + | MCV | 102.3 (H)Comment: | 80.0 - 100.0 fl | EXTERNAL | | | | Testing performed at | | LAB | | | | [facility], [address] | | | | | | [place] | | | | | | [address] | | | | + + + + + + | MCH | 34.7 (H)Comment: Testing | 27.0 - 34.0 pg | EXTERNAL | | | | performed at [facility], [address] | | LAB | | | | [address], | | | | | | [place] [address] | | | | + + + + + + | MCHC | 33.9Comment: Testing | 32.0 - 35.5 | EXTERNAL | | | | performed at [facility], [address] | g/dL | LAB | | | | [address], | | | | | | [place] [address] | | | | + + + + + + | RDW-CV | 45.9Comment: Testing | 37 - 53 fl | EXTERNAL | | | | performed at [facility], [address] | | LAB | | | | [address], | | | | | | [place] [address] | | | | + + + + + + | Platelet | 189Comment: Testing | 150 - 400 K/uL | EXTERNAL | | | Count | performed at [facility], [address] | | LAB | | | Plasma | [address], | | | | | | [place] [address] | | | | + + + + + + | MPV | 9.1Comment: Testing | fl | EXTERNAL | | | | performed at [facility], [address] | | LAB | | | | [address], | | | | | | [place] [address] | | | | + + + + + + | Differentia | AUTOMATEDComment: | | EXTERNAL | | | l Type | Testing performed at | | LAB | | | | [facility], [address] | | | | | | [place] | | | | | | [address] | | | | + + + + + + | % Segmented | 73.60Comment: Testing | % | EXTERNAL | | | | performed at [facility], [address] | | LAB | | | Neutrophils | [address], | | | | | | [place] [address] | | | | + + + + + + | % | 9.97Comment: Testing | % | EXTERNAL | | | Lymphocytes | performed at [facility], [address] | | LAB | | | | [address], | | | | | | [place] [address] | | | | + + + + + + | % Monocytes | 13.34Comment: Testing | % | EXTERNAL | | | | performed at [facility], [address] | | LAB | | | | [address], | | | | | | [place] [address] | | | | + + + + + + | % | 2.69Comment: Testing | % | EXTERNAL | | | Eosinophils | performed at [facility], [address] | | LAB | | | | [address], | | | | | | [place] [address] | | | | + + + + + + | % Basophils | 0.40Comment: Testing | % | EXTERNAL | | | | performed at [facility], [address] | | LAB | | | | [address], | | | | | | [place] [address] | | | | + + + + + + | Absolute | 7.84 (H)Comment: Testing | 1.90 - 7.40 | EXTERNAL | | | Segmented | performed at [facility], [address] | [address] | LAB | | | Neutrophils | [address], | | | | | | [place] [address] | | | | + + + + + + | Absolute | 1.06Comment: Testing | 1.00 - 3.90 | EXTERNAL | | | Lymphocytes | performed at [facility], [address] | K/uL | LAB | | | | [address], | | | | | | [place] [address] | | | | + + + + + + | Absolute | 1.42 (H)Comment: Testing | 0.00 - 0.80 | EXTERNAL | | | Monocytes | performed at [facility], [address] | [address] | LAB | | | | [address], | | | | | | [place] [address] | | | | + + + + + + | Absolute | 0.29Comment: Testing | 0.00 - 0.50 | EXTERNAL | | | Eosinophils | performed at [facility], [address] | K/uL | LAB | | | | [address], | | | | | | [place] [address] | | | | + + + + + + | Absolute | 0.04Comment: Testing | 0.00 - 0.10 | EXTERNAL | | | Basophils | performed at [facility], [address] | K/uL | LAB | | | | [address], | | | | | | [place] [address] | | | | + + + + + + + + | Specimen | + + | Blood specimen | | (specimen) | + + + +---------+ + + | Performing | Address | City/State/Zipcode | Phone Number | | Organization | | | | + +---------+ + + | EXTERNAL LAB | | | | + +---------+ + + Basic Metabolic Panel (08/24/2014 4:45 AM PDT) + + + + + + | Component | Value | Ref Range | Performed | Pathologist | | | | | At | Signature | + + + + + + | Na | 132 (L)Comment: Testing | 135 - 143 | EXTERNAL | | | | performed at [facility], [address] | mmol/L | LAB | | | | [address], | | | | | | [place] [address] | | | | + + + + + + | K | 4.3Comment: Testing | 3.5 - 4.9 | EXTERNAL | | | | performed at [facility], [address] | mmol/L | LAB | | | | [address], | | | | | | [place] [address] | | | | + + + + + + | Cl | 93 (L)Comment: Testing | 99 - 109 mmol/L | EXTERNAL | | | | performed at [facility], [address] | | LAB | | | | [address], | | | | | | [place] [address] | | | | + + + + + + | CO2 | 33 (H)Comment: Testing | 23 - 32 mmol/L | EXTERNAL | | | | performed at [facility], [address] | | LAB | | | | [address], | | | | | | [place] [address] | | | | + + + + + + | Anion Gap | 10Comment: Testing | 5 - 20 mmol/L | EXTERNAL | | | | performed at [facility], [address] | | LAB | | | | [address], | | | | | | [place] [address] | | | | + + + + + + | Glucose, | 91Comment: Testing | 65 - 99 mg/dL | EXTERNAL | | | Fasting | performed at [facility], [address] | | LAB | | | | [address], | | | | | | [place] [address] | | | | + + + + + + | BUN | 19Comment: Testing | 8 - 25 mg/dL | EXTERNAL | | | | performed at [facility], [address] | | LAB | | | | [address], | | | | | | [place] [address] | | | | + + + + + + | Creatinine | 0.72Comment: Testing | 0.70 - 1.30 | EXTERNAL | | | | performed at [facility], [address] | mg/dL | LAB | | | | [address], | | | | | | [place] [address] | | | | + + + + + + | BUN/Creatin | 26Comment: Testing | | EXTERNAL | | | ine Ratio | performed at [facility], [address] | | LAB | | | | [address], | | | | | | [place] [address] | | | | + + + + + + | Calcium | 8.9Comment: Testing | 8.5 - 10.5 | EXTERNAL | | | | performed at [facility], [address] | mg/dL | LAB | | | | [address], | | | | | | [place] [address] | | | | + + + + + + | Estimated | >60Comment: GFR <60: | mL/min/1.73m2 | EXTERNAL | | | GFR | CHRONIC KIDNEY DISEASE, | | LAB | | | | IF FOUND OVER A 3 MONTH | | | | | | PERIOD.GFR <15: KIDNEY | | | | | | FAILURE.FOR | | | | | | AMERICANS, MULTIPLY THE | | | | | | CALCULATED GFR BY | | | | | | 1.210.Testing performed | | | | | | at [facility], [address] | | | | | | [address], | | | | | | [place] [address] | | | | + + + + + + + + | Specimen | + + | Blood specimen | | (specimen) | + + + +---------+ + + | Performing | Address | City/State/Zipcode | Phone Number | | Organization | | | | + +---------+ + + | EXTERNAL LAB | | | | + +---------+ + + POC Glucose (08/23/2014 9:11 PM PDT) + + + + + + | Component | Value | Ref Range | Performed | Pathologist | | | | | At | Signature | + + + + + + | Glucose, | 88Comment: Testing | 65 - 99 mg/dL | EXTERNAL | | | Fingerstick | performed at [facility];[address] | | LAB | | | | [address];[place], [place] | | | | | | [address] | | | | + + + + + + + + | Specimen | + + | | + + + +---------+ + + | Performing | Address | City/State/Zipcode | Phone Number | | Organization | | | | + +---------+ + + | EXTERNAL LAB | | | | + +---------+ + + POC Glucose (08/23/2014 4:42 PM PDT) + + + + + + | Component | Value | Ref Range | Performed | Pathologist | | | | | At | Signature | + + + + + + | Glucose, | 134 (H)Comment: Testing | 65 - 99 mg/dL | EXTERNAL | | | Fingerstick | performed at [facility];[address] | | LAB | | | | [address];[place] | | | | | | [address] | | | | + + + + + + + + | Specimen | + + | | + + + +---------+ + + | Performing | Address | City/State/Zipcode | Phone Number | | Organization | | | | + +---------+ + + | EXTERNAL LAB | | | | + +---------+ + + POC Glucose (08/23/2014 11:10 AM PDT) + + + + + + | Component | Value | Ref Range | Performed | Pathologist | | | | | At | Signature | + + + + + + | Glucose, | 139 (H)Comment: Testing | 65 - 99 mg/dL | EXTERNAL | | | Fingerstick | performed at [facility];[address] | | LAB | | | | [address] [facility];[place], [place] | | | | | | [address] | | | | + + + + + + + + | Specimen | + + | | + + + +---------+ + + | Performing | Address | City/State/Zipcode | Phone Number | | Organization | | | | + +---------+ + + | EXTERNAL LAB | | | | + +---------+ + + POC Glucose (08/23/2014 5:13 AM PDT) + + + + + + | Component | Value | Ref Range | Performed | Pathologist | | | | | At | Signature | + + + + + + | Glucose, | 107 (H)Comment: Testing | 65 - 99 mg/dL | EXTERNAL | | | Fingerstick | performed at [facility];[address] | | LAB | | | | [address];[place] | | | | | | [address] | | | | + + + + + + + + | Specimen | + + | | + + + +---------+ + + | Performing | Address | City/State/Zipcode | Phone Number | | Organization | | | | + +---------+ + + | EXTERNAL LAB | | | | + +---------+ + + External Lab: RON (08/23/2014 4:44 AM PDT) + + + + + + | Component | Value | Ref Range | Performed | Pathologist | | | | | At | Signature | + + + + + + | WBC | 9.74Comment: Testing | 3.80 - 11.00 | EXTERNAL | | | | performed at [facility], [address] | K/uL | LAB | | | | [address], | | | | | | [place] [address] | | | | + + + + + + | Red Blood | 2.81 (L)Comment: Testing | 4.20 - 5.70 | EXTERNAL | | | Cells | performed at [facility], [address] | M/uL | LAB | | | Counted | [address], | | | | | | [place] [address] | | | | + + + + + + | Hemoglobin | 9.6 (L)Comment: Testing | 13.2 - 17.0 | EXTERNAL | | | | performed at [facility], [address] | g/dL | LAB | | | | [address], | | | | | | [place] [address] | | | | + + + + + + | Hematocrit, | 28.4 (L)Comment: Testing | 39.0 - 50.0 % | EXTERNAL | | | POC | performed at [facility], [address] | | LAB | | | | [address], | | | | | | [place] [address] | | | | + + + + + + | MCV | 101.0 (H)Comment: | 80.0 - 100.0 fl | EXTERNAL | | | | Testing performed at | | LAB | | | | [facility], [address] | | | | | | [place], [place] | | | | | | [address] | | | | + + + + + + | MCH | 34.1 (H)Comment: Testing | 27.0 - 34.0 pg | EXTERNAL | | | | performed at [facility], [address] | | LAB | | | | [address], | | | | | | [place] [address] | | | | + + + + + + | MCHC | 33.8Comment: Testing | 32.0 - 35.5 | EXTERNAL | | | | performed at [facility], [address] | g/dL | LAB | | | | [address], | | | | | | [place] [address] | | | | + + + + + + | RDW-CV | 45.9Comment: Testing | 37 - 53 fl | EXTERNAL | | | | performed at [facility], [address] | | LAB | | | | [address], | | | | | | [place] [address] | | | | + + + + + + | Platelet | 155Comment: Testing | 150 - 400 K/uL | EXTERNAL | | | Count | performed at [facility], [address] | | LAB | | | Plasma | [address], | | | | | | [place] [address] | | | | + + + + + + | MPV | 9.2Comment: Testing | fl | EXTERNAL | | | | performed at [facility], [address] | | LAB | | | | [address], | | | | | | [place] [address] | | | | + + + + + + | Differentia | AUTOMATEDComment: | | EXTERNAL | | | l Type | Testing performed at | | LAB | | | | [facility], [address] | | | | | | [place] | | | | | | [address] | | | | + + + + + + | % Segmented | 73.91Comment: Testing | % | EXTERNAL | | | | performed at [facility], [address] | | LAB | | | Neutrophils | [address], | | | | | | [place] [address] | | | | + + + + + + | % | 11.53Comment: Testing | % | EXTERNAL | | | Lymphocytes | performed at [facility], [address] | | LAB | | | | [address], | | | | | | [place] [address] | | | | + + + + + + | % Monocytes | 10.80Comment: Testing | % | EXTERNAL | | | | performed at [facility], [address] | | LAB | | | | [address], | | | | | | [place] [address] | | | | + + + + + + | % | 3.48Comment: Testing | % | EXTERNAL | | | Eosinophils | performed at [facility], [address] | | LAB | | | | [address], | | | | | | [place] [address] | | | | + + + + + + | % Basophils | 0.28Comment: Testing | % | EXTERNAL | | | | performed at [facility], [address] | | LAB | | | | [address], | | | | | | [place] [address] | | | | + + + + + + | Absolute | 7.20Comment: Testing | 1.90 - 7.40 | EXTERNAL | | | Segmented | performed at [facility], [address] | K/uL | LAB | | | Neutrophils | [address], | | | | | | [place] [address] | | | | + + + + + + | Absolute | 1.12Comment: Testing | 1.00 - 3.90 | EXTERNAL | | | Lymphocytes | performed at [facility], [address] | K/uL | LAB | | | | [address], | | | | | | [place] [address] | | | | + + + + + + | Absolute | 1.05 (H)Comment: Testing | 0.00 - 0.80 | EXTERNAL | | | Monocytes | performed at [facility], [address] | K/uL | LAB | | | | [address], | | | | | | [place] [address] | | | | + + + + + + | Absolute | 0.34Comment: Testing | 0.00 - 0.50 | EXTERNAL | | | Eosinophils | performed at [facility], [address] | K/uL | LAB | | | | [address], | | | | | | [place] [address] | | | | + + + + + + | Absolute | 0.03Comment: Testing | 0.00 - 0.10 | EXTERNAL | | | Basophils | performed at [facility], [address] | K/uL | LAB | | | | [address], | | | | | | [place] [address] | | | | + + + + + + + + | Specimen | + + | Blood specimen | | (specimen) | + + + +---------+ + + | Performing | Address | City/State/Zipcode | Phone Number | | Organization | | | | + +---------+ + + | EXTERNAL LAB | | | | + +---------+ + + Basic Metabolic Panel (08/23/2014 4:44 AM PDT) + + + + + + | Component | Value | Ref Range | Performed | Pathologist | | | | | At | Signature | + + + + + + | Na | 133 (L)Comment: Testing | 135 - 143 | EXTERNAL | | | | performed at [facility], [address] | mmol/L | LAB | | | | [address], | | | | | | [place] [address] | | | | + + + + + + | K | 4.5Comment: Testing | 3.5 - 4.9 | EXTERNAL | | | | performed at [facility], [address] | mmol/L | LAB | | | | [address], | | | | | | [place] [address] | | | | + + + + + + | Cl | 95 (L)Comment: Testing | 99 - 109 mmol/L | EXTERNAL | | | | performed at [facility], [address] | | LAB | | | | [address], | | | | | | [place] [address] | | | | + + + + + + | CO2 | 34 (H)Comment: Testing | 23 - 32 mmol/L | EXTERNAL | | | | performed at [facility], [address] | | LAB | | | | [address], | | | | | | [place] [address] | | | | + + + + + + | Anion Gap | 9Comment: Testing | 5 - 20 mmol/L | EXTERNAL | | | | performed at [facility], [address] | | LAB | | | | [address], | | | | | | [place] [address] | | | | + + + + + + | Glucose, | 108 (H)Comment: Testing | 65 - 99 mg/dL | EXTERNAL | | | Fasting | performed at [facility], [address] | | LAB | | | | [address], | | | | | | [place] [address] | | | | + + + + + + | BUN | 20Comment: Testing | 8 - 25 mg/dL | EXTERNAL | | | | performed at [facility], [address] | | LAB | | | | [address], | | | | | | [place] [address] | | | | + + + + + + | Creatinine | 0.77Comment: Testing | 0.70 - 1.30 | EXTERNAL | | | | performed at [facility], [address] | mg/dL | LAB | | | | [address], | | | | | | [place] [address] | | | | + + + + + + | BUN/Creatin | 26Comment: Testing | | EXTERNAL | | | ine Ratio | performed at [facility], [address] | | LAB | | | | [address], | | | | | | [place] [address] | | | | + + + + + + | Calcium | 8.9Comment: Testing | 8.5 - 10.5 | EXTERNAL | | | | performed at [facility], [address] | mg/dL | LAB | | | | [facility], | | | | | | [place] [address] | | | | + + + + + + | Estimated | >60Comment: GFR <60: | mL/min/1.73m2 | EXTERNAL | | | GFR | CHRONIC KIDNEY DISEASE, | | LAB | | | | IF FOUND OVER A 3 MONTH | | | | | | PERIOD.GFR <15: KIDNEY | | | | | | FAILURE.FOR | | | | | | AMERICANS, MULTIPLY THE | | | | | | CALCULATED GFR BY | | | | | | 1.210.Testing performed | | | | | | at [facility], [address] | | | | | | [facility], | | | | | | [place] [address] | | | | + + + + + + + + | Specimen | + + | Blood specimen | | (specimen) | + + + +---------+ + + | Performing | Address | City/State/Zipcode | Phone Number | | Organization | | | | + +---------+ + + | EXTERNAL LAB | | | | + +---------+ + + POC Glucose (08/22/2014 9:17 PM PDT) + + + + + + | Component | Value | Ref Range | Performed | Pathologist | | | | | At | Signature | + + + + + + | Glucose, | 169 (H)Comment: Testing | 65 - 99 mg/dL | EXTERNAL | | | Fingerstick | performed at [facility];[address] | | LAB | | | | [address];[place], [place] | | | | | | [address] | | | | + + + + + + + + | Specimen | + + | | + + + +---------+ + + | Performing | Address | City/State/Zipcode | Phone Number | | Organization | | | | + +---------+ + + | EXTERNAL LAB | | | | + +---------+ + + POC Glucose (08/22/2014 3:48 PM PDT) + + + + + + | Component | Value | Ref Range | Performed | Pathologist | | | | | At | Signature | + + + + + + | Glucose, | 125 (H)Comment: Testing | 65 - 99 mg/dL | EXTERNAL | | | Fingerstick | performed at [facility];[address] | | LAB | | | [address];[place] | | | | | | [address] | | | | + + + + + + + + | Specimen | + + | | + + + +---------+ + + | Performing | Address | City/State/Zipcode | Phone Number | | Organization | | | | + +---------+ + + | EXTERNAL LAB | | | | + +---------+ + + POC Glucose (08/22/2014 11:45 AM PDT) + + + + + + | Component | Value | Ref Range | Performed | Pathologist | | | | | At | Signature | + + + + + + | Glucose, | 137 (H)Comment: Testing | 65 - 99 mg/dL | EXTERNAL | | | Fingerstick | performed at [facility];[address] | | LAB | | | [address];[place], [place] | | | | | | [address] | | | | + + + + + + + + | Specimen | + + | | + + + +---------+ + + | Performing | Address | City/State/Zipcode | Phone Number | | Organization | | | | + +---------+ + + | EXTERNAL LAB | | | | + +---------+ + + XR Chest 2 Vws (08/22/2014 8:03 AM PDT) + + | Specimen | + + | | + + + + + | Impressions | Performed At | + + + | 1. Developing pulmonary venous hypertension, without significant | | | interstitial edema. 2. Unchanged other findings including a | | | left-sided chest tube, without pneumothorax. | | + + + + + + | Narrative | Performed At | + + + | [facility] XR CHEST 2 VIEW FRONTAL AND LATERAL 08/22/2014 8:03 | | | AM HISTORY: Shortness of breath. TECHNIQUE: Frontal and | | | lateral chest radiograph 08/22/14. COMPARISON: Chest radiographs, | | | most recent 1614. FINDINGS: The cardiac silhouette remains | | | moderately enlarged. Intact median sternotomy wires are found. | | | Pulmonary vascular prominence is noted with cephalization of blood | | | flow suggesting pulmonary venous hypertension. Small left pleural | | | effusion is noted. A left basilar chest tube is in place. | | + + + + + | Procedure Note | + + | Eric, Rad Conversion - 11/21/2018 8:32 AM [facility] CHEST 2 VIEW FRONTAL | | AND LATERAL08/22/2014 8:03 AM HISTORY:Shortness of breath. TECHNIQUE:Frontal and lateral | | chest radiograph 08/22/14. COMPARISON:Chest radiographs, most recent 1614. FINDINGS:The | | cardiac silhouette remains moderately enlarged. Intact median sternotomy wires are | | found. Pulmonary vascular prominence is noted with cephalization of blood flow | | suggesting pulmonary venous hypertension. Small left pleural effusion is noted. A left | | basilar chest tube is in place. IMPRESSION: 1. Developing pulmonary venous | | hypertension, without significant interstitial edema. 2. Unchanged other findings | | including a left-sided chest tube, without pneumothorax. | |COMPARISON: | |Chest radiographs, most recent 1614. | | | |FINDINGS: | |The cardiac silhouette remains moderately enlarged. Intact median sternotomy wires are foun d. Pulmonary vascular prominence is noted with cephalization of blood flow suggesting pulmon cortez venous hypertension. | |Small left pleural effusion is noted. A left | |basilar chest tube is in place. | | | |IMPRESSION: | |1. Developing pulmonary venous hypertension, without significant interstitial edema. | | | |2. Unchanged other findings including a left-sided chest tube, without pneumothorax. | | | | | + + POC Glucose (08/22/2014 5:28 AM PDT) + + + + + + | Component | Value | Ref Range | Performed | Pathologist | | | | | At | Signature | + + + + + + | Glucose, | 150 (H)Comment: Testing | 65 - 99 mg/dL | EXTERNAL | | | Fingerstick | performed at [facility];[id number] | [address] | | | [address];[place] | | | | | | [address] | | | | + + + + + + + + | Specimen | + + | | + + + +---------+ + + | Performing | Address | City/State/Zipcode | Phone Number | | Organization | | | | + +---------+ + + | EXTERNAL LAB | | | | + +---------+ + + External Lab: [facility] (08/22/2014 4:16 AM PDT) + + + + + + | Component | Value | Ref Range | Performed | Pathologist | | | | | At | Signature | + + + + + + | WBC | 10.21Comment: Testing | 3.80 - 11.00 | EXTERNAL | | | | performed at [facility], [address] | [address] | LAB | | | | [address], | | | | | | [place] [id number] | | | | + + + + + + | Red Blood | 2.81 (L)Comment: Testing | 4.20 - 5.70 | EXTERNAL | | | Cells | performed at [facility], [address] | [address] | LAB | | | Counted | [address], | | | | | | [place] [address] | | | | + + + + + + | Hemoglobin | 9.6 (L)Comment: Testing | 13.2 - 17.0 | EXTERNAL | | | | performed at [facility], [address] | g/dL | LAB | | | | [address], | | | | | | [place] [address] | | | | + + + + + + | Hematocrit, | 28.8 (L)Comment: Testing | 39.0 - 50.0 % | EXTERNAL | | | POC | performed at [facility], [address] | | LAB | | | | [address], | | | | | | [place] [address] | | | | + + + + + + | MCV | 102.7 (H)Comment: | 80.0 - 100.0 fl | EXTERNAL | | | | Testing performed at | | LAB | | | | [facility], [address] [facility] | | | | | | [place] | | | | | | [address] | | | | + + + + + + | MCH | 34.2 (H)Comment: Testing | 27.0 - 34.0 pg | EXTERNAL | | | | performed at [facility], [address] | | LAB | | | | [address], | | | | | | [place] [address] | | | | + + + + + + | MCHC | 33.3Comment: Testing | 32.0 - 35.5 | EXTERNAL | | | | performed at [facility], [address] | g/dL | LAB | | | | [address], | | | | | | [place] [address] | | | | + + + + + + | RDW-CV | 45.5Comment: Testing | 37 - 53 fl | EXTERNAL | | | | performed at [facility], [address] | | LAB | | | | [address], | | | | | | [place] [address] | | | | + + + + + + | Platelet | 115 (L)Comment: Testing | 150 - 400 K/uL | EXTERNAL | | | Count | performed at [facility], [address] | | LAB | | | Plasma | [address], | | | | | | [place] [address] | | | | + + + + + + | MPV | 9.4Comment: Testing | fl | EXTERNAL | | | | performed at [facility], [address] | | LAB | | | | [address], | | | | | | [place] [address] | | | | + + + + + + | Differentia | AUTOMATEDComment: | | EXTERNAL | | | l Type | Testing performed at | | LAB | | | | [facility], [address] | | | | | | [place] | | | | | | [address] | | | | + + + + + + | % Segmented | 81.58Comment: Testing | % | EXTERNAL | | | | performed at [facility], [address] | | LAB | | | Neutrophils | [address], | | | | | | [place] [address] | | | | + + + + + + | % | 6.95Comment: Testing | % | EXTERNAL | | | Lymphocytes | performed at [facility], [address] | | LAB | | | | [address], | | | | | | [place] [address] | | | | + + + + + + | % Monocytes | 7.80Comment: Testing | % | EXTERNAL | | | | performed at [facility], [address] | | LAB | | | | [address], | | | | | | [place] [address] | | | | + + + + + + | % | 3.49Comment: Testing | % | EXTERNAL | | | Eosinophils | performed at [facility], [address] | | LAB | | | | [address], | | | | | | [place] [address] | | | | + + + + + + | % Basophils | 0.18Comment: Testing | % | EXTERNAL | | | | performed at [facility], [address] | | LAB | | | | [address], | | | | | | [place] [address] | | | | + + + + + + | Absolute | 8.33 (H)Comment: Testing | 1.90 - 7.40 | EXTERNAL | | | Segmented | performed at [facility], [address] | K/uL | LAB | | | Neutrophils | [address], | | | | | | [place] [address] | | | | + + + + + + | Absolute | 0.71 (L)Comment: Testing | 1.00 - 3.90 | EXTERNAL | | | Lymphocytes | performed at [facility], [address] | K/uL | LAB | | | | [address], | | | | | | [place] [address] | | | | + + + + + + | Absolute | 0.80Comment: Testing | 0.00 - 0.80 | EXTERNAL | | | Monocytes | performed at [facility], [address] | K/uL | LAB | | | | [address], | | | | | | [place] [address] | | | | + + + + + + | Absolute | 0.36Comment: Testing | 0.00 - 0.50 | EXTERNAL | | | Eosinophils | performed at [facility], [address] | K/uL | LAB | | | | [address], | | | | | | [place] [address] | | | | + + + + + + | Absolute | 0.02Comment: Testing | 0.00 - 0.10 | EXTERNAL | | | Basophils | performed at [facility], [address] | K/uL | LAB | | | | [address], | | | | | | [place] [address] | | | | + + + + + + + + | Specimen | + + | Blood specimen | | (specimen) | + + + +---------+ + + | Performing | Address | City/State/Zipcode | Phone Number | | Organization | | | | + +---------+ + + | EXTERNAL LAB | | | | + +---------+ + + Basic Metabolic Panel (08/22/2014 4:16 AM PDT) + + + + + + | Component | Value | Ref Range | Performed | Pathologist | | | | | At | Signature | + + + + + + | Na | 131 (L)Comment: Testing | 135 - 143 | EXTERNAL | | | | performed at [facility], [address] | mmol/L | LAB | | | | [address], | | | | | | [place] [address] | | | | + + + + + + | K | 4.6Comment: Testing | 3.5 - 4.9 | EXTERNAL | | | | performed at [facility], [address] | mmol/L | LAB | | | | [address], | | | | | | [place] [address] | | | | + + + + + + | Cl | 98 (L)Comment: Testing | 99 - 109 mmol/L | EXTERNAL | | | | performed at [facility], [address] | | LAB | | | | [address], | | | | | | [place] [address] | | | | + + + + + + | CO2 | 29Comment: Testing | 23 - 32 mmol/L | EXTERNAL | | | | performed at [facility], [address] | | LAB | | | | [address], | | | | | | [place] [address] | | | | + + + + + + | Anion Gap | 9Comment: Testing | 5 - 20 mmol/L | EXTERNAL | | | | performed at [facility], [address] | | LAB | | | | [address], | | | | | | [place] [address] | | | | + + + + + + | Glucose, | 144 (H)Comment: Testing | 65 - 99 mg/dL | EXTERNAL | | | Fasting | performed at [facility], [address] | | LAB | | | | [address], | | | | | | [place] [address] | | | | + + + + + + | BUN | 18Comment: Testing | 8 - 25 mg/dL | EXTERNAL | | | | performed at [facility], [address] | | LAB | | | | [address], | | | | | | [place] [address] | | | | + + + + + + | Creatinine | 0.77Comment: Testing | 0.70 - 1.30 | EXTERNAL | | | | performed at [facility], [address] | mg/dL | LAB | | | | [address], | | | | | | [place] [address] | | | | + + + + + + | BUN/Creatin | 23Comment: Testing | | EXTERNAL | | | ine Ratio | performed at [facility], [address] | | LAB | | | | [address], | | | | | | [place] [address] | | | | + + + + + + | Calcium | 8.7Comment: Testing | 8.5 - 10.5 | EXTERNAL | | | | performed at [facility], [address] | mg/dL | LAB | | | | [address], | | | | | | [place] [address] | | | | + + + + + + | Estimated | >60Comment: GFR <60: | mL/min/1.73m2 | EXTERNAL | | | GFR | CHRONIC KIDNEY DISEASE, | | LAB | | | | IF FOUND OVER A 3 MONTH | | | | | | PERIOD.GFR <15: KIDNEY | | | | | | FAILURE.FOR | | | | | | AMERICANS, MULTIPLY THE | | | | | | CALCULATED GFR BY | | | | | | 1.210.Testing performed | | | | | | at [facility], [address] | | | | | | [address], | | | | | | [place] [address] | | | | + + + + + + + + | Specimen | + + | Blood specimen | | (specimen) | + + + +---------+ + + | Performing | Address | City/State/Zipcode | Phone Number | | Organization | | | | + +---------+ + + | EXTERNAL LAB | | | | + +---------+ + + POC Glucose (08/21/2014 9:38 PM PDT) + + + + + + | Component | Value | Ref Range | Performed | Pathologist | | | | | At | Signature | + + + + + + | Glucose, | 126 (H)Comment: Testing | 65 - 99 mg/dL | EXTERNAL | | | Fingerstick | performed at [facility];[address] | | LAB | | | | [address];[place], [place] | | | | | | [address] | | | | + + + + + + + + | Specimen | + + | | + + + +---------+ + + | Performing | Address | City/State/Zipcode | Phone Number | | Organization | | | | + +---------+ + + | EXTERNAL LAB | | | | + +---------+ + + POC Glucose (08/21/2014 4:29 PM PDT) + + + + + + | Component | Value | Ref Range | Performed | Pathologist | | | | | At | Signature | + + + + + + | Glucose, | 129 (H)Comment: Testing | 65 - 99 mg/dL | EXTERNAL | | | Fingerstick | performed at [facility];[address] | | LAB | | | | [address];[place] | | | | | | [address] | | | | + + + + + + + + | Specimen | + + | | + + + +---------+ + + | Performing | Address | City/State/Zipcode | Phone Number | | Organization | | | | + +---------+ + + | EXTERNAL LAB | | | | + +---------+ + + POC Glucose (08/21/2014 2:23 PM PDT) + + + + + + | Component | Value | Ref Range | Performed | Pathologist | | | | | At | Signature | + + + + + + | Glucose, | 122 (H)Comment: Testing | 65 - 99 mg/dL | EXTERNAL | | | Fingerstick | performed at [facility];[address] | | LAB | | | | [address];[place] | | | | | | [address] | | | | + + + + + + + + | Specimen | + + | | + + + +---------+ + + | Performing | Address | City/State/Zipcode | Phone Number | | Organization | | | | + +---------+ + + | EXTERNAL LAB | | | | + +---------+ + + POC Glucose (08/21/2014 12:11 PM PDT) + + + + + + | Component | Value | Ref Range | Performed | Pathologist | | | | | At | Signature | + + + + + + | Glucose, | 121 (H)Comment: Testing | 65 - 99 mg/dL | EXTERNAL | | | Fingerstick | performed at [facility];[address] | | LAB | | | [address];[place], [place] | | | | | | [address] | | | | + + + + + + + + | Specimen | + + | | + + + +---------+ + + | Performing | Address | City/State/Zipcode | Phone Number | | Organization | | | | + +---------+ + + | EXTERNAL LAB | | | | + +---------+ + + POC Glucose (08/21/2014 11:08 AM PDT) + + + + + + | Component | Value | Ref Range | Performed | Pathologist | | | | | At | Signature | + + + + + + | Glucose, | 126 (H)Comment: Testing | 65 - 99 mg/dL | EXTERNAL | | | Fingerstick | performed at [facility];[address] | | LAB | | | | [address];[place] | | | | | | [address] | | | | + + + + + + + + | Specimen | + + | | + + + +---------+ + + | Performing | Address | City/State/Zipcode | Phone Number | | Organization | | | | + +---------+ + + | EXTERNAL LAB | | | | + +---------+ + + POC Glucose (08/21/2014 9:03 AM PDT) + + + + + + | Component | Value | Ref Range | Performed | Pathologist | | | | | At | Signature | + + + + + + | Glucose, | 135 (H)Comment: Testing | 65 - 99 mg/dL | EXTERNAL | | | Fingerstick | performed at [facility];[address] | | LAB | | | | [address];[place], [place] | | | | | | [address] | | | | + + + + + + + + | Specimen | + + | | + + + +---------+ + + | Performing | Address | City/State/Zipcode | Phone Number | | Organization | | | | + +---------+ + + | EXTERNAL LAB | | | | + +---------+ + + POC Glucose (08/21/2014 6:56 AM PDT) + + + + + + | Component | Value | Ref Range | Performed | Pathologist | | | | | At | Signature | + + + + + + | Glucose, | 110 (H)Comment: Testing | 65 - 99 mg/dL | EXTERNAL | | | Fingerstick | performed at [facility];[address] | | LAB | | | | [address];[place] | | | | | | [address] | | | | + + + + + + + + | Specimen | + + | | + + + +---------+ + + | Performing | Address | City/State/Zipcode | Phone Number | | Organization | | | | + +---------+ + + | EXTERNAL LAB | | | | + +---------+ + + XR Chest 1 Karolyn (08/21/2014 5:58 AM PDT) + + | Specimen | + + | | + + + + + | Impressions | Performed At | + + + | FINDINGS/ IMPRESSION: Left unchanged chest tube. No | | | pneumothorax, no pleural effusion. Low lung volumes. Right basilar | | | mild consolidation consistent with atelectasis or aspiration. Right | | | midlung platelike atelectasis. Left basilar atelectasis. No acute | | | osseous abnormality. Electronically signed by Nathan Mitchell MD on | | | 08/21/2014 7:14 AM | | + + + + + + | Narrative | Performed At | + + + | [facility] 1950 64 years XR CHEST 1 VIEW 08/21/2014 5:58 | | | AM INDICATION: Tube and line position. COMPARISON: August 20 | | | 2014 TECHNIQUE: Chest 1 view, AP view of the chest | | + + + + + | Procedure Note | + + | Francesco Reyes Conversion - 11/21/2018 8:32 AM PDT [facility] [id number] yearsXR CHEST | | 1 VIEW08/21/2014 5:58 AM INDICATION: Tube and line position. COMPARISON: Aug 20 2014 | | TECHNIQUE: Chest 1 view, AP view of the chest IMPRESSION: FINDINGS/ IMPRESSION: Left | | unchanged chest tube. No pneumothorax, no pleural effusion. Low lung volumes. Right | | basilar mild consolidation consistent with atelectasis or aspiration. Right midlung | | platelike atelectasis. Left basilar atelectasis. No acute osseous abnormality. | | | | | |COMPARISON: Aug 20 2014 | | | |TECHNIQUE: Chest 1 view, AP view of the chest | | | |IMPRESSION: | |FINDINGS/ IMPRESSION: | | | |Left unchanged chest tube. | | | |No pneumothorax, no pleural effusion. | | | |Low lung volumes. Right basilar mild consolidation consistent with atelectasis or aspiratio n. Right midlung platelike atelectasis. Left basilar atelectasis. | | | |No acute osseous abnormality. | | | | | + + External Lab: CBC (08/21/2014 5:46 AM PDT) + + + + + + | Component | Value | Ref Range | Performed | Pathologist | | | | | At | Signature | + + + + + + | WBC | 12.81 (H)Comment: | 3.80 - 11.00 | EXTERNAL | | | | Testing performed at | K/uL | LAB | | | | [facility], [address] [facility] | | | | | | [place] | | | | | | [address] | | | | + + + + + + | Red Blood | 3.05 (L)Comment: Testing | 4.20 - 5.70 | EXTERNAL | | | Cells | performed at [facility], [address] | M/uL | LAB | | | Counted | [address], | | | | | | [place] [address] | | | | + + + + + + | Hemoglobin | 10.0 (L)Comment: Testing | 13.2 - 17.0 | EXTERNAL | | | | performed at [facility], [address] | g/dL | LAB | | | | [address], | | | | | | [place] [address] | | | | + + + + + + | Hematocrit, | 31.3 (L)Comment: Testing | 39.0 - 50.0 % | EXTERNAL | | | POC | performed at [facility], [address] | | LAB | | | | [address], | | | | | | [place] [address] | | | | + + + + + + | MCV | 102.9 (H)Comment: | 80.0 - 100.0 fl | EXTERNAL | | | | Testing performed at | | LAB | | | | [facility], [address] | | | | | | [place] | | | | | | [address] | | | | + + + + + + | MCH | 33.0Comment: Testing | 27.0 - 34.0 pg | EXTERNAL | | | | performed at [facility], [address] | | LAB | | | | [address], | | | | | | [place] [address] | | | | + + + + + + | MCHC | 32.1Comment: Testing | 32.0 - 35.5 | EXTERNAL | | | | performed at [facility], [address] | g/dL | LAB | | | | [address], | | | | | | [place] [address] | | | | + + + + + + | RDW-CV | 45.9Comment: Testing | 37 - 53 fl | EXTERNAL | | | | performed at [facility], [address] | | LAB | | | | [address], | | | | | | [place] [address] | | | | + + + + + + | Platelet | 108 (L)Comment: Testing | 150 - 400 K/uL | EXTERNAL | | | Count | performed at [facility], [address] | | LAB | | | Plasma | [address], | | | | | | [place] [address] | | | | + + + + + + | MPV | 9.6Comment: Testing | fl | EXTERNAL | | | | performed at [facility], [address] | | LAB | | | | [address], | | | | | | [place] [address] | | | | + + + + + + | Differentia | MANUALComment: Testing | | EXTERNAL | | | l Type | performed at [facility], [address] | | LAB | | | | [address], | | | | | | [place] [address] | | | | + + + + + + | Segmented | 82Comment: Testing | % | EXTERNAL | | | Neutrophils | performed at [facility], [address] | | LAB | | | Manual | [address], | | | | | | [place] [address] | | | | + + + + + + | % Bands | 5Comment: Testing | % | EXTERNAL | | | | performed at [facility], [address] | | LAB | | | | [address], | | | | | | [place] [address] | | | | + + + + + + | Lymphocytes | 5Comment: Testing | % | EXTERNAL | | | Manual | performed at [facility], [address] | | LAB | | | | [address], | | | | | | [place] [address] | | | | + + + + + + | Monocytes | 6Comment: Testing | % | EXTERNAL | | | Manual | performed at [facility], [address] | | LAB | | | [address], | | | | | | [place] [address] | | | | + + + + + + | Eosinophils | 2Comment: Testing | % | EXTERNAL | | | Manual | performed at [facility], [address] | | LAB | | | | [address], | | | | | | [place] [address] | | | | + + + + + + | Absolute | 10.50 (H)Comment: | 1.90 - 7.40 | EXTERNAL | | | Neutrophils | Testing performed at | K/uL | LAB | | | | [facility], [address] | | | | | | [place] | | | | | | [address] | | | | + + + + + + | Bands | 0.64 (H)Comment: Testing | 0.00 - 0.20 | EXTERNAL | | | Manual | performed at [facility], [address] | K/uL | LAB | | | | [address], | | | | | | [place] [address] | | | | + + + + + + | Absolute | 0.64 (L)Comment: Testing | 1.00 - 3.90 | EXTERNAL | | | Lymphocytes | performed at [facility], [address] | K/uL | LAB | | | | [address], | | | | | | [place] [address] | | | | + + + + + + | Absolute | 0.77Comment: Testing | 0.00 - 0.80 | EXTERNAL | | | Monocytes | performed at [facility], [address] | K/uL | LAB | | | | [address], | | | | | | [place] [address] | | | | + + + + + + | Absolute | 0.26Comment: Testing | 0.00 - 0.50 | EXTERNAL | | | Eosinophils | performed at [facility], [address] | K/uL | LAB | | | | [address], | | | | | | [place] [address] | | | | + + + + + + | Platelet | DECREASEDComment: | | EXTERNAL | | | Estimate | Testing performed at | | LAB | | | | [facility], [address] | | | | | | [place] | | | | | | [address] | | | | + + + + + + | RBC | 1+Comment: MACRONORMAL | | EXTERNAL | | | Morphology | PLT MORPHTesting | | LAB | | | | performed at [facility], [address] | | | | | | [address], | | | | | | [place] [address] | | | | | | | | | | + + + + + + + + | Specimen | + + | Blood specimen | | (specimen) | + + + +---------+ + + | Performing | Address | City/State/Zipcode | Phone Number | | Organization | | | | + +---------+ + + | EXTERNAL LAB | | | | + +---------+ + + Magnesium (08/21/2014 5:46 AM PDT) + + + + + + | Component | Value | Ref Range | Performed | Pathologist | | | | | At | Signature | + + + + + + | Magnesium | 2.1Comment: Testing | 1.7 - 2.4 mg/dL | EXTERNAL | | | | performed at [facility], [address] | | LAB | | | | [address], | | | | | | [place] [address] | | | | + + + + + + + + | Specimen | + + | Blood specimen | | (specimen) | + + + +---------+ + + | Performing | Address | City/State/Zipcode | Phone Number | | Organization | | | | + +---------+ + + | EXTERNAL LAB | | | | + +---------+ + + Basic Metabolic Panel (08/21/2014 5:46 AM PDT) + + + + + + | Component | Value | Ref Range | Performed | Pathologist | | | | | At | Signature | + + + + + + | Na | 129 (L)Comment: Testing | 135 - 143 | EXTERNAL | | | | performed at [facility], [address] | mmol/L | LAB | | | | [address], | | | | | | [place] [address] | | | | + + + + + + | K | 5.2 (H)Comment: SPECIMEN | 3.5 - 4.9 | EXTERNAL | | | | SLIGHTLY | mmol/L | LAB | | | | HEMOLYZEDTesting | | | | | | performed at [facility], [address] | | | | | | [address], | | | | | | [place] [address] | | | | + + + + + + | Cl | 100Comment: Testing | 99 - 109 mmol/L | EXTERNAL | | | | performed at [facility], [address] | | LAB | | | | [address], | | | | | | [place] [address] | | | | + + + + + + | CO2 | 26Comment: Testing | 23 - 32 mmol/L | EXTERNAL | | | | performed at [facility], [address] | | LAB | | | | [address], | | | | | | [place] [address] | | | | + + + + + + | Anion Gap | 8Comment: Testing | 5 - 20 mmol/L | EXTERNAL | | | | performed at [facility], [address] | | LAB | | | | [address], | | | | | | [place] [address] | | | | + + + + + + | Glucose, | 131 (H)Comment: Testing | 65 - 99 mg/dL | EXTERNAL | | | Fasting | performed at [facility], [address] | | LAB | | | | [address], | | | | | | [place] [address] | | | | + + + + + + | BUN | 16Comment: Testing | 8 - 25 mg/dL | EXTERNAL | | | | performed at [facility], [address] | | LAB | | | | [address], | | | | | | [place] [address] | | | | + + + + + + | Creatinine | 0.77Comment: Testing | 0.70 - 1.30 | EXTERNAL | | | | performed at [facility], [address] | mg/dL | LAB | | | | [address], | | | | | | [place] [address] | | | | + + + + + + | BUN/Creatin | 21Comment: Testing | | EXTERNAL | | | ine Ratio | performed at [facility], [address] | | LAB | | | | [address], | | | | | | [place] [address] | | | | + + + + + + | Calcium | 8.5Comment: Testing | 8.5 - 10.5 | EXTERNAL | | | | performed at [facility], [address] | mg/dL | LAB | | | | [facility], | | | | | | [place] [address] | | | | + + + + + + | Estimated | >60Comment: GFR <60: | mL/min/1.73m2 | EXTERNAL | | | GFR | CHRONIC KIDNEY DISEASE, | | LAB | | | | IF FOUND OVER A 3 MONTH | | | | | | PERIOD.GFR <15: KIDNEY | | | | | | FAILURE.FOR | | | | | | AMERICANS, MULTIPLY THE | | | | | | CALCULATED GFR BY | | | | | | 1.210.Testing performed | | | | | | at [facility], [address] | | | | | | [facility], | | | | | | [place] [address] | | | | + + + + + + + + | Specimen | + + | Blood specimen | | (specimen) | + + + +---------+ + + | Performing | Address | City/State/Zipcode | Phone Number | | Organization | | | | + +---------+ + + | EXTERNAL LAB | | | | + +---------+ + + POC Glucose (08/21/2014 4:39 AM PDT) + + + + + + | Component | Value | Ref Range | Performed | Pathologist | | | | | At | Signature | + + + + + + | Glucose, | 131 (H)Comment: Testing | 65 - 99 mg/dL | EXTERNAL | | | Fingerstick | performed at [facility];[address] | | LAB | | | | [address];[place], [place] | | | | | | [address] | | | | + + + + + + + + | Specimen | + + | | + + + +---------+ + + | Performing | Address | City/State/Zipcode | Phone Number | | Organization | | | | + +---------+ + + | EXTERNAL LAB | | | | + +---------+ + + POC Glucose (08/21/2014 2:41 AM PDT) + + + + + + | Component | Value | Ref Range | Performed | Pathologist | | | | | At | Signature | + + + + + + | Glucose, | 115 (H)Comment: Testing | 65 - 99 mg/dL | EXTERNAL | | | Fingerstick | performed at [facility];[address] | | LAB | | | [address];[place] | | | | | | [address] | | | | + + + + + + + + | Specimen | + + | | + + + +---------+ + + | Performing | Address | City/State/Zipcode | Phone Number | | Organization | | | | + +---------+ + + | EXTERNAL LAB | | | | + +---------+ + + POC Glucose (08/21/2014 12:34 AM PDT) + + + + + + | Component | Value | Ref Range | Performed | Pathologist | | | | | At | Signature | + + + + + + | Glucose, | 128 (H)Comment: Testing | 65 - 99 mg/dL | EXTERNAL | | | Fingerstick | performed at [facility];[address] | | LAB | | | [address];[place], [place] | | | | | | [address] | | | | + + + + + + + + | Specimen | + + | | + + + +---------+ + + | Performing | Address | City/State/Zipcode | Phone Number | | Organization | | | | + +---------+ + + | EXTERNAL LAB | | | | + +---------+ + + POC Glucose (08/20/2014 10:29 PM PDT) + + + + + + | Component | Value | Ref Range | Performed | Pathologist | | | | | At | Signature | + + + + + + | Glucose, | 125 (H)Comment: Testing | 65 - 99 mg/dL | EXTERNAL | | | Fingerstick | performed at [facility];[address] | | [address] | | | | [address];[place] | | | | | | [address] | | | | + + + + + + + + | Specimen | + + | | + + + +---------+ + + | Performing | Address | City/State/Zipcode | Phone Number | | Organization | | | | + +---------+ + + | EXTERNAL LAB | | | | + +---------+ + + POC Glucose (08/20/2014 9:25 PM PDT) + + + + + + | Component | Value | Ref Range | Performed | Pathologist | | | | | At | Signature | + + + + + + | Glucose, | 137 (H)Comment: Testing | 65 - 99 mg/dL | EXTERNAL | | | Fingerstick | performed at [facility];[address] | | LAB | | | | [address];[place], [place] | | | | | | [address] | | | | + + + + + + + + | Specimen | + + | | + + + +---------+ + + | Performing | Address | City/State/Zipcode | Phone Number | | Organization | | | | + +---------+ + + | EXTERNAL LAB | | | | + +---------+ + + XR Chest 1 Karolyn (08/20/2014 9:02 PM PDT) + + | Specimen | + + | | + + + + + | Impressions | Performed At | + + + | 1. Interval removal of the Orinda-Major catheter, with other | | | unchanged life-support lines and tubes, as above. 2. Slightly | | | improved lung volumes with diminishing bilateral subsegmental | | | atelectasis. Electronically signed by Darci Mehta MD on | | | 08/20/2014 9:33 PM | | + + + + + + | Narrative | Performed At | + + + | [facility] XR CHEST 1 VIEW 08/20/2014 9:02 PM HISTORY: | | | Coronary artery disease. TECHNIQUE: Frontal chest radiograph 2044 | | | hrs. COMPARISON: Chest radiographs, most recently 08/20/14 0430 | | | hrs. FINDINGS: The Orinda-Major catheter has been removed. The | | | mediastinal drain and left internal jugular approach Cordis catheter | | | are in place. Lung volumes have slightly improved. Bilateral lung | | | opacities are slightly improving suggestive of improving subsegmental | | | atelectasis. Median sternotomy wires are again found. Left basilar | | | chest tube is again seen, without pneumothorax. | | + + + + + | Procedure Note | + + | Eric, Rad Conversion - 11/21/2018 8:32 AM PDT YASMANY PEMBERTONXR CHEST 1 VIEW08/20/2014 | | 9:02 PM HISTORY:Coronary artery disease. TECHNIQUE:Frontal chest radiograph 2044 hrs. | | COMPARISON:Chest radiographs, most recently 08/20/14 0430 hrs. FINDINGS:The Orinda-Major | | catheter has been removed. The mediastinal drain and left internal jugular approach | | Cordis catheter are in place. Lung volumes have slightly improved. Bilateral lung | | opacities are slightly improving suggestive of improving subsegmental atelectasis. | | Median sternotomy wires are again found. Left basilar chest tube is again seen, without | | pneumothorax. IMPRESSION: 1. Interval removal of the Orinda-Major catheter, with other | | unchanged life-support lines and tubes, as above. 2. Slightly improved lung volumes | | with diminishing bilateral subsegmental atelectasis. | |Chest radiographs, most recently 08/20/14 0430 hrs. | | | |FINDINGS: | |The Orinda-Major catheter has been removed. The mediastinal drain and left internal jugular ap proach Cordis catheter are in place. Lung volumes have slightly improved. Bilateral lung opa cities are slightly improving suggestive of improving subsegmental | |atelectasis. Median sternotomy wires are again found. Left basilar chest tube is again seen , without pneumothorax. | | | |IMPRESSION: | |1. Interval removal of the Orinda-Major catheter, with other unchanged life-support lines and tubes, as above. | | | |2. Slightly improved lung volumes with diminishing bilateral subsegmental atelectasis. | | | | | + + Potassium (08/20/2014 7:08 PM PDT) + + + + + + | Component | Value | Ref Range | Performed | Pathologist | | | | | At | Signature | + + + + + + | K | 4.5Comment: Testing | 3.5 - 4.9 | EXTERNAL | | | | performed at [facility];888 | mmol/L | LAB | | | | [address];[place], [place] | | | | | | [address] | | | | + + + + + + + + | Specimen | + + | Blood specimen | | (specimen) | + + + +---------+ + + | Performing | Address | City/State/Zipcode | Phone Number | | Organization | | | | + +---------+ + + | EXTERNAL LAB | | | | + +---------+ + + POC Glucose (08/20/2014 6:59 PM PDT) + + + + + + | Component | Value | Ref Range | Performed | Pathologist | | | | | At | Signature | + + + + + + | Glucose, | 108 (H)Comment: Testing | 65 - 99 mg/dL | EXTERNAL | | | Fingerstick | performed at [facility] | | LAB | | | | [address];[place] | | | | | | [address] | | | | + + + + + + + + | Specimen | + + | | + + + +---------+ + + | Performing | Address | City/State/Zipcode | Phone Number | | Organization | | | | + +---------+ + + | EXTERNAL LAB | | | | + +---------+ + + POC Glucose (08/20/2014 6:01 PM PDT) + + + + + + | Component | Value | Ref Range | Performed | Pathologist | | | | | At | Signature | + + + + + + | Glucose, | 97Comment: Testing | 65 - 99 mg/dL | EXTERNAL | | | Fingerstick | performed at [facility];[address] | | LAB | | | | [address];[place] | | | | | | [address] | | | | + + + + + + + + | Specimen | + + | | + + + +---------+ + + | Performing | Address | City/State/Zipcode | Phone Number | | Organization | | | | + +---------+ + + | EXTERNAL LAB | | | | + +---------+ + + POC Glucose (08/20/2014 4:40 PM PDT) + + + + + + | Component | Value | Ref Range | Performed | Pathologist | | | | | At | Signature | + + + + + + | Glucose, | 111 (H)Comment: Testing | 65 - 99 mg/dL | EXTERNAL | | | Fingerstick | performed at [facility];[address] | | LAB | | | | [address];[place] | | | | | | [address] | | | | + + + + + + + + | Specimen | + + | | + + + +---------+ + + | Performing | Address | City/State/Zipcode | Phone Number | | Organization | | | | + +---------+ + + | EXTERNAL LAB | | | | + +---------+ + + Potassium (08/20/2014 4:06 PM PDT) + + + + + + | Component | Value | Ref Range | Performed | Pathologist | | | | | At | Signature | + + + + + + | K | 4.7Comment: Testing | 3.5 - 4.9 | EXTERNAL | | | | performed at [facility];888 | mmol/L | LAB | | | | [address];[place], [place] | | | | | | [address] | | | | + + + + + + + + | Specimen | + + | Blood specimen | | (specimen) | + + + +---------+ + + | Performing | Address | City/State/Zipcode | Phone Number | | Organization | | | | + +---------+ + + | EXTERNAL LAB | | | | + +---------+ + + POC Glucose (08/20/2014 3:39 PM PDT) + + + + + + | Component | Value | Ref Range | Performed | Pathologist | | | | | At | Signature | + + + + + + | Glucose, | 148 (H)Comment: Testing | 65 - 99 mg/dL | EXTERNAL | | | Fingerstick | performed at [facility];[address] | | LAB | | | | [address];[place] | | | | | | [address] | | | | + + + + + + + + | Specimen | + + | | + + + +---------+ + + | Performing | Address | City/State/Zipcode | Phone Number | | Organization | | | | + +---------+ + + | EXTERNAL LAB | | | | + +---------+ + + POC Glucose (08/20/2014 1:30 PM PDT) + + + + + + | Component | Value | Ref Range | Performed | Pathologist | | | | | At | Signature | + + + + + + | Glucose, | 116 (H)Comment: Testing | 65 - 99 mg/dL | EXTERNAL | | | Fingerstick | performed at [facility];[address] | | LAB | | | | [facility];[place], [place] | | | | | | [address] | | | | + + + + + + + + | Specimen | + + | | + + + +---------+ + + | Performing | Address | City/State/Zipcode | Phone Number | | Organization | | | | + +---------+ + + | EXTERNAL LAB | | | | + +---------+ + + Potassium (08/20/2014 12:39 PM PDT) + + + + + + | Component | Value | Ref Range | Performed | Pathologist | | | | | At | Signature | + + + + + + | K | 4.8Comment: Testing | 3.5 - 4.9 | EXTERNAL | | | | performed at [facility];888 | mmol/L | LAB | | | | [address];[place] | | | | | | [address] | | | | + + + + + + + + | Specimen | + + | Blood specimen | | (specimen) | + + + +---------+ + + | Performing | Address | City/State/Zipcode | Phone Number | | Organization | | | | + +---------+ + + | EXTERNAL LAB | | | | + +---------+ + + POC Glucose (08/20/2014 12:23 PM PDT) + + + + + + | Component | Value | Ref Range | Performed | Pathologist | | | | | At | Signature | + + + + + + | Glucose, | 112 (H)Comment: Testing | 65 - 99 mg/dL | EXTERNAL | | | Fingerstick | performed at [facility];[address] | | LAB | | | | [address];[place], [place] | | | | | | [address] | | | | + + + + + + + + | Specimen | + + | | + + + +---------+ + + | Performing | Address | City/State/Zipcode | Phone Number | | Organization | | | | + +---------+ + + | EXTERNAL LAB | | | | + +---------+ + + POC Glucose (08/20/2014 11:27 AM PDT) + + + + + + | Component | Value | Ref Range | Performed | Pathologist | | | | | At | Signature | + + + + + + | Glucose, | 91Comment: Testing | 65 - 99 mg/dL | EXTERNAL | | | Fingerstick | performed at [facility];[address] | | LAB | | | | [address];[place] | | | | | | [address] | | | | + + + + + + + + | Specimen | + + | | + + + +---------+ + + | Performing | Address | City/State/Zipcode | Phone Number | | Organization | | | | + +---------+ + + | EXTERNAL LAB | | | | + +---------+ + + POC Glucose (08/20/2014 10:20 AM PDT) + + + + + + | Component | Value | Ref Range | Performed | Pathologist | | | | | At | Signature | + + + + + + | Glucose, | 110 (H)Comment: Testing | 65 - 99 mg/dL | EXTERNAL | | | Fingerstick | performed at [facility];[address] | | LAB | | | | [address];[place] | | | | | | [address] | | | | + + + + + + + + | Specimen | + + | | + + + +---------+ + + | Performing | Address | City/State/Zipcode | Phone Number | | Organization | | | | + +---------+ + + | EXTERNAL LAB | | | | + +---------+ + + POC Glucose (08/20/2014 9:17 AM PDT) + + + + + + | Component | Value | Ref Range | Performed | Pathologist | | | | | At | Signature | + + + + + + | Glucose, | 117 (H)Comment: Testing | 65 - 99 mg/dL | EXTERNAL | | | Fingerstick | performed at [facility];[address] | | LAB | | | | [address];[place] | | | | | | [address] | | | | + + + + + + + + | Specimen | + + | | + + + +---------+ + + | Performing | Address | City/State/Zipcode | Phone Number | | Organization | | | | + +---------+ + + | EXTERNAL LAB | | | | + +---------+ + + POC Glucose (08/20/2014 8:10 AM PDT) + + + + + + | Component | Value | Ref Range | Performed | Pathologist | | | | | At | Signature | + + + + + + | Glucose, | 163 (H)Comment: Testing | 65 - 99 mg/dL | EXTERNAL | | | Fingerstick | performed at [facility];[address] | | LAB | | | | [address];[place], [place] | | | | | | [address] | | | | + + + + + + + + | Specimen | + + | | + + + +---------+ + + | Performing | Address | City/State/Zipcode | Phone Number | | Organization | | | | + +---------+ + + | EXTERNAL LAB | | | | + +---------+ + + Potassium (08/20/2014 8:00 AM PDT) + + + + + + | Component | Value | Ref Range | Performed | Pathologist | | | | | At | Signature | + + + + + + | K | 4.4Comment: Testing | 3.5 - 4.9 | EXTERNAL | | | | performed at [facility];888 | mmol/L | LAB | | | | [facility];[place], [place] | | | | | | [address] | | | | + + + + + + + + | Specimen | + + | Blood specimen | | (specimen) | + + + +---------+ + + | Performing | Address | City/State/Zipcode | Phone Number | | Organization | | | | + +---------+ + + | EXTERNAL LAB | | | | + +---------+ + + POC Glucose (08/20/2014 7:14 AM PDT) + + + + + + | Component | Value | Ref Range | Performed | Pathologist | | | | | At | Signature | + + + + + + | Glucose, | 135 (H)Comment: Testing | 65 - 99 mg/dL | EXTERNAL | | | Fingerstick | performed at [facility];[address] | | LAB | | | | [address];[place] | | | | | | [address] | | | | + + + + + + + + | Specimen | + + | | + + + +---------+ + + | Performing | Address | City/State/Zipcode | Phone Number | | Organization | | | | + +---------+ + + | EXTERNAL LAB | | | | + +---------+ + + POC Glucose (08/20/2014 5:44 AM PDT) + + + + + + | Component | Value | Ref Range | Performed | Pathologist | | | | | At | Signature | + + + + + + | Glucose, | 158 (H)Comment: Testing | 65 - 99 mg/dL | EXTERNAL | | | Fingerstick | performed at [facility];[address] | | LAB | | | | [address];[place], [place] | | | | | | [address] | | | | + + + + + + + + | Specimen | + + | | + + + +---------+ + + | Performing | Address | City/State/Zipcode | Phone Number | | Organization | | | | + +---------+ + + | EXTERNAL LAB | | | | + +---------+ + + XR Chest 1 Vw (08/20/2014 5:32 AM PDT) + + | Specimen | + + | | + + + + + | Impressions | Performed At | + + + | 1. Improving right upper lobe atelectasis with shifting bilateral | | | perihilar and left basilar atelectasis. 2. Removal ET tube, with | | | otherwise unchanged tubes and lines. | | + + + + + + | Narrative | Performed At | + + + | HISTORY: Difficulty breathing. Evaluate tubes and lines. | | | COMPARISON: 08/19/14. TECHNIQUE: AP portable film of the chest at | | | 0438 hours FINDINGS: Removal endotracheal tube. Left IJ sheath | | | with Orinda-Major catheter in the proximal right main pulmonary artery, | | | midline mediastinal drain, left lateral basilar chest tubes remain in | | | place. No pneumothorax. Improvement in the right upper lobe | | | atelectasis, with persistent bilateral perihilar and mild left | | | basilar atelectasis. Lung volumes remain low. No pneumothorax. Heart | | | size is upper normal. | | + + + + + | Procedure Note | + + | Eric, Rad Conversion - 11/21/2018 8:32 AM PDT HISTORY:Difficulty breathing. Evaluate | | tubes and lines. COMPARISON:08/19/14. TECHNIQUE:AP portable film of the chest at 0438 | | hours FINDINGS:Removal endotracheal tube. Left IJ sheath with Orinda-Major catheter in the | | proximal right main pulmonary artery, midline mediastinal drain, left lateral basilar | | chest tubes remain in place. No pneumothorax. Improvement in the right upper lobe | | atelectasis, with persistent bilateral perihilar and mild left basilar atelectasis. Lung | | volumes remain low. No pneumothorax. Heart size is upper normal. IMPRESSION: 1. | | Improving right upper lobe atelectasis with shifting bilateral perihilar and left | | basilar atelectasis.2. Removal ET tube, with otherwise unchanged tubes and lines. | | | |Removal endotracheal tube. Left IJ sheath with Orinda-Major catheter in the proximal right russell n pulmonary artery, midline mediastinal drain, left lateral basilar chest tubes remain in pl marcela. No pneumothorax. Improvement | |in the right upper lobe atelectasis, | |with persistent bilateral perihilar and mild left basilar atelectasis. Lung volumes remain low. No pneumothorax. Heart size is upper normal. | | | |IMPRESSION: | |1. Improving right upper lobe atelectasis with shifting bilateral perihilar and left basil ar atelectasis. | |2. Removal ET tube, with otherwise unchanged tubes and lines. | | | | | + + POC Glucose (08/20/2014 3:25 AM PDT) + + + + + + | Component | Value | Ref Range | Performed | Pathologist | | | | | At | Signature | + + + + + + | Glucose, | 121 (H)Comment: Testing | 65 - 99 mg/dL | EXTERNAL | | | Fingerstick | performed at [facility];[address] | | LAB | | | | [address];[place] | | | | | | [address] | | | | + + + + + + + + | Specimen | + + | | + + + +---------+ + + | Performing | Address | City/State/Zipcode | Phone Number | | Organization | | | | + +---------+ + + | EXTERNAL LAB | | | | + +---------+ + + External Lab: CBC (08/20/2014 3:24 AM PDT) + + + + + + | Component | Value | Ref Range | Performed | Pathologist | | | | | At | Signature | + + + + + + | WBC | 16.59 (H)Comment: | 3.80 - 11.00 | EXTERNAL | | | | Testing performed at | K/uL | LAB | | | | [facility], [address] | | | | | | [place] | | | | | | [address] | | | | + + + + + + | Red Blood | 3.47 (L)Comment: Testing | 4.20 - 5.70 | EXTERNAL | | | Cells | performed at [facility], [address] | M/uL | LAB | | | Counted | [address], | | | | | | [place] [address] | | | | + + + + + + | Hemoglobin | 11.6 (L)Comment: Testing | 13.2 - 17.0 | EXTERNAL | | | | performed at [facility], [address] | g/dL | LAB | | | | [address], | | | | | | [place] [address] | | | | + + + + + + | Hematocrit, | 35.5 (L)Comment: Testing | 39.0 - 50.0 % | EXTERNAL | | | POC | performed at [facility], [address] | | LAB | | | | [address], | | | | | | [place] [address] | | | | + + + + + + | MCV | 102.3 (H)Comment: | 80.0 - 100.0 fl | EXTERNAL | | | | Testing performed at | | LAB | | | | [facility], [address] | | | | | | [place] | | | | | | [address] | | | | + + + + + + | MCH | 33.4Comment: Testing | 27.0 - 34.0 pg | EXTERNAL | | | | performed at [facility], [address] | | LAB | | | | [address] [place], | | | | | | [place] [address] | | | | + + + + + + | MCHC | 32.6Comment: Testing | 32.0 - 35.5 | EXTERNAL | | | | performed at [facility], [address] | g/dL | LAB | | | | [address], | | | | | | [place] [address] | | | | + + + + + + | RDW-CV | 47.7Comment: Testing | 37 - 53 fl | EXTERNAL | | | | performed at [facility], [address] | | LAB | | | | [address], | | | | | | [place] [address] | | | | + + + + + + | Platelet | 140 (L)Comment: Testing | 150 - 400 K/uL | EXTERNAL | | | Count | performed at [facility], [address] | | LAB | | | Plasma | [address], | | | | | | [place] [address] | | | | + + + + + + | MPV | 9.4Comment: Testing | fl | EXTERNAL | | | | performed at [facility], [address] | | LAB | | | | [address], | | | | | | [place] [address] | | | | + + + + + + | Differentia | MANUALComment: Testing | | EXTERNAL | | | l Type | performed at [facility], [address] | | LAB | | | | [address], | | | | | | [place], [place] [address] | | | | + + + + + + | Segmented | 79Comment: Testing | % | EXTERNAL | | | Neutrophils | performed at [facility], [address] | | LAB | | | Manual | [address], | | | | | | [place], [place] [address] | | | | + + + + + + | % Bands | 9Comment: Testing | % | EXTERNAL | | | | performed at [facility], [address] | | LAB | | | | [address], | | | | | | [place], [place] [address] | | | | + + + + + + | Lymphocytes | 3Comment: Testing | % | EXTERNAL | | | Manual | performed at [facility], [address] | | LAB | | | | [address], | | | | | | [place] [address] | | | | + + + + + + | Monocytes | 9Comment: Testing | % | EXTERNAL | | | Manual | performed at [facility], [address] | | LAB | | | | [address] [place], | | | | | | [place] [address] | | | | + + + + + + | Absolute | 13.11 (H)Comment: | 1.90 - 7.40 | EXTERNAL | | | Neutrophils | Testing performed at | K/uL | LAB | | | | [facility], [address] [facility] | | | | | | [place] | | | | | | [address] | | | | + + + + + + | Bands | 1.49 (H)Comment: Testing | 0.00 - 0.20 | EXTERNAL | | | Manual | performed at [facility], [address] | K/uL | LAB | | | | [address] [place], | | | | | | [place] [address] | | | | + + + + + + | Absolute | 0.50 (L)Comment: Testing | 1.00 - 3.90 | EXTERNAL | | | Lymphocytes | performed at [facility], [address] | K/uL | LAB | | | | [address], | | | | | | [place] [address] | | | | + + + + + + | Absolute | 1.49 (H)Comment: Testing | 0.00 - 0.80 | EXTERNAL | | | Monocytes | performed at [facility], [address] | K/uL | LAB | | | | [address], | | | | | | [place] [address] | | | | + + + + + + | Platelet | DECREASEDComment: | | EXTERNAL | | | Estimate | Testing performed at | | LAB | | | | [facility], [address] | | | | | | [place] | | | | | | [address] | | | | + + + + + + | RBC | 1+Comment: MACRONORMAL | | EXTERNAL | | | Morphology | PLT MORPHTesting | | LAB | | | | performed at [facility], [address] | | | | | | [address] [place], | | | | | | [place] [address] | | | | | | | | | | + + + + + + + + | Specimen | + + | Blood specimen | | (specimen) | + + + +---------+ + + | Performing | Address | City/State/Zipcode | Phone Number | | Organization | | | | + +---------+ + + | EXTERNAL LAB | | | | + +---------+ + + Magnesium (08/20/2014 3:24 AM PDT) + + + + + + | Component | Value | Ref Range | Performed | Pathologist | | | | | At | Signature | + + + + + + | Magnesium | 2.3Comment: Testing | 1.7 - 2.4 mg/dL | EXTERNAL | | | | performed at [facility], [address] | | LAB | | | | [address] [place], | | | | | | [place] [address] | | | | + + + + + + + + | Specimen | + + | Blood specimen | | (specimen) | + + + +---------+ + + | Performing | Address | City/State/Zipcode | Phone Number | | Organization | | | | + +---------+ + + | EXTERNAL LAB | | | | + +---------+ + + Hemoglobin A1C (08/20/2014 3:24 AM PDT) + + + + + + | Component | Value | Ref Range | Performed | Pathologist | | | | | At | Signature | + + + + + + | Hemoglobin | 5.9Comment: The [place] | 4.0 - 6.0 % | EXTERNAL | | | A1c | Diabetes Association | | LAB | | | | considers a hemoglobin | | | | | | A1c result of <7.0% to | | | | | | be the goal of diabetic | | | | | | therapy. When results | | | | | | are consistently >8.0%, | | | | | | the ADA suggests | | | | | | reevaluation of the | | | | | | treatment regimen. The | | | | | | testing method used is | | | | | | certified traceable to | | | | | | the Diabetes Control and | | | | | | Complications Trial | | | | | | reference method.Testing | | | | | | performed at [facility], [address] | | | | | | [address] [place], | | | | | | [place] [address] | | | | + + + + + + | Glycohemogl | 123Comment: The ADA | mg/dL | EXTERNAL | | | obin | considers an eAG result | | LAB | | | (GHb),Total | of LT 154 mg/dL to be | | | | | | the goal of diabetic | | | | | | therapy. Estimated | | | | | | Average Glucose | | | | | | calculated from | | | | | | hemoglobin A1c by use of | | | | | | the ADA recommended | | | | | | formula.Testing | | | | | | performed at [facility], [address] | | | | | | [facility], | | | | | | [place] [address] | | | | + + + + + + + + | Specimen | + + | Blood specimen | | (specimen) | + + + +---------+ + + | Performing | Address | City/State/Zipcode | Phone Number | | Organization | | | | + +---------+ + + | EXTERNAL LAB | | | | + +---------+ + + Basic Metabolic Panel (08/20/2014 3:24 AM PDT) + + + + + + | Component | Value | Ref Range | Performed | Pathologist | | | | | At | Signature | + + + + + + | Na | 135Comment: Testing | 135 - 143 | EXTERNAL | | | | performed at [facility], [address] | mmol/L | LAB | | | | [address] [place], | | | | | | [place] [address] | | | | + + + + + + | K | 4.9Comment: Testing | 3.5 - 4.9 | EXTERNAL | | | | performed at [facility], [address] | mmol/L | LAB | | | | [address], | | | | | | [place] [address] | | | | + + + + + + | Cl | 105Comment: Testing | 99 - 109 mmol/L | EXTERNAL | | | | performed at [facility], [address] | | LAB | | | | [address], | | | | | | [place] [address] | | | | + + + + + + | CO2 | 24Comment: Testing | 23 - 32 mmol/L | EXTERNAL | | | | performed at [facility], [address] | | LAB | | | | [address], | | | | | | [place] [address] | | | | + + + + + + | Anion Gap | 11Comment: Testing | 5 - 20 mmol/L | EXTERNAL | | | | performed at [facility], [address] | | LAB | | | | [address], | | | | | | [place] [address] | | | | + + + + + + | Glucose, | 131 (H)Comment: Testing | 65 - 99 mg/dL | EXTERNAL | | | Fasting | performed at [facility], [address] | | LAB | | | | [address], | | | | | | [place] [address] | | | | + + + + + + | BUN | 17Comment: Testing | 8 - 25 mg/dL | EXTERNAL | | | | performed at [facility], [address] | | LAB | | | | [address], | | | | | | [place] [address] | | | | + + + + + + | Creatinine | 0.97Comment: Testing | 0.70 - 1.30 | EXTERNAL | | | | performed at [facility], [address] | mg/dL | LAB | | | | [address], | | | | | | [place] [address] | | | | + + + + + + | BUN/Creatin | 18Comment: Testing | | EXTERNAL | | | ine Ratio | performed at [facility], [address] | | LAB | | | | [address] [place], | | | | | | [place] [address] | | | | + + + + + + | Calcium | 8.2 (L)Comment: Testing | 8.5 - 10.5 | EXTERNAL | | | | performed at [facility], [address] | mg/dL | LAB | | | | [address], | | | | | | [place] [address] | | | | + + + + + + | Estimated | >60Comment: GFR <60: | mL/min/1.73m2 | EXTERNAL | | | GFR | CHRONIC KIDNEY DISEASE, | | LAB | | | | IF FOUND OVER A 3 MONTH | | | | | | PERIOD.GFR <15: KIDNEY | | | | | | FAILURE.FOR | | | | | | AMERICANS, MULTIPLY THE | | | | | | CALCULATED GFR BY | | | | | | 1.210.Testing performed | | | | | | at [facility], [address] | | | | | | [address], | | | | | | [place] [address] | | | | + + + + + + + + | Specimen | + + | Blood specimen | | (specimen) | + + + +---------+ + + | Performing | Address | City/State/Zipcode | Phone Number | | Organization | | | | + +---------+ + + | EXTERNAL LAB | | | | + +---------+ + + POC Glucose (08/20/2014 1:12 AM PDT) + + + + + + | Component | Value | Ref Range | Performed | Pathologist | | | | | At | Signature | + + + + + + | Glucose, | 135 (H)Comment: Testing | 65 - 99 mg/dL | EXTERNAL | | | Fingerstick | performed at [facility];[address] | | LAB | | | | [address];[place], [place] | | | | | | [address] | | | | + + + + + + + + | Specimen | + + | | + + + +---------+ + + | Performing | Address | City/State/Zipcode | Phone Number | | Organization | | | | + +---------+ + + | EXTERNAL LAB | | | | + +---------+ + + Potassium (08/20/2014 12:41 AM PDT) + + + + + + | Component | Value | Ref Range | Performed | Pathologist | | | | | At | Signature | + + + + + + | K | 5.1 (H)Comment: Testing | 3.5 - 4.9 | EXTERNAL | | | | performed at [facility];888 | mmol/L | LAB | | | | [address];[place], [place] | | | | | | [address] | | | | + + + + + + + + | Specimen | + + | Blood specimen | | (specimen) | + + + +---------+ + + | Performing | Address | City/State/Zipcode | Phone Number | | Organization | | | | + +---------+ + + | EXTERNAL LAB | | | | + +---------+ + + POC Glucose (08/19/2014 11:07 PM PDT) + + + + + + | Component | Value | Ref Range | Performed | Pathologist | | | | | At | Signature | + + + + + + | Glucose, | 143 (H)Comment: Testing | 65 - 99 mg/dL | EXTERNAL | | | Fingerstick | performed at [facility];888 | | LAB | | | | [address];[place] | | | | | | [address] | | | | + + + + + + + + | Specimen | + + | | + + + +---------+ + + | Performing | Address | City/State/Zipcode | Phone Number | | Organization | | | | + +---------+ + + | EXTERNAL LAB | | | | + +---------+ + + POC Glucose (08/19/2014 8:46 PM PDT) + + + + + + | Component | Value | Ref Range | Performed | Pathologist | | | | | At | Signature | + + + + + + | Glucose, | 120 (H)Comment: Testing | 65 - 99 mg/dL | EXTERNAL | | | Fingerstick | performed at [facility];[address] | | LAB | | | | [address];[place], [place] | | | | | | [address] | | | | + + + + + + + + | Specimen | + + | | + + + +---------+ + + | Performing | Address | City/State/Zipcode | Phone Number | | Organization | | | | + +---------+ + + | EXTERNAL LAB | | | | + +---------+ + + Potassium (08/19/2014 7:00 PM PDT) + + + + + + | Component | Value | Ref Range | Performed | Pathologist | | | | | At | Signature | + + + + + + | K | 5.3 (H)Comment: Testing | 3.5 - 4.9 | EXTERNAL | | | | performed at [facility];888 | mmol/L | LAB | | | | [address];[place], [place] | | | | | | [address] | | | | + + + + + + + + | Specimen | + + | Blood specimen | | (specimen) | + + + +---------+ + + | Performing | Address | City/State/Zipcode | Phone Number | | Organization | | | | + +---------+ + + | EXTERNAL LAB | | | | + +---------+ + + POC Glucose (08/19/2014 6:00 PM PDT) + + + + + + | Component | Value | Ref Range | Performed | Pathologist | | | | | At | Signature | + + + + + + | Glucose, | 119 (H)Comment: Testing | 65 - 99 mg/dL | EXTERNAL | | | Fingerstick | performed at [facility];888 | | LAB | | | | [address];[place] | | | | | | [address] | | | | + + + + + + + + | Specimen | + + | | + + + +---------+ + + | Performing | Address | City/State/Zipcode | Phone Number | | Organization | | | | + +---------+ + + | EXTERNAL LAB | | | | + +---------+ + + POC Glucose (08/19/2014 4:52 PM PDT) + + + + + + | Component | Value | Ref Range | Performed | Pathologist | | | | | At | Signature | + + + + + + | Glucose, | 129 (H)Comment: Testing | 65 - 99 mg/dL | EXTERNAL | | | Fingerstick | performed at [facility];888 | | LAB | | | | [address];[place] | | | | | | [address] | | | | + + + + + + + + | Specimen | + + | | + + + +---------+ + + | Performing | Address | City/State/Zipcode | Phone Number | | Organization | | | | + +---------+ + + | EXTERNAL LAB | | | | + +---------+ + + POC Glucose (08/19/2014 4:22 PM PDT) + + + + + + | Component | Value | Ref Range | Performed | Pathologist | | | | | At | Signature | + + + + + + | Glucose, | 121 (H)Comment: Testing | 65 - 99 mg/dL | EXTERNAL | | | Fingerstick | performed at [facility];888 | | LAB | | | | [address];[place], [place] | | | | | | [address] | | | | + + + + + + + + | Specimen | + + | | + + + +---------+ + + | Performing | Address | City/State/Zipcode | Phone Number | | Organization | | | | + +---------+ + + | EXTERNAL LAB | | | | + +---------+ + + PTT (08/19/2014 3:03 PM PDT) + + + + + + | Component | Value | Ref Range | Performed | Pathologist | | | | | At | Signature | + + + + + + | aPTT, | 31Comment: Testing | 23 - 32 seconds | EXTERNAL | | | Patient | performed at [facility];[address] | | LAB | | | | [address];[place], [place] | | | | | | [address] | | | | + + + + + + + + | Specimen | + + | Blood specimen | | (specimen) | + + + +---------+ + + | Performing | Address | City/State/Zipcode | Phone Number | | Organization | | | | + +---------+ + + | EXTERNAL LAB | | | | + +---------+ + + Protime INR (08/19/2014 3:03 PM PDT) + + + + + + | Component | Value | Ref Range | Performed | Pathologist | | | | | At | Signature | + + + + + + | INR | 1.3Comment: REFERENCE | | EXTERNAL | | | | RANGE:0.9 - 1.2 | | LAB | | | | NON-ANTICOAGULATED2.0 | | | | | | - 3.0 ALL OTHER | | | | | | THERAPEUTIC | | | | | | INDICATIONS2.5 - 3.5 | | | | | | MECHANICAL HEART VALVES, | | | | | | RECURRENT OR SYSTEMIC | | | | | | EMBOLISMTesting | | | | | | performed at [facility] | | | | | | [address];[place], [place] | | | | | | [address] | | | | + + + + + + + + | Specimen | + + | Blood specimen | | (specimen) | + + + +---------+ + + | Performing | Address | City/State/Zipcode | Phone Number | | Organization | | | | + +---------+ + + | EXTERNAL LAB | | | | + +---------+ + + Fibrinogen (08/19/2014 3:03 PM PDT) + + + + + + | Component | Value | Ref Range | Performed | Pathologist | | | | | At | Signature | + + + + + + | Fibrinogen | 210Comment: Testing | 200 - 450 mg/dL | EXTERNAL | | | | performed at [facility] | | LAB | | | | [address];[place] | | | | | | [address] | | | | + + + + + + + + | Specimen | + + | Blood specimen | | (specimen) | + + + +---------+ + + | Performing | Address | City/State/Zipcode | Phone Number | | Organization | | | | + +---------+ + + | EXTERNAL LAB | | | | + +---------+ + + External Lab: CBC (08/19/2014 3:03 PM PDT) + + + + + + | Component | Value | Ref Range | Performed | Pathologist | | | | | At | Signature | + + + + + + | WBC | 15.68 (H)Comment: | 3.80 - 11.00 | EXTERNAL | | | | Testing performed at | K/uL | LAB | | | | [facility];[address];[place] [address] | | | | + + + + + + | Red Blood | 3.59 (L)Comment: Testing | 4.20 - 5.70 | EXTERNAL | | | Cells | performed at [facility];888 | M/uL | LAB | | | Counted | [address];[place] | | | | | | [address] | | | | + + + + + + | Hemoglobin | 12.3 (L)Comment: Testing | 13.2 - 17.0 | EXTERNAL | | | | performed at [facility];888 | g/dL | LAB | | | | [address];[place] | | | | | | [address] | | | | + + + + + + | Hematocrit, | 36.5 (L)Comment: Testing | 39.0 - 50.0 % | EXTERNAL | | | POC | performed at [facility];[address] | | LAB | | | | [address];[place] | | | | | | [address] | | | | + + + + + + | MCV | 101.8 (H)Comment: | 80.0 - 100.0 fl | EXTERNAL | | | | Testing performed at | | LAB | | | | [facility];[address];[place] [address] | | | | + + + + + + | MCH | 34.3 (H)Comment: Testing | 27.0 - 34.0 pg | EXTERNAL | | | | performed at [facility];[address] | | LAB | | | | [address];[place] | | | | | | [address] | | | | + + + + + + | MCHC | 33.7Comment: Testing | 32.0 - 35.5 | EXTERNAL | | | | performed at [facility];888 | g/dL | LAB | | | | [address];[place] | | | | | | [address] | | | | + + + + + + | RDW-CV | 44.6Comment: Testing | 37 - 53 fl | EXTERNAL | | | | performed at [facility];[address] | | LAB | | | | [address];[place] | | | | | | [address] | | | | + + + + + + | Platelet | 128 (L)Comment: Testing | 150 - 400 K/uL | EXTERNAL | | | Count | performed at [facility];[address] | | LAB | | | Plasma | [address];[place] | | | | | | [address] | | | | + + + + + + | MPV | 8.3Comment: Testing | fl | EXTERNAL | | | | performed at [facility];[address] | | LAB | | | | [address];[place] | | | | | | [address] | | | | + + + + + + | Differentia | MANUALComment: Testing | | EXTERNAL | | | l Type | performed at [facility];[address] | | LAB | | | | [address];[place] | | | | | | [address] | | | | + + + + + + | Segmented | 70Comment: Testing | % | EXTERNAL | | | Neutrophils | performed at [facility];[address] | | LAB | | | Manual | [address];[place] | | | | | | [address] | | | | + + + + + + | % Bands | 15Comment: Testing | % | EXTERNAL | | | | performed at [facility];[address] | | LAB | | | | [address];[place] | | | | | | [address] | | | | + + + + + + | Lymphocytes | 10Comment: Testing | % | EXTERNAL | | | Manual | performed at [facility];[address] | | LAB | | | | [address];[place] | | | | | | [address] | | | | + + + + + + | Monocytes | 4Comment: Testing | % | EXTERNAL | | | Manual | performed at [facility];[address] | | LAB | | | | [address] | | | | | | [address] | | | | + + + + + + | Eosinophils | 1Comment: Testing | % | EXTERNAL | | | Manual | performed at [facility];[address] | | LAB | | | | [address];[place] | | | | | | [address] | | | | + + + + + + | Absolute | 10.97 (H)Comment: | 1.90 - 7.40 | EXTERNAL | | | Neutrophils | Testing performed at | K/uL | LAB | | | | [facility];[address];[place] [address] | | | | + + + + + + | Bands | 2.35 (H)Comment: Testing | 0.00 - 0.20 | EXTERNAL | | | Manual | performed at [facility];[address] | K/uL | LAB | | | | [address];[place] | | | | | | [address] | | | | + + + + + + | Absolute | 1.57Comment: Testing | 1.00 - 3.90 | EXTERNAL | | | Lymphocytes | performed at [facility];[address] | K/uL | LAB | | | | [address];[place] | | | | | | [address] | | | | + + + + + + | Absolute | 0.63Comment: Testing | 0.00 - 0.80 | EXTERNAL | | | Monocytes | performed at [facility];[address] | K/uL | LAB | | | | [address];[place] | | | | | | [address] | | | | + + + + + + | Absolute | 0.16Comment: Testing | 0.00 - 0.50 | EXTERNAL | | | Eosinophils | performed at [facility];[address] | K/uL | LAB | | | | [address];[place] | | | | | | [address] | | | | + + + + + + | RBC | 1+Comment: MACRONORMAL | | EXTERNAL | | | Morphology | PLT MORPHTesting | | LAB | | | | performed at [facility];[address] | | | | | | [address];[place] | | | | | | [address] | | | | | | | | | | + + + + + + + + | Specimen | + + | Blood specimen | | (specimen) | + + + +---------+ + + | Performing | Address | City/State/Zipcode | Phone Number | | Organization | | | | + +---------+ + + | EXTERNAL LAB | | | | + +---------+ + + Magnesium (08/19/2014 3:03 PM PDT) + + + + + + | Component | Value | Ref Range | Performed | Pathologist | | | | | At | Signature | + + + + + + | Magnesium | 2.9 (H)Comment: Testing | 1.7 - 2.4 mg/dL | EXTERNAL | | | | performed at [facility];[address] | | LAB | | | | [address];[place] | | | | | | [address] | | | | + + + + + + + + | Specimen | + + | Blood specimen | | (specimen) | + + + +---------+ + + | Performing | Address | City/State/Zipcode | Phone Number | | Organization | | | | + +---------+ + + | EXTERNAL LAB | | | | + +---------+ + + Calcium, Ionized (08/19/2014 3:03 PM PDT) + + + + + + | Component | Value | Ref Range | Performed | Pathologist | | | | | At | Signature | + + + + + + | Calcium | 1.17Comment: Testing | 1.08 - 1.25 | EXTERNAL | | | (Calc) | performed at [facility];888 | mmol/L | LAB | | | | [address];[place], [place] | | | | | | [address] | | | | + + + + + + | pH, Bld | 7.302Comment: Testing | 7.300 - 7.450 | EXTERNAL | | | | performed at [facility];[address] | | LAB | | | | [address];[place] | | | | | | [address] | | | | + + + + + + + + | Specimen | + + | Blood specimen | | (specimen) | + + + +---------+ + + | Performing | Address | City/State/Zipcode | Phone Number | | Organization | | | | + +---------+ + + | EXTERNAL LAB | | | | + +---------+ + + Basic Metabolic Panel (08/19/2014 3:03 PM PDT) + + + + + + | Component | Value | Ref Range | Performed | Pathologist | | | | | At | Signature | + + + + + + | Na | 143Comment: Testing | 135 - 143 | EXTERNAL | | | | performed at [facility];[address] | mmol/L | LAB | | | | [address];[place] | | | | | | [address] | | | | + + + + + + | K | 4.4Comment: SLT | 3.5 - 4.9 | EXTERNAL | | | | HEMOLYSISTesting | mmol/L | LAB | | | | performed at [facility];[address] | | | | | | [address];[place] | | | | | | [address] | | | | + + + + + + | Cl | 110 (H)Comment: Testing | 99 - 109 mmol/L | EXTERNAL | | | | performed at [facility];[address] | | LAB | | | | [address];[place] | | | | | | [address] | | | | + + + + + + | CO2 | 23Comment: Testing | 23 - 32 mmol/L | EXTERNAL | | | | performed at [facility];[address] | | LAB | | | | [address];[place] | | | | | | [address] | | | | + + + + + + | Anion Gap | 14Comment: Testing | 5 - 20 mmol/L | EXTERNAL | | | | performed at [facility];[address] | | LAB | | | | [address];[place] | | | | | | [address] | | | | + + + + + + | Glucose, | 117 (H)Comment: Testing | 65 - 99 mg/dL | EXTERNAL | | | Fasting | performed at [facility];[address] | | LAB | | | | [address];[place] | | | | | | [address] | | | | + + + + + + | BUN | 18Comment: Testing | 8 - 25 mg/dL | EXTERNAL | | | | performed at [facility];[address] | | LAB | | | | [address];[place] | | | | | | [address] | | | | + + + + + + | Creatinine | 0.98Comment: Testing | 0.70 - 1.30 | EXTERNAL | | | | performed at [facility];[address] | mg/dL | LAB | | | | [address];[place] | | | | | | [address] | | | | + + + + + + | BUN/Creatin | 19Comment: Testing | | EXTERNAL | | | ine Ratio | performed at [facility];[address] | | LAB | | | | [address];[place] | | | | | | [address] | | | | + + + + + + | Calcium | 7.9 (L)Comment: Testing | 8.5 - 10.5 | EXTERNAL | | | | performed at [facility];[address] | mg/dL | LAB | | | | [address];[place] | | | | | | [address] | | | | + + + + + + | Estimated | >60Comment: GFR <60: | mL/min/1.73m2 | EXTERNAL | | | GFR | CHRONIC KIDNEY DISEASE, | | LAB | | | | IF FOUND OVER A 3 MONTH | | | | | | PERIOD.GFR <15: KIDNEY | | | | | | FAILURE.FOR | | | | | | AMERICANS, MULTIPLY THE | | | | | | CALCULATED GFR BY | | | | | | 1.210.Testing performed | | | | | | at [facility];[address];[place] [address] | | | | + + + + + + + + | Specimen | + + | Blood specimen | | (specimen) | + + + +---------+ + + | Performing | Address | City/State/Zipcode | Phone Number | | Organization | | | | + +---------+ + + | EXTERNAL LAB | | | | + +---------+ + + XR Chest 1 Vw (08/19/2014 3:01 PM PDT) + + | Specimen | + + | | + + + + + | Impressions | Performed At | + + + | FINDINGS/ IMPRESSION: Endotracheal tube 4.6 cm above the aydee. | | | Left Orinda-Major catheter tip within the right main pulmonary artery. | | | Left chest tube. Midline mediastinal drain in expected position. | | | Unchanged cardiomegaly. Upper mediastinal contours are unchanged. | | | Right upper lobe consolidation consistent with atelectasis or | | | aspiration. No pneumothorax. Left basilar atelectasis. No | | | acute osseous abnormality. | | + + + + + + | Narrative | Performed At | + + + | [facility] [place] 1950 64 years XR CHEST 1 VIEW 08/19/2014 3:01 | | | PM INDICATION: Tube and line position. COMPARISON: August 19 | | | 2014 1439 hrs. TECHNIQUE: Chest 1 view, AP view of the chest | | + + + + + | Procedure Note | + + | Eric, Rad Conversion - 11/21/2018 8:32 AM VICTORIA YASMANY [id number] yearsXR CHEST | | 1 VIEW08/19/2014 3:01 PM INDICATION: Tube and line position. COMPARISON: Aug 19 2014 | | 1439 hrs. TECHNIQUE: Chest 1 view, AP view of the chest IMPRESSION: FINDINGS/ | | IMPRESSION: Endotracheal tube 4.6 cm above the aydee. Left Orinda-Major catheter tip | | within the right main pulmonary artery. Left chest tube. Midline mediastinal drain in | | expected position. Unchanged cardiomegaly. Upper mediastinal contours are unchanged. | | Right upper lobe consolidation consistent with atelectasis or aspiration. No | | pneumothorax. Left basilar atelectasis. No acute osseous abnormality. Electronically | | signed by Nathan Mitchell MD on 08/19/2014 3:29 PM | | | |TECHNIQUE: Chest 1 view, AP view of the chest | | | |IMPRESSION: | |FINDINGS/ IMPRESSION: | | | |Endotracheal tube 4.6 cm above the aydee. Left Orinda-Major catheter tip within the right russell n pulmonary artery. Left chest tube. Midline mediastinal drain in expected position. | | | |Unchanged cardiomegaly. Upper mediastinal contours are unchanged. | | | |Right upper lobe consolidation consistent with atelectasis or aspiration. | | | |No pneumothorax. | | | |Left basilar atelectasis. | | | |No acute osseous abnormality. | | | | | + + POC Glucose (08/19/2014 2:56 PM PDT) + + + + + + | Component | Value | Ref Range | Performed | Pathologist | | | | | At | Signature | + + + + + + | Glucose, | 112 (H)Comment: Testing | 65 - 99 mg/dL | EXTERNAL | | | Fingerstick | performed at [facility];[address] | | LAB | | | | [address];[place] | | | | | | [address] | | | | + + + + + + + + | Specimen | + + | | + + + +---------+ + + | Performing | Address | City/State/Zipcode | Phone Number | | Organization | | | | + +---------+ + + | EXTERNAL LAB | | | | + +---------+ + + ECG 12 lead (08/19/2014 2:49 PM PDT) + + + + + + | Component | Value | Ref Range | Performed | Pathologist | | | | | At | Signature | + + + + + + | DIAGNOSIS: | Normal sinus rhythm with | | EXTERNAL | | | | sinus arrhythmiaLeft | | LAB | | | | axis | | | | | | deviationNon-specific | | | | | | intra-ventricular | | | | | | conduction blockAbnormal | | | | | | ECGNo previous ECGs | | | | | | availableConfirmed by | | | | | | KIMBERLEY KOHLI ([id number]) on | | | | | | 08/20/2014 12:17:27 PM | | | | + + + + + + + + | Specimen | + + | | + + + + + | Narrative | Performed At | + + + | Historically converted procedure from [facility] environment | EXTERNAL LAB | + + + + +---------+ + + | Performing | Address | City/State/Zipcode | Phone Number | | Organization | | | | + +---------+ + + | EXTERNAL LAB | | | | + +---------+ + + XR Chest 1 Vw (08/19/2014 2:40 PM PDT) + + | Specimen | + + | | + + + + + | Impressions | Performed At | + + + | 1. Tubes and lines, as described above. 2. Low lung volumes | | | with mild perihilar subsegmental atelectasis. Electronically | | | signed by Monroe Rendon DO on 08/19/2014 2:53 PM | | + + + + + + | Narrative | Performed At | + + + | [facility] JENNYBER XR CHEST 1 VIEW HISTORY: 64 years. Male. | | | Coronary artery disease. TECHNIQUE: Single portable anterior view | | | of the chest was obtained. COMPARISON: 08/17/2014 FINDINGS: | | | Heart is mildly enlarged this is stable in size. Left IJ Orinda-Major | | | catheter tip located in region of pulmonary outflow tract. | | | Endotracheal tube tip located approximately 4.8 cm above the aydee. | | | Nasogastric tube seen coursing below the diaphragm. Left-sided chest | | | tube appears in appropriate position. Low lung volumes with minimal | | | perihilar subsegmental atelectasis. No pneumothorax. | | + + + + + | Procedure Note | + + | Eric, Rad Conversion - 11/21/2018 8:32 AM PDT [facility] BENT[facility] CHEST 1 VIEW HISTORY:64 | | years. Male. Coronary artery disease. TECHNIQUE:Single portable anterior view of the | | chest was obtained. COMPARISON:08/17/2014 FINDINGS:Heart is mildly enlarged this is | | stable in size. Left IJ Orinda-Major catheter tip located in region of pulmonary outflow | | tract. Endotracheal tube tip located approximately 4.8 cm above the aydee. Nasogastric | | tube seen coursing below the diaphragm. Left-sided chest tube appears in appropriate | | position. Low lung volumes with minimal perihilar subsegmental atelectasis. No | | pneumothorax. IMPRESSION: 1. Tubes and lines, as described above.2. Low lung volumes | | with mild perihilar subsegmental atelectasis. | |08/17/2014 | | | |FINDINGS: | |Heart is mildly enlarged this is stable in size. Left IJ Orinda-Major catheter tip located in region of pulmonary outflow tract. Endotracheal tube tip located approximately 4.8 cm above the aydee. Nasogastric tube seen coursing below the diaphragm. | |Left-sided chest tube appears in appropriate position. Low lung volumes with minimal perihi lar subsegmental atelectasis. No pneumothorax. | | | |IMPRESSION: | |1. Tubes and lines, as described above. | |2. Low lung volumes with mild perihilar subsegmental atelectasis. | | | | | + + ECHO Transesophageal (RYDER) - Periop (08/19/2014 1:43 PM PDT) + + | Specimen | + + | | + + + + + | Narrative | Performed At | + + + | This is a non-reportable procedure without a feather drying machine operator report and | | | is used for image storage only. Please review the operative | | | procedure notes for details on the procedure. | | + + + + + | Procedure Note | + + | Francesco Ryees - 11/21/2018 8:32 AM PDT This is a non-reportable procedure | | without a feather drying machine operator report and isused for image storage only. Please review the | | operative procedure notesfor details on the procedure. | + + POC MICAELA, CG8, Arterial (08/19/2014 1:35 PM PDT) + + + + + + | Component | Value | Ref Range | Performed | Pathologist | | | | | At | Signature | + + + + + + | PH ART | 7.363Comment: Testing | 7.350 - 7.450 | EXTERNAL | | | | performed at [facility];[address] | | LAB | | | | [address];[place] | | | | | | [address] | | | | + + + + + + | PCO2 ART | 41Comment: Testing | 35 - 45 mmHg | EXTERNAL | | | | performed at [facility];[address] | | LAB | | | | [address];[place] | | | | | | [address] | | | | + + + + + + | PO2 ART | 131 (H)Comment: Testing | 80 - 105 mmHg | EXTERNAL | | | | performed at [facility];[address] | | LAB | | | | [address];[place] | | | | | | [address] | | | | + + + + + + | HCO3 ART | 23Comment: Testing | 22 - 26 mmol/L | EXTERNAL | | | | performed at [facility];[address] | | LAB | | | | [address];[place] | | | | | | [address] | | | | + + + + + + | POC | 24Comment: Testing | 23 - 27 mEq/L | EXTERNAL | | | APPEARANCE | performed at [facility];[address] | | LAB | | | [address] | [address];[place] | | | | | | [address] | | | | + + + + + + | Base | 2Comment: Testing | 0.0 - 2.0 | EXTERNAL | | | deficit | performed at [facility];[address] | mmol/L | LAB | | | | [address];[place] | | | | | | [address] | | | | + + + + + + | O2 SAT ART | 99 (H)Comment: Testing | 95 - 98 % | EXTERNAL | | | | performed at [facility];[address] | | LAB | | | | [address];[place] | | | | | | [address] | | | | + + + + + + | Sodium, POC | 137Comment: Testing | 135 - 145 mEq/L | EXTERNAL | | | | performed at [facility];[address] | | LAB | | | | [address];[place] | | | | | | [address] | | | | + + + + + + | Potassium, | 4.4Comment: Testing | 3.5 - 5.0 mEq/L | EXTERNAL | | | POC | performed at [facility];[address] | | LAB | | | | [address];[place] | | | | | | [address] | | | | + + + + + + | Ionized | 1.32Comment: Testing | 1.12 - 1.32 | EXTERNAL | | | Calcium, | performed at [facility];888 | mmol/L | LAB | | | POC | [address];[place] | | | | | | [address] | | | | + + + + + + | Glucose, | 197 (H)Comment: Testing | 65 - 99 mg/dL | EXTERNAL | | | POC | performed at [facility];[address] | | LAB | | | | [address];[place] | | | | | | [address] | | | | + + + + + + | Hematocrit, | 25 (L)Comment: Testing | 40.0 - 50.0 % | EXTERNAL | | | POC | performed at [facility];[address] | | LAB | | | | [address];[place] | | | | | | [address] | | | | + + + + + + | Hemoglobin, | 8.5 (L)Comment: Testing | 13.7 - 16.7 | EXTERNAL | | | POC | performed at [facility];888 | g/dL | LAB | | | | [address];[place] | | | | | | [address] | | | | + + + + + + + + | Specimen | + + | | + + + +---------+ + + | Performing | Address | City/State/Zipcode | Phone Number | | Organization | | | | + +---------+ + + | EXTERNAL LAB | | | | + +---------+ + + POC MICAELA, CG8, Arterial (08/19/2014 1:11 PM PDT) + + + + + + | Component | Value | Ref Range | Performed | Pathologist | | | | | At | Signature | + + + + + + | PH ART | 7.326 (L)Comment: | 7.350 - 7.450 | EXTERNAL | | | | Testing performed at | | LAB | | | | [facility];[address] | | | | | | [address];[place] [address] | | | | + + + + + + | PCO2 ART | 41Comment: Testing | 35 - 45 mmHg | EXTERNAL | | | | performed at [facility];[address] | | LAB | | | | [address];[place] | | | | | | [address] | | | | + + + + + + | PO2 ART | 107 (H)Comment: Testing | 80 - 105 mmHg | EXTERNAL | | | | performed at [facility];[address] | | LAB | | | | [address];[place] | | | | | | [address] | | | | + + + + + + | HCO3 ART | 22Comment: Testing | 22 - 26 mmol/L | EXTERNAL | | | | performed at [facility];[address] | | LAB | | | | [address];[place] | | | | | | [address] | | | | + + + + + + | POC | 23Comment: Testing | 23 - 27 mEq/L | EXTERNAL | | | APPEARANCE | performed at [facility];[address] | | LAB | | | UA | [address];[place] | | | | | | [address] | | | | + + + + + + | Base | 4 (H)Comment: Testing | 0.0 - 2.0 | EXTERNAL | | | deficit | performed at [facility];888 | mmol/L | LAB | | | | [address];[place] | | | | | | [address] | | | | + + + + + + | O2 SAT ART | 98Comment: Testing | 95 - 98 % | EXTERNAL | | | | performed at [facility];[address] | | LAB | | | | [address];[place] | | | | | | [address] | | | | + + + + + + | Sodium, POC | 138Comment: Testing | 135 - 145 mEq/L | EXTERNAL | | | | performed at [facility];[address] | | LAB | | | | [address] | | | | | | [address] | | | | + + + + + + | Potassium, | 5.9 (H)Comment: Testing | 3.5 - 5.0 mEq/L | EXTERNAL | | | POC | performed at [facility];[address] | | LAB | | | | [address] | | | | | | [address] | | | | + + + + + + | Ionized | 1.05 (L)Comment: Testing | 1.12 - 1.32 | EXTERNAL | | | Calcium, | performed at [facility];888 | mmol/L | LAB | | | POC | [address];[place] | | | | | | [address] | | | | + + + + + + | Glucose, | 142 (H)Comment: Testing | 65 - 99 mg/dL | EXTERNAL | | | POC | performed at [facility];[address] | | LAB | | | | [address] | | | | | | [address] | | | | + + + + + + | Hematocrit, | 26 (L)Comment: Testing | 40.0 - 50.0 % | EXTERNAL | | | POC | performed at [facility];[address] | | LAB | | | | [address];[place] | | | | | | [address] | | | | + + + + + + | Hemoglobin, | 8.8 (L)Comment: Testing | 13.7 - 16.7 | EXTERNAL | | | POC | performed at [facility];[address] | g/dL | LAB | | | | [address];[place], [place] | | | | | | [address] | | | | + + + + + + + + | Specimen | + + | | + + + +---------+ + + | Performing | Address | City/State/Zipcode | Phone Number | | Organization | | | | + +---------+ + + | EXTERNAL LAB | | | | + +---------+ + + POC MICAELA CG8, Arterial (08/19/2014 12:39 PM PDT) + + + + + + | Component | Value | Ref Range | Performed | Pathologist | | | | | At | Signature | + + + + + + | PH ART | 7.445Comment: Testing | 7.350 - 7.450 | EXTERNAL | | | | performed at [facility];[address] | | LAB | | | | [address];[place] | | | | | | [address] | | | | + + + + + + | PCO2 ART | 39Comment: Testing | 35 - 45 mmHg | EXTERNAL | | | | performed at [facility];[address] | | LAB | | | | [address];[place] | | | | | | [address] | | | | + + + + + + | PO2 ART | 194 (H)Comment: Testing | 80 - 105 mmHg | EXTERNAL | | | | performed at [facility];[address] | | LAB | | | | [address] | | | | | | [address] | | | | + + + + + + | HCO3 ART | 27 (H)Comment: Testing | 22 - 26 mmol/L | EXTERNAL | | | | performed at [facility];[address] | | LAB | | | | [address];[place] | | | | | | [address] | | | | + + + + + + | POC | 28 (H)Comment: Testing | 23 - 27 mEq/L | EXTERNAL | | | APPEARANCE | performed at [facility];[address] | | LAB | | | UA | [address];[place] | | | | | | [address] | | | | + + + + + + | Base | 3Comment: Testing | 0 - 3 mEq/L | EXTERNAL | | | Excess, | performed at [facility];[address] | | LAB | | | Arterial | [address];[place] | | | | | | [address] | | | | + + + + + + | O2 SAT ART | 100 (H)Comment: Testing | 95 - 98 % | EXTERNAL | | | | performed at [facility];[address] | | LAB | | | | [address] | | | | | | [address] | | | | + + + + + + | Sodium, POC | 137Comment: Testing | 135 - 145 mEq/L | EXTERNAL | | | | performed at [facility];[address] | | LAB | | | | [address] | | | | | | [address] | | | | + + + + + + | Potassium, | 5.5 (H)Comment: Testing | 3.5 - 5.0 mEq/L | EXTERNAL | | | POC | performed at [facility];[address] | | LAB | | | | [address];[place] | | | | | | [address] | | | | + + + + + + | Ionized | 1.04 (L)Comment: Testing | 1.12 - 1.32 | EXTERNAL | | | Calcium, | performed at [facility];888 | mmol/L | LAB | | | POC | [address];[place] | | | | | | [address] | | | | + + + + + + | Glucose, | 155 (H)Comment: Testing | 65 - 99 mg/dL | EXTERNAL | | | POC | performed at [facility];[address] | | LAB | | | | [address] | | | | | | [address] | | | | + + + + + + | Hematocrit, | 29 (L)Comment: Testing | 40.0 - 50.0 % | EXTERNAL | | | POC | performed at [facility];[address] | | LAB | | | | [address];[place] | | | | | | [address] | | | | + + + + + + | Hemoglobin, | 9.9 (L)Comment: Testing | 13.7 - 16.7 | EXTERNAL | | | POC | performed at [facility];888 | g/dL | LAB | | | | [address];[place] | | | | | | [address] | | | | + + + + + + + + | Specimen | + + | | + + + +---------+ + + | Performing | Address | City/State/Zipcode | Phone Number | | Organization | | | | + +---------+ + + | EXTERNAL LAB | | | | + +---------+ + + POC DELFINO HINOJOSA Arterial (08/19/2014 12:10 PM PDT) + + + + + + | Component | Value | Ref Range | Performed | Pathologist | | | | | At | Signature | + + + + + + | PH ART | 7.440Comment: Testing | 7.350 - 7.450 | EXTERNAL | | | | performed at [facility];[address] | | LAB | | | | [address] | | | | | | [address] | | | | + + + + + + | PCO2 ART | 41Comment: Testing | 35 - 45 mmHg | EXTERNAL | | | | performed at [facility];[address] | | LAB | | | | [address];[place] | | | | | | [address] | | | | + + + + + + | PO2 ART | 180 (H)Comment: Testing | 80 - 105 mmHg | EXTERNAL | | | | performed at [facility];[address] | | LAB | | | | [address] | | | | | | [address] | | | | + + + + + + | HCO3 ART | 28 (H)Comment: Testing | 22 - 26 mmol/L | EXTERNAL | | | | performed at [facility];[address] | | LAB | | | | [address] | | | | | | [address] | | | | + + + + + + | POC | 29 (H)Comment: Testing | 23 - 27 mEq/L | EXTERNAL | | | APPEARANCE | performed at [facility];[address] | | LAB | | | UA | [address];[place] | | | | | | [address] | | | | + + + + + + | Base | 4 (H)Comment: Testing | 0 - 3 mEq/L | EXTERNAL | | | Excess, | performed at [facility];[address] | | LAB | | | Arterial | [address];[place] | | | | | | [address] | | | | + + + + + + | O2 SAT ART | 100 (H)Comment: Testing | 95 - 98 % | EXTERNAL | | | | performed at [facility];[address] | | LAB | | | | [address] | | | | | | [address] | | | | + + + + + + | Sodium, POC | 135Comment: Testing | 135 - 145 mEq/L | EXTERNAL | | | | performed at [facility];[address] | | LAB | | | | [address];[place] | | | | | | [address] | | | | + + + + + + | Potassium, | 6.3 (HH)Comment: Testing | 3.5 - 5.0 mEq/L | EXTERNAL | | | POC | performed at [facility];[address] | | LAB | | | | [address];[place] | | | | | | [address] | | | | + + + + + + | Ionized | 1.01 (L)Comment: Testing | 1.12 - 1.32 | EXTERNAL | | | Calcium, | performed at [facility];888 | mmol/L | LAB | | | POC | [address];[place] | | | | | | [address] | | | | + + + + + + | Glucose, | 160 (H)Comment: Testing | 65 - 99 mg/dL | EXTERNAL | | | POC | performed at [facility];[address] | | LAB | | | | [address] | | | | | | [address] | | | | + + + + + + | Hematocrit, | 27 (L)Comment: Testing | 40.0 - 50.0 % | EXTERNAL | | | POC | performed at [facility];[address] | | LAB | | | | [address] | | | | | | [address] | | | | + + + + + + | Hemoglobin, | 9.2 (L)Comment: Testing | 13.7 - 16.7 | EXTERNAL | | | POC | performed at [facility];888 | g/dL | LAB | | | | [address];[place] | | | | | | [address] | | | | + + + + + + + + | Specimen | + + | | + + + +---------+ + + | Performing | Address | City/State/Zipcode | Phone Number | | Organization | | | | + +---------+ + + | EXTERNAL LAB | | | | + +---------+ + + PASTOR HINOJOSA CG8 Arterial (08/19/2014 11:40 AM PDT) + + + + + + | Component | Value | Ref Range | Performed | Pathologist | | | | | At | Signature | + + + + + + | PH ART | 7.405Comment: Testing | 7.350 - 7.450 | EXTERNAL | | | | performed at [facility];[address] | | LAB | | | | [address];[place] | | | | | | [address] | | | | + + + + + + | PCO2 ART | 48 (H)Comment: Testing | 35 - 45 mmHg | EXTERNAL | | | | performed at [facility];[address] | | LAB | | | | [address] | | | | | | [address] | | | | + + + + + + | PO2 ART | 259 (H)Comment: Testing | 80 - 105 mmHg | EXTERNAL | | | | performed at [facility];[address] | | LAB | | | | [address] | | | | | | [address] | | | | + + + + + + | HCO3 ART | 30 (H)Comment: Testing | 22 - 26 mmol/L | EXTERNAL | | | | performed at [facility];[address] | | LAB | | | | [address] | | | | | | [address] | | | | + + + + + + | POC | 31 (H)Comment: Testing | 23 - 27 mEq/L | EXTERNAL | | | APPEARANCE | performed at [facility];[address] | | LAB | | | UA | [address];[place] | | | | | | [address] | | | | + + + + + + | Base | 5 (H)Comment: Testing | 0 - 3 mEq/L | EXTERNAL | | | Excess, | performed at [facility];[address] | | LAB | | | Arterial | [address] | | | | | | [address] | | | | + + + + + + | O2 SAT ART | 100 (H)Comment: Testing | 95 - 98 % | EXTERNAL | | | | performed at [facility];[address] | | LAB | | | | [address];[place] | | | | | | [address] | | | | + + + + + + | Sodium, POC | 136Comment: Testing | 135 - 145 mEq/L | EXTERNAL | | | | performed at [facility];[address] | | LAB | | | | [address];[place] | | | | | | [address] | | | | + + + + + + | Potassium, | 5.7 (H)Comment: Testing | 3.5 - 5.0 mEq/L | EXTERNAL | | | POC | performed at [facility];[address] | | LAB | | | | [address] | | | | | | [address] | | | | + + + + + + | Ionized | 0.99 (L)Comment: Testing | 1.12 - 1.32 | EXTERNAL | | | Calcium, | performed at [facility];888 | mmol/L | LAB | | | POC | [address];[place] | | | | | | [address] | | | | + + + + + + | Glucose, | 159 (H)Comment: Testing | 65 - 99 mg/dL | EXTERNAL | | | POC | performed at [facility];[address] | | LAB | | | | [address] | | | | | | [address] | | | | + + + + + + | Hematocrit, | 27 (L)Comment: Testing | 40.0 - 50.0 % | EXTERNAL | | | POC | performed at [facility];[address] | | LAB | | | | [address] | | | | | | [address] | | | | + + + + + + | Hemoglobin, | 9.2 (L)Comment: Testing | 13.7 - 16.7 | EXTERNAL | | | POC | performed at [facility];888 | g/dL | LAB | | | | [address];[place] | | | | | | [address] | | | | + + + + + + + + | Specimen | + + | | + + + +---------+ + + | Performing | Address | City/State/Zipcode | Phone Number | | Organization | | | | + +---------+ + + | EXTERNAL LAB | | | | + +---------+ + + POC ISTAT, CG8, Arterial (08/19/2014 11:10 AM PDT) + + + + + + | Component | Value | Ref Range | Performed | Pathologist | | | | | At | Signature | + + + + + + | PH ART | 7.371Comment: Testing | 7.350 - 7.450 | EXTERNAL | | | | performed at [facility];[address] | | LAB | | | | [address];[place], [place] | | | | | | [address] | | | | + + + + + + | PCO2 ART | 55 (H)Comment: Testing | 35 - 45 mmHg | EXTERNAL | | | | performed at [facility];[address] | | LAB | | | | [address];[place] | | | | | | [address] | | | | + + + + + + | PO2 ART | 225 (H)Comment: Testing | 80 - 105 mmHg | EXTERNAL | | | | performed at [facility];[address] | | LAB | | | | [address];[place] | | | | | | [address] | | | | + + + + + + | HCO3 ART | 32 (H)Comment: Testing | 22 - 26 mmol/L | EXTERNAL | | | | performed at [facility];[address] | | LAB | | | | [address] | | | | | | [address] | | | | + + + + + + | POC | 33 (H)Comment: Testing | 23 - 27 mEq/L | EXTERNAL | | | APPEARANCE | performed at [facility];[address] | | LAB | | | UA | [address];[place] | | | | | | [address] | | | | + + + + + + | Base | 6 (H)Comment: Testing | 0 - 3 mEq/L | EXTERNAL | | | Excess, | performed at [facility];[address] | | LAB | | | Arterial | [address] | | | | | | [address] | | | | + + + + + + | O2 SAT ART | 100 (H)Comment: Testing | 95 - 98 % | EXTERNAL | | | | performed at [facility];[address] | | LAB | | | | [address] | | | | | | [address] | | | | + + + + + + | Sodium, POC | 133 (L)Comment: Testing | 135 - 145 mEq/L | EXTERNAL | | | | performed at [facility];[address] | | LAB | | | | [address] | | | | | | [address] | | | | + + + + + + | Potassium, | 4.5Comment: Testing | 3.5 - 5.0 mEq/L | EXTERNAL | | | POC | performed at [facility];[address] | | LAB | | | | [address];[place] | | | | | | [address] | | | | + + + + + + | Ionized | 0.92 (L)Comment: Testing | 1.12 - 1.32 | EXTERNAL | | | Calcium, | performed at [facility];888 | mmol/L | LAB | | | POC | [address];[place] | | | | | | [address] | | | | + + + + + + | Glucose, | 153 (H)Comment: Testing | 65 - 99 mg/dL | EXTERNAL | | | POC | performed at [facility];[address] | | LAB | | | | [address];[place] | | | | | | [address] | | | | + + + + + + | Hematocrit, | 29 (L)Comment: Testing | 40.0 - 50.0 % | EXTERNAL | | | POC | performed at [facility];[address] | | LAB | | | | [address] | | | | | | [address] | | | | + + + + + + | Hemoglobin, | 9.9 (L)Comment: Testing | 13.7 - 16.7 | EXTERNAL | | | POC | performed at [facility];888 | g/dL | LAB | | | | [address] | | | | | | [address] | | | | + + + + + + + + | Specimen | + + | | + + + +---------+ + + | Performing | Address | City/State/Zipcode | Phone Number | | Organization | | | | + +---------+ + + | EXTERNAL LAB | | | | + +---------+ + + POC MICAELA, CG8, Arterial (08/19/2014 9:47 AM PDT) + + + + + + | Component | Value | Ref Range | Performed | Pathologist | | | | | At | Signature | + + + + + + | PH ART | 7.340 (L)Comment: | 7.350 - 7.450 | EXTERNAL | | | | Testing performed at | | LAB | | | | [facility];[address] [facility] | | | | | | [address];[place] [address] | | | | + + + + + + | PCO2 ART | 52 (H)Comment: Testing | 35 - 45 mmHg | EXTERNAL | | | | performed at [facility];[address] | | LAB | | | | [address] | | | | | | [address] | | | | + + + + + + | PO2 ART | 291 (H)Comment: Testing | 80 - 105 mmHg | EXTERNAL | | | | performed at [facility];[address] | | LAB | | | | [address] | | | | | | [address] | | | | + + + + + + | HCO3 ART | 28 (H)Comment: Testing | 22 - 26 mmol/L | EXTERNAL | | | | performed at [facility];[address] | | LAB | | | | [address] | | | | | | [address] | | | | + + + + + + | POC | 30 (H)Comment: Testing | 23 - 27 mEq/L | EXTERNAL | | | APPEARANCE | performed at [facility];[address] | | LAB | | | UA | [address];[place] | | | | | | [address] | | | | + + + + + + | Base | 2Comment: Testing | 0 - 3 mEq/L | EXTERNAL | | | Excess, | performed at [facility];[address] | | LAB | | | Arterial | [address] | | | | | | [address] | | | | + + + + + + | O2 SAT ART | 100 (H)Comment: Testing | 95 - 98 % | EXTERNAL | | | | performed at [facility];[address] | | LAB | | | | [address] | | | | | | [address] | | | | + + + + + + | Sodium, POC | 136Comment: Testing | 135 - 145 mEq/L | EXTERNAL | | | | performed at [facility];[address] | | LAB | | | | [address] | | | | | | [address] | | | | + + + + + + | Potassium, | 4.3Comment: Testing | 3.5 - 5.0 mEq/L | EXTERNAL | | | POC | performed at [facility];[address] | | LAB | | | | [address] | | | | | | [address] | | | | + + + + + + | Ionized | 1.13Comment: Testing | 1.12 - 1.32 | EXTERNAL | | | Calcium, | performed at [facility];888 | mmol/L | LAB | | | POC | [address];[place] | | | | | | [address] | | | | + + + + + + | Glucose, | 174 (H)Comment: Testing | 65 - 99 mg/dL | EXTERNAL | | | POC | performed at [facility];[address] | | LAB | | | | [address] | | | | | | [address] | | | | + + + + + + | Hematocrit, | 39 (L)Comment: Testing | 40.0 - 50.0 % | EXTERNAL | | | POC | performed at [facility];[address] | | LAB | | | | [address] | | | | | | [address] | | | | + + + + + + | Hemoglobin, | 13.3 (L)Comment: Testing | 13.7 - 16.7 | EXTERNAL | | | POC | performed at [facility];888 | g/dL | LAB | | | | [address] | | | | | | [address] | | | | + + + + + + + + | Specimen | + + | | + + + +---------+ + + | Performing | Address | City/State/Zipcode | Phone Number | | Organization | | | | + +---------+ + + | EXTERNAL LAB | | | | + +---------+ + + POC AVASERAFIN, CG8, Arterial (08/19/2014 8:48 AM PDT) + + + + + + | Component | Value | Ref Range | Performed | Pathologist | | | | | At | Signature | + + + + + + | PH ART | 7.386Comment: Testing | 7.350 - 7.450 | EXTERNAL | | | | performed at [facility];[address] | | LAB | | | | [address] | | | | | | [address] | | | | + + + + + + | PCO2 ART | 52 (H)Comment: Testing | 35 - 45 mmHg | EXTERNAL | | | | performed at [facility];[address] | | LAB | | | | [address] | | | | | | [address] | | | | + + + + + + | PO2 ART | 489 (H)Comment: Testing | 80 - 105 mmHg | EXTERNAL | | | | performed at [facility];[address] | | LAB | | | | [address] | | | | | | [address] | | | | + + + + + + | HCO3 ART | 31 (H)Comment: Testing | 22 - 26 mmol/L | EXTERNAL | | | | performed at [facility];[address] | | LAB | | | | [address] | | | | | | [address] | | | | + + + + + + | POC | 32 (H)Comment: Testing | 23 - 27 mEq/L | EXTERNAL | | | APPEARANCE | performed at [facility];[address] | | LAB | | | UA | [address] | | | | | | [address] | | | | + + + + + + | Base | 6 (H)Comment: Testing | 0 - 3 mEq/L | EXTERNAL | | | Excess, | performed at [facility];[address] | | LAB | | | Arterial | [address];[place] | | | | | | [address] | | | | + + + + + + | O2 SAT ART | 100 (H)Comment: Testing | 95 - 98 % | EXTERNAL | | | | performed at [facility];[address] | | LAB | | | | [address];[place] | | | | | | [address] | | | | + + + + + + | Sodium, POC | 137Comment: Testing | 135 - 145 mEq/L | EXTERNAL | | | | performed at [facility];[address] | | LAB | | | [address];[place] | | | | | | [address] | | | | + + + + + + | Potassium, | 4.4Comment: Testing | 3.5 - 5.0 mEq/L | EXTERNAL | | | POC | performed at [facility];[address] | | LAB | | | [address];[place] | | | | | | [address] | | | | + + + + + + | Ionized | 1.13Comment: Testing | 1.12 - 1.32 | EXTERNAL | | | Calcium, | performed at [facility];888 | mmol/L | LAB | | | POC | [address];[place] | | | | | | [address] | | | | + + + + + + | Glucose, | 149 (H)Comment: Testing | 65 - 99 mg/dL | EXTERNAL | | | POC | performed at [facility];[address] | | LAB | | | | [address];[place] | | | | | | [address] | | | | + + + + + + | Hematocrit, | 43Comment: Testing | 40.0 - 50.0 % | EXTERNAL | | | POC | performed at [facility];[address] | | LAB | | | | [address];[place] | | | | | | [address] | | | | + + + + + + | Hemoglobin, | 14.6Comment: Testing | 13.7 - 16.7 | EXTERNAL | | | POC | performed at [facility];888 | g/dL | LAB | | | | [address];[place], [place] | | | | | | [address] | | | | + + + + + + + + | Specimen | + + | | + + + +---------+ + + | Performing | Address | City/State/Zipcode | Phone Number | | Organization | | | | + +---------+ + + | EXTERNAL LAB | | | | + +---------+ + + documented in this encounter Visit Diagnoses + + | Diagnosis | + + | CAD (coronary artery disease) Coronary atherosclerosis of unspecified type of vessel, | | [place] tribe or graft | + + documented in this encounter
--- OUTSIDE RECORDS SUMMARY | ~2019-10-12 | XMS | Encounter Summary ---
Demographics + + + | Address | [address] | | | [place] [address] | + + + | Home Phone | | + + + | Preferred Language | Unknown | + + + | Marital Status | | + + + | Faith Affiliation | 1013 | + + + | Race | Unknown | + + + | Ethnic Group | Unknown | + + + Author + + + | Author | [facility] | | | and [place] | + + + | Organization | [facility] | | | and [...] Team Providers + +------+ + | Care Spot Sprayer Name | Role | Phone | + +------+ + | Henry Arteaga MD | PCP | | + +------+ + Encounter Details +--------+ + + + + | Date | Type | Department | Care Team | Description | +--------+ + + + + | 04/29/ | Orders Only | [facility] | Conversion | | | 2019 | | CONVERSION DEP [address] | Transaction, | | | | | [address] | Provider Unknown | | | | | [place], [place] | [phone] | | | | | [address] | | | | | | [phone] | | | +--------+ + + + [...]
--- OUTSIDE RECORDS SUMMARY | ~2019-10-12 | XMS | Encounter Summary ---
Demographics + + + | Address | [address] | | | [place] [address] | + + + | Home Phone | | + + + | Preferred Language | Unknown | + + + | Marital Status | | + + + | Evangelical Affiliation | 1013 | + + + | Race | Unknown | + + + | Ethnic Group | Unknown | + + + Author + + + | Author | [facility] | | | and [place] | + + + | Organization | [facility] | | | [...] Team Providers + +------+ + | Care Change Control Specialist Name | Role | Phone | + +------+ + | Henry Arteaga MD | PCP | | + +------+ + Encounter Details +--------+ + + + + | Date | Type | Department | Care Team | Description | +--------+ + + + + | 11/22/ | Orders Only | [facility] | Conversion | | | 2017 | | CONVERSION DEP [address] | Transaction, | | | | | [address] | Provider Unknown | | | | | [place], [place] | [phone] | | | | | [address] | | | | | | [phone] | | | +--------+ + + + [...]
--- OUTSIDE RECORDS SUMMARY | ~2019-10-12 | XMS | Encounter Summary ---
Demographics + + + | Address | [address] | | | [place] [address] | + + + | Home Phone | | + + + | Preferred Language | Unknown | + + + | Marital Status | | + + + | Scientologist Affiliation | 1013 | + + + | Race | Unknown | + + + | Ethnic Group | Unknown | + + + Author + + + | Author | [facility] | | | and [place] | + + + | Organization | [facility] | | | [...] Team Providers + +------+ + | Care Deputy Manager Name | Role | Phone | + +------+ + | Demetrius Melgar MD | PCP | | + +------+ + Encounter Details +--------+ + + + + | Date | Type | Department | Care Team | Description | +--------+ + + + + | 12/05/ | Orders Only | [facility] | Elinor Cantu | | | 2017 | | CONVERSION [address] | [address] | | | | | [address] | [address] | | | | | [place], [place] | [place] [address] | | | | | [address] | [phone] | | | | | [phone] | | | +--------+ + + + [...] + +--------+ + + + | ECHO INTERPRETATION | Routin | 12/05/2016 | | Results for this | | OF OUTSIDE FILMS | e | 5:15 PM | | procedure are in the | | | | PDT | | results section. | + +--------+ + + + documented in this encounter Results ECHO Interpretation of Outside Films (12/05/2016 5:15 PM PDT) + + | Specimen | + + | | + + + + + | Impressions | Performed At | + + + | 1. The left ventricle is normal in size, wall thickness and | | | hyperdynamic systolic function EF >70%. 2. The diastolic filling | | | pattern indicates impaired relaxation consistent with mild dysfunction | | | (Grade I). 3. The right ventricle is normal in size and function. | | | 4. Aortic valve is trileaflet, mildly calcified, immobile right | | | coronary cusp and mild stenosis. 5. There is no pericardial effusion. | | + + + + + + | Narrative | Performed At | + + + | Patient Name: GILL PEMBERTON Date of : 1950 | | | Performing Physician: Miguel Barrera | | | | | | INDICATIONS cad s/p cabg, hx tia, htn per Elinor | | | [facility] Cantu CONCLUSIONS 1. The left ventricle is | | | normal in size, wall thickness and hyperdynamic systolic function EF | | | >70%. 2. The diastolic filling pattern indicates impaired relaxation | | | consistent with mild dysfunction (Grade I). 3. The right ventricle is | | | normal in size and function. 4. Aortic valve is trileaflet, mildly | | | calcified, immobile right coronary cusp and mild stenosis. 5. There | | | is no pericardial effusion. FINDINGS -------- ECG rhythm: Sinus | | | rhythm. Study: A 2-dimensional transthoracic echocardiogram with | | | m-mode, spectral and color flow Doppler was perfomed. Study: This was | | | a technically adequate study. Left Ventricle: Left ventricular | | | systolic function is hyperdynamic with an estimated EF of >70%. Left | | | Ventricle: The left ventricle cavity size is normal. Left Ventricle: | | | Left ventricular wall thickness is normal. Left Ventricle: The | | | diastolic filling pattern indicates impaired relaxation consistent | | | with mild dysfunction (Grade I). Right Ventricle: The right ventricle | | | is normal in size and function. Left Atrium: The left atrium is | | | normal in size. Right Atrium: The right atrium is normal in size. | | | Aortic Valve: Aortic valve is trileaflet, immobile right coronary | | | cusp. Aortic Valve: The aortic valve is mildly calcified. Aortic | | | Valve: There is mild aortic regurgitation. Aortic Valve: The aortic | | | pressure half-time by doppler is 833ms. Aortic Valve: Mild aortic | | | stenosis with peak/mean pressure gradient of 23.25mmHg / 10.76mmHg, | | | the aortic valve area by continuity equation is 1.8cm . Mitral | | | Valve: No mitral regurgitation. Mitral Valve: Mild mitral annular | | | calcification present. Tricuspid Valve: The tricuspid valve appears | | | structurally normal. Tricuspid Valve: Trace tricuspid regurgitation | | | present. Tricuspid Valve: There is no evidence of pulmonary | | | hypertension. Tricuspid Valve: The right ventricular systolic | | | pressure (pulmonary artery systolic pressure), as measured by Doppler, | | | is 18.76mmHg. Pulmonic Valve: The pulmonic valve was not well | | | visualized. Pulmonic Valve: Trace pulmonic regurgitation. | | | Pericardium: There is no pericardial effusion. Pericardium: No | | | pleural effusion seen. IVC/Hepatic Veins: The inferior vena cava is | | | normal in size and collapses > 50 % with sniff, indicating normal | | | central venous pressures. Aorta: The aortic root, ascending aorta are | | | within normal dimensions. MEASUREMENTS Ao sinus: | | | 3.60 cm LA Diam: 4.67 cm EDV(Teich): 110.45 ml IVSd: | | | 0.99 cm LVIDd: 4.85 cm LVPWd: 0.75 cm LVOT Area: 3.87 cm2 | | | LVOT Diam: 2.22 cm %FS: 28.68 % EF(Teich): 55.11 % | | | ESV(Teich): 49.57 ml LVIDs: 3.46 cm SV(Teich): 60.88 ml | | | LVEF MOD A2C: 57.68 % SV MOD A2C: 83.82 ml LVEF MOD A4C: | | | 58.76 % SV MOD A4C: 93.00 ml EF Biplane: 60.95 % LVEDV MOD | | | BP: 163.32 ml LVESV MOD BP: 63.76 ml LVEDV MOD A2C: 145.31 | | | ml LVLd A2C: 7.71 cm LVEDV MOD A4C: 158.28 ml LVLd A4C: | | | 9.01 cm LVESV MOD A2C: 61.49 ml LVLs A2C: 6.90 cm LVESV MOD | | | A4C: 65.27 ml LVLs A4C: 7.02 cm LAESV(A-L): 61.11 ml LAESV | | | Index (A-L): 26.57 ml/m2 LAAs A2C: 16.15 cm2 LAESV A-L A2C: | | | 49.20 ml LALs A2C: 4.50 cm LAAs A4C: 20.06 cm2 LAESV A-L | | | A4C: 65.30 ml LALs A4C: 5.23 cm RAAs: 16.46 cm2 RAESV A-L: | | | 45.45 ml RAESV MOD: 43.31 ml RALs: 5.06 cm TAPSE: 1.61 | | | cm AR Dec Lenoir: 1.45 m/s2 AR Dec Time: 2871.36 ms AR maxPG: | | | 69.72 mmHg AR PHT: 832.69 ms AR Vmax: 4.17 m/s AV maxPG: | | | 23.25 mmHg AV meanP.76 mmHg AV Vmax: 2.41 m/s AV | | | Vmean: 1.48 m/s AV VTI: 43.31 cm BERT Vmax: 1.62 cm2 BERT | | | (VTI): 1.81 cm2 AVAI Vmax: 0.00 cm2/m2 AVAI (VTI): 0.00 | | | cm2/m2 LVOT maxP.07 mmHg LVOT meanP.28 mmHg LVSI | | | Dopp: 34.19 ml/m2 LVSV Dopp: 78.64 ml LVOT Vmax: 1.00 m/s | | | LVOT Vmean: 0.70 m/s LVOT VTI: 20.31 cm MV A Clint: 0.53 m/s | | | MV DecT: 248.57 ms MV E Clint: 0.62 m/s MV E/A Ratio: 1.17 | | | MV PHT: 72.08 ms MVA By PHT: 3.05 cm2 Septal e': 0.03 m/s | | | Septal E/e': 16.35 Lateral e': 0.07 m/s Lateral E/e': 7.90 | | | RAP: 5 mmHg RVSP: 18.75 mmHg TR maxP.75 mmHg TR | | | Vmax: 1.85 m/s Mayonnaise Mixer: MER Authenticated by: Miguel | | | Holly Report Date/Time: 12-28-2016 06:51:48 | | + + + + + | Procedure Note | + + | Francesco Reyes Conversion - 11/27/2018 7:43 PM PDT Patient Name: James PEMBERTON of | | : 1950 Performing Physician: Miguel | | Holly INDICATIONS------ | | -----cad s/p cabg, hx tia, htn per CHU Barrientos CONCLUSIONS 1. The | | left ventricle is normal in size, wall thickness and hyperdynamic systolic function EF | | >70%.2. The diastolic filling pattern indicates impaired relaxation consistent with mild | | dysfunction (Grade I).3. The right ventricle is normal in size and function.4. Aortic | | valve is trileaflet, mildly calcified, immobile right coronary cusp and mild stenosis.5. | | There is no pericardial effusion. FINDINGS--------ECG rhythm: Sinus rhythm.Study: A | | 2-dimensional transthoracic echocardiogram with m-mode, spectral and color flow Doppler | | was perfomed.Study: This was a technically adequate study.Left Ventricle: Left | | ventricular systolic function is hyperdynamic with an estimated EF of >70%.Left | | Ventricle: The left ventricle cavity size is normal.Left Ventricle: Left ventricular | | wall thickness is normal.Left Ventricle: The diastolic filling pattern indicates | | impaired relaxation consistent with mild dysfunction (Grade I).Right Ventricle: The | | right ventricle is normal in size and function.Left Atrium: The left atrium is normal in | | size.Right Atrium: The right atrium is normal in size.Aortic Valve: Aortic valve is | | trileaflet, immobile right coronary cusp.Aortic Valve: The aortic valve is mildly | | calcified.Aortic Valve: There is mild aortic regurgitation.Aortic Valve: The aortic | | pressure half-time by doppler is 833ms.Aortic Valve: Mild aortic stenosis with peak/mean | | pressure gradient of 23.25mmHg / 10.76mmHg, the aortic valve area by continuity | | equation is 1.8cm .Mitral Valve: No mitral regurgitation.Mitral Valve: Mild mitral | | annular calcification present.Tricuspid Valve: The tricuspid valve appears structurally | | normal.Tricuspid Valve: Trace tricuspid regurgitation present.Tricuspid Valve: There is | | no evidence of pulmonary hypertension.Tricuspid Valve: The right ventricular systolic | | pressure (pulmonary artery systolic pressure), as measured by Doppler, is | | 18.76mmHg.Pulmonic Valve: The pulmonic valve was not well visualized.Pulmonic Valve: | | Trace pulmonic regurgitation.Pericardium: There is no pericardial effusion.Pericardium: | | No pleural effusion seen.IVC/Hepatic Veins: The inferior vena cava is normal in size | | and collapses > 50 % with sniff, indicating normal central venous pressures.Aorta: The | | aortic root, ascending aorta are within normal dimensions. MEASUREMENTS Ao | | sinus: 3.60 cmLA Diam: 4.67 cmEDV(Teich): 110.45 mlIVSd: 0.99 cmLVIDd: 4.85 | | cmLVPWd: 0.75 cmLVOT Area: 3.87 [id number] Diam: 2.22 cm%FS: 28.68 %EF(Teich): | | 55.11 %ESV(Teich): 49.57 mlLVIDs: 3.46 cmSV(Teich): 60.88 mlLVEF MOD A2C: 57.68 | | %SV MOD A2C: 83.82 mlLVEF MOD A4C: 58.76 %SV MOD A4C: 93.00 mlEF Biplane: 60.95 | | %LVEDV MOD BP: 163.32 mlLVESV MOD BP: 63.76 mlLVEDV MOD A2C: 145.31 mlLVLd A2C: | | 7.71 cmLVEDV MOD A4C: 158.28 mlLVLd A4C: 9.01 cmLVESV MOD A2C: 61.49 mlLVLs A2C: | | 6.90 cmLVESV MOD A4C: 65.27 mlLVLs A4C: 7.02 cmLAESV(A-L): 61.11 mlLAESV Index | | (A-L): 26.57 ml/m2LAAs A2C: 16.15 [id number] A-L A2C: 49.20 mlLALs A2C: 4.50 | | cmLAAs A4C: 20.06 [id number] A-L A4C: 65.30 mlLALs A4C: 5.23 cmRAAs: 16.46 | | [id number] A-L: 45.45 mlRAESV MOD: 43.31 mlRALs: 5.06 cmTAPSE: 1.61 cmAR Dec | | Lenoir: 1.45 m/s2AR Dec Time: 2871.36 msAR maxP.72 mmHgAR PHT: 832.69 msAR | | Vmax: 4.17 m/Guillermo maxP.25 mmHgAV meanP.76 mmHgAV Vmax: 2.41 m/Guillermo | | Vmean: 1.48 m/Guillermo VTI: 43.31 cmAVA Vmax: 1.62 cm2AVA (VTI): 1.81 [id number] Vmax: | | 0.00 cm2/m2AVAI (VTI): 0.00 cm2/m2LVOT maxP.07 mmHgLVOT meanP.28 mmHgLVSI | | Dopp: 34.19 ml/m2LVSV Dopp: 78.64 mlLVOT Vmax: 1.00 m/sLVOT Vmean: 0.70 m/sLVOT | | VTI: 20.31 cmMV A Clint: 0.53 m/sMV DecT: 248.57 msMV E Clint: 0.62 m/sMV E/A | | Ratio: 1.17MV PHT: 72.08 msMVA By PHT: 3.05 [id number] e': 0.03 m/sSeptal E/e': | | 16.35Lateral e': 0.07 m/sLateral E/e': 7.90RAP: 5 mmHgRVSP: 18.75 mmHgTR maxPG: | | 13.75 mmHgTR Vmax: 1.85 m/s Mayonnaise Mixer: DBSAuthenticated by: Miguel | | [facility] Date/Time: 12-28-2016 06:51:48 IMPRESSION: 1. The left ventricle is | | normal in size, wall thickness and hyperdynamic systolic function EF >70%.2. The | | diastolic filling pattern indicates impaired relaxation consistent with mild dysfunction | | (Grade I).3. The right ventricle is normal in size and function.4. Aortic valve is | | trileaflet, mildly calcified, immobile right coronary cusp and mild stenosis.5. There is | | no pericardial effusion. | |LVIDd: 4.85 cm | |LVPWd: 0.75 cm | |LVOT Area: 3.87 cm2 | |LVOT Diam: 2.22 cm | |%FS: 28.68 % | |EF(Teich): 55.11 % | |ESV(Teich): 49.57 ml | |LVIDs: 3.46 cm | |SV(Teich): 60.88 ml | |LVEF MOD A2C: 57.68 % | |SV MOD A2C: 83.82 ml | |LVEF MOD A4C: 58.76 % | |SV MOD A4C: 93.00 ml | |EF Biplane: 60.95 % | |LVEDV MOD BP: 163.32 ml | |LVESV MOD BP: 63.76 ml | |LVEDV MOD A2C: 145.31 ml | |LVLd A2C: 7.71 cm | |LVEDV MOD A4C: 158.28 ml | |LVLd A4C: 9.01 cm | |LVESV MOD A2C: 61.49 ml | |LVLs A2C: 6.90 cm | |LVESV MOD A4C: 65.27 ml | |LVLs A4C: 7.02 cm | |LAESV(A-L): 61.11 ml | |LAESV Index (A-L): 26.57 ml/m2 | |LAAs A2C: 16.15 cm2 | |LAESV A-L A2C: 49.20 ml | |LALs A2C: 4.50 cm | |LAAs A4C: 20.06 cm2 | |LAESV A-L A4C: 65.30 ml | |LALs A4C: 5.23 cm | |RAAs: 16.46 cm2 | |RAESV A-L: 45.45 ml | |RAESV MOD: 43.31 ml | |RALs: 5.06 cm | |TAPSE: 1.61 cm | |AR Dec Len[place]: 1.45 m/s2 | |AR Dec Time: 2871.36 ms | |AR maxP.72 mmHg | |AR PHT: 832.69 ms | |AR Vmax: 4.17 m/s | |AV maxP.25 mmHg | |AV meanP.76 mmHg | |AV Vmax: 2.41 m/s | |AV Vmean: 1.48 m/s | |AV VTI: 43.31 cm | |BERT Vmax: 1.62 cm2 | |BERT (VTI): 1.81 cm2 | |AVAI Vmax: 0.00 cm2/m2 | |AVAI (VTI): 0.00 cm2/m2 | |LVOT maxP.07 mmHg | |LVOT meanP.28 mmHg | |LVSI Dopp: 34.19 ml/m2 | |LVSV Dopp: 78.64 ml | |LVOT Vmax: 1.00 m/s | |LVOT Vmean: 0.70 m/s | |LVOT VTI: 20.31 cm | |MV A Clint: 0.53 m/s | |MV DecT: 248.57 ms | |MV E Clint: 0.62 m/s | |MV E/A Ratio: 1.17 | |MV PHT: 72.08 ms | |MVA By PHT: 3.05 cm2 | |Septal e': 0.03 m/s | |Septal E/e': 16.35 | |Lateral e': 0.07 m/s | |Lateral E/e': 7.90 | |RAP: 5 mmHg | |RVSP: 18.75 mmHg | |TR maxP.75 mmHg | |TR Vmax: 1.85 m/s | | | |Mayonnaise Mixer: DBS | |Authenticated by: Miguel Barrera | |Report Date/Time: 12-28-2016 06:51:48 | | | |IMPRESSION: | |1. The left ventricle is normal in size, wall thickness and hyperdynamic systolic function EF >70%. | |2. The diastolic filling pattern indicates impaired relaxation consistent with mild dysfunc tion (Grade I). | |3. The right ventricle is normal in size and function. | |4. Aortic valve is trileaflet, mildly calcified, immobile right coronary cusp and mild sten osis. | |5. There is no pericardial effusion. | + + documented in this encounter Visit Diagnoses Not on filedocumented in this encounter"
--- OUTSIDE RECORDS SUMMARY | ~2019-10-12 | XMS | Encounter Summary ---
Demographics + + + | Address | [address] | | | [place] [address] | + + + | Home Phone | | + + + | Preferred Language | Unknown | + + + | Marital Status | | + + + | Evangelical Affiliation | 1013 | + + + | Race | Unknown | + + + | Ethnic Group | Unknown | + + + Author + + + | Author | [facility] | | | and [place] | + + + | Organization | [facility] | | [...] Team Providers + +------+ + | Care Natural Science Curator Name | Role | Phone | + +------+ + | Henry Arteaga MD | PCP | | + +------+ + Encounter Details +--------+ + + + + | Date | Type | Department | Care Team | Description | +--------+ + + + + | 08/11/ | Orders Only | [facility] | Conversion | | | 2015 | | CONVERSION [address]P [address] | Transaction, | | | | | [address] | Provider Unknown | | | | | [place], [place] | [phone] | | | | | [address] | | | | | | [phone] | | | +--------+ + + + [...]
--- OUTSIDE RECORDS SUMMARY | ~2019-10-12 | XMS | Encounter Summary ---
Demographics + + + | Address | [address] | | | [place] [address] | + + + | Home Phone | | + + + | Preferred Language | Unknown | + + + | Marital Status | | + + + | Shinto Affiliation | 1013 | + + + | Race | Unknown | + + + | Ethnic Group | Unknown | + + + Author + + + | Author | [facility] | | | and [place] | + + + | Organization | [facility] | | [...] Team Providers + +------+ + | Care Referral And Information Aide Name | Role | Phone | + +------+ + | Henry Arteaga MD | PCP | | + +------+ + Reason for Visit + + + | Reason | Comments | + + + | Medication Refill | | + + + Encounter Details +--------+--------+ + + + | Date | Type | Department | Care Team | Description | +--------+--------+ + + + | 06/16/ | Refill | [facility] | Srinivasan Felix MD | Medication Refill | | 2020 | | NEUROSURGERY [address] | [address] | | | | | [place] [address] | [facility] | | | | | [place], [place] | [place], [place] | | | | | [address] | [address] | | | | | [phone] | [phone] | | | | | | | | +--------+--------+ + + + Social History + +-------+ [...]
--- OUTSIDE RECORDS SUMMARY | ~2019-10-12 | XMS | Encounter Summary ---
Demographics + + + | Address | [address] | | | [place] [address] | + + + | Home Phone | | + + + | Preferred Language | Unknown | + + + | Marital Status | | + + + | Gnosticism Affiliation | 1013 | + + + | Race | Unknown | + + + | Ethnic Group | Unknown | + + + Author + + + | Author | [facility] | | | and [place] | + + + | Organization | [facility] | | [...] Team Providers + +------+ + | Care Welt Maker Name | Role | Phone | + +------+ + | Demetrius Melgar MD | PCP | | + +------+ + Encounter Details +--------+ + + + + | Date | Type | Department | Care Team | Description | +--------+ + + + + | 08/05/ | Orders Only | [facility] | Conversion | | | 2014 | | [facility] [place] | Transaction, | | | | | [address] | Provider Unknown | | | | | [place] | [phone] | | | | | [address] | | | | | | [phone] | | | +--------+ + + + [...] +--------+ + + + | EXTERNAL LAB: [facility] | Routin | 08/05/2014 | | Results for this | | | e | 8:58 AM | | procedure are in the | | | | PDT | | results section. | + +--------+ + + + | COMPREHENSIVE | Routin | 08/05/2014 | | Results for this | | METABOLIC PANEL | e | 8:58 AM | | procedure are in the | | | | PDT | | results section. | + +--------+ + + + documented in this encounter Results External Lab: [facility] (08/05/2014 8:58 AM PDT) + + + + + + | Component | Value | Ref Range | Performed | Pathologist | | | | | At | Signature | + + + + + + | WBC | 7.8 | 4.5 - 11.0 10 | EXTERNAL | | | | | | LAB | | + + + + + + | Red Blood | 4.64 | 4.3 - 5.7 10 | EXTERNAL | | | Cells | | | LAB | | | Counted | | | | | + + + + + + | Hemoglobin | 15.8 | 13.5 - 18.0 | EXTERNAL | | | | | g/dL | LAB | | + + + + + + | Hematocrit, | 47.1 | 41 - 50 % | EXTERNAL | | | POC | | | LAB | | + + + + + + | MCV | 101.5 (A) | 81 - 99 fL | EXTERNAL | | | | | | LAB | | + + + + + + | MCH | 34 (A) | 27 - 33 pg | EXTERNAL | | | | | | LAB | | + + + + + + | MCHC | 34 | 30 - 36 g/dL | EXTERNAL | | | | | | LAB | | + + + + + + | Platelet | 195 | 140 - 440 K/ L | EXTERNAL | | | Count | | | LAB | | | Plasma | | | | | + + + + + + | RDW-CV | 13.3 | 10.5 - 15.0 % | EXTERNAL | | | | | | LAB | | + + + + + + | MPV | | fL | EXTERNAL | | | | | | LAB | | + + + + + + | Differentia | | | EXTERNAL | | | l Type | | | LAB | | + + + + + + | % Segmented | 67.3 | 39 - 80 % | EXTERNAL | | | | | | LAB | | | Neutrophils | | | | | + + + + + + | % | 20.5 (A) | 24 - 44 % | EXTERNAL | | | Lymphocytes | | | LAB | | + + + + + + | % Monocytes | 8.0 | 0 - 12 % | EXTERNAL | | | | | | LAB | | + + + + + + | % | 3.6 | 0 - 6 % | EXTERNAL | | | Eosinophils | | | LAB | | + + + + + + | % Basophils | 0.6 | 0 - 2 % | EXTERNAL | | | | | | LAB | | + + + + + + | Absolute | | / L | EXTERNAL | | | Segmented | | | LAB | | | Neutrophils | | | | | + + + + + + | Absolute | | / L | EXTERNAL | | | Lymphocytes | | | LAB | | + + + + + + | Absolute | | / L | EXTERNAL | | | Monocytes | | | LAB | | + + + + + + | Absolute | | / L | EXTERNAL | | | Eosinophils | | | LAB | | + + + + + + | Absolute | | / L | EXTERNAL | | | Basophils | | | LAB | | + + + + + + + + | Specimen | + + | Blood specimen | | (specimen) | + + + +---------+ + + | Performing | Address | City/State/Zipcode | Phone Number | | Organization | | | | + +---------+ + + | EXTERNAL LAB | | | | + +---------+ + + Comprehensive Metabolic Panel (08/05/2014 8:58 AM PDT) + +---------+ + + + | Component | Value | Ref Range | Performed | Pathologist | | | | | At | Signature | + +---------+ + + + | Glucose, | 150 (A) | 70 - 100 mg/dL | EXTERNAL | | | Fasting | | | LAB | | + +---------+ + + + | BUN | 20 | 6 - 23 mg/dL | EXTERNAL | | | | | | LAB | | + +---------+ + + + | Creatinine | 1.00 | 0.70 - 1.25 | EXTERNAL | | | | | mg/dL | LAB | | + +---------+ + + + | BUN/Creatin | 20.0 | 6.0 - 28.6 | EXTERNAL | | | ine Ratio | | | LAB | | + +---------+ + + + | Calcium | 9.5 | 8.4 - 10.2 | EXTERNAL | | | | | mg/dL | LAB | | + +---------+ + + + | Protein, | 7.0 | 6.0 - 8.0 g/dL | EXTERNAL | | | Total | | | LAB | | + +---------+ + + + | Albumin | 4.3 | 3.5 - 5.0 | EXTERNAL | | | | | | LAB | | + +---------+ + + + | Globulin | 2.7 | 1.8 - 3.5 | EXTERNAL | | | | | | LAB | | + +---------+ + + + | A/G Ratio | 1.6 | 1.1 - 2.4 | EXTERNAL | | | | | | LAB | | + +---------+ + + + | Bilirubin | 0.4 | 0.0 - 1.2 mg/dL | EXTERNAL | | | Total | | | LAB | | + +---------+ + + + | ALP, | 42 | 30 - 128 | EXTERNAL | | | External | | | LAB | | + +---------+ + + + | ALT | 19 | 7 - 52 U/L | EXTERNAL | | | | | | LAB | | + +---------+ + + + | AST | 20 | 13 - 39 U/L | EXTERNAL | | | | | | LAB | | + +---------+ + + + | Na | 140 | 132 - 143 | EXTERNAL | | | | | mmol/L | LAB | | + +---------+ + + + | K | 4.8 | 3.6 - 5.1 | EXTERNAL | | | | | mmol/L | LAB | | + +---------+ + + + | Cl | 100 | 95 - 112 mmol/L | EXTERNAL | | | | | | LAB | | + +---------+ + + + | CO2 | 26 | 19 - 31 mmol/L | EXTERNAL | | | | | | LAB | | + +---------+ + + + | Anion Gap | 18.8 | 7 - 21 mmol/L | EXTERNAL | | | | | | LAB | | + +---------+ + + + | Estimated | 75 | 60 mg/dL | EXTERNAL | | | GFR | | | LAB | | + +---------+ + + + + + | Specimen [...]
--- OUTSIDE RECORDS SUMMARY | ~2019-10-12 | XMS | Encounter Summary ---
Demographics + + + | Address | [address] | | | [place] [address] | + + + | Home Phone | | + + + | Preferred Language | Unknown | + + + | Marital Status | | + + + | Muslim Affiliation | 1013 | + + + | Race | Unknown | + + + | Ethnic Group | Unknown | + + + Author + + + | Author | [facility] | | | and [place] | + + + | Organization | [facility] | | | and [...] Team Providers + +------+ + | Care Flanging Roll Operator Name | Role | Phone | + +------+ + | Henry Arteaga MD | PCP | | + +------+ + Encounter Details +--------+ + + + + | Date | Type | Department | Care Team | Description | +--------+ + + + + | 05/03/ | Orders Only | [facility] | Srinivasan Felix MD | | | 2019 | | NEUROSURGERY [address] | [address] | | | | | [address] | [address] | | | | | [place], [place] | [place] | | | | | [id number] | [id number] | | | | | [phone] | | | | | | | | +--------+ + + + [...]
--- OUTSIDE RECORDS SUMMARY | ~2019-10-12 | XMS | Encounter Summary ---
Demographics + + + | Address | [address] | | | [place] [address] | + + + | Home Phone | | + + + | Preferred Language | Unknown | + + + | Marital Status | | + + + | Roman Catholic Affiliation | 1013 | + + + | Race | Unknown | + + + | Ethnic Group | Unknown | + + + Author + + + | Author | [facility] | | | and [place] | + + + | Organization | [facility] | | [...] Team Providers + +------+ + | Care Pastrycook'S Assistant Name | Role | Phone | + +------+ + PCP | Unavailable | + +------+ + Encounter Details +--------+ + + + + | Date | Type | Department | Care Team | Description | +--------+ + + + + | 02/13/ | Hospital | [facility] | Conversion | Pain | | 2015 | Encounter | CONVERSION [address] | Transaction, | | | | | [address] | Provider Unknown | | | | | [place] | [phone] | | | | | [address] | | | | | | [phone] | | | +--------+ + + + [...] CT CHEST WO CONTRAST | Routin | 01/05/2015 | | Results for this | | | e | 9:40 AM | | procedure are in the | | | | PDT | | results section. | + +--------+ + + + documented in this encounter Results CT Chest wo Contrast (01/05/2015 9:40 AM PDT) + + | Specimen | + + | | + + + + + | Narrative | Performed At | + + + | This is a non-reportable procedure without a radiologist report and | | | is used for image storage only | | + + + + + | Procedure Note | + + | Francesco Reyes Lius A - 11/21/2018 8:32 AM PDT This is a non-reportable procedure | | without a radiologist report and isused for image storage only | + + documented in this encounter Visit Diagnoses + + | Diagnosis | + + | Pain Generalized pain | + + documented in this encounter"
--- OUTSIDE RECORDS SUMMARY | ~2019-10-12 | XMS | Encounter Summary ---
Demographics + + + | Address | [address] | | | [place] [address] | + + + | Home Phone | | + + + | Preferred Language | Unknown | + + + | Marital Status | | + + + | Anglican Affiliation | 1013 | + + + | Race | Unknown | + + + | Ethnic Group | Unknown | + + + Author + + + | Author | [facility] | | | and [place] | + + + | Organization | [facility] | | [...] Team Providers + +------+ + | Care Elevator Erector Helper Name | Role | Phone | + +------+ + | Henry Arteaga MD | PCP | | + +------+ + Encounter Details +--------+ + + + + | Date | Type | Department | Care Team | Description | +--------+ + + + + | 04/25/ | Orders Only | [facility] | Conversion | | | 2018 | | CONVERSION [address] | Transaction, | | | | | [address] | Provider Unknown | | | | | [place], [place] | [phone] | | | | | [phone] | | | | | | [phone] | | | +--------+ + + + [...]
--- OUTSIDE RECORDS SUMMARY | ~2019-10-12 | XMS | Encounter Summary ---
Demographics + + + | Address | [address] | | | [place] [address] | + + + | Home Phone | | + + + | Preferred Language | Unknown | + + + | Marital Status | | + + + | Cheondoism Affiliation | [id number] | + + + | Race | Unknown | + + + | Ethnic Group | Unknown | + + + Author + + + | Author | [facility] | | | and [place] | + + + | Organization | [facility] | | | [...] Team Providers + +------+ + | Care Health Sciences Program Coordinator Name | Role | Phone | + +------+ + PCP | Unavailable | + +------+ + Encounter Details +--------+ + + + + | Date | Type | Department | Care Team | Description | +--------+ + + + + | 08/11/ | Hospital | [facility] | Conversion | Angina at rest | | 2015 | Encounter | [facility]ICAL CENTER | Transaction, | ([facility]); Positive | | | | CLINICAL DECISION | Provider Unknown | cardiac stress test | | | | [address] | [phone] | | | | | [place], [place] | | | | | | [phone] | Ousmane Yates, | | | | | [phone] | MD [address] | | | | | | [place] [address] | | | | | | [phone] | | | | | | | [...] Progress Notes Conversion Transaction, Provider Unknown - 08/11/2014 5:36 PM PDTFormatting of this note m ight be different from the original. Nurse Progress Note by Elizabeth Patel RN at 08/11/14 1736 Author: Elizabeth Patel RN Service: (none) Author Type: Registered Nurse Filed: 08/11/14 1742 Date of Service: 08/11/14 1736 Status: Addendum Technical Support Coordinator: Elizabeth Patel RN (Registered Nurse) Related Notes: Original Note by Alicia Richter (Gas Maker) filed at 08/11/14 1740 DC Patient in Wheelchair with . Patient and stated understanding of New medicati on and discharge instructions. Patient stated they had no questions and will schedule an apt . Alicia Richter 08/11/2014 5:40 PM Reviewed. Elizabeth Patel RN 08/11/2014 5:42 PM docume nted in this encounter H&P Notes Ousmane Yates MD - 08/11/2014 12:36 PM PDTFormatting of this note might be diffe rent from the original. H&P by Ousmane Yates MD at 08/11/14 1236 Author: Ousmane Yates MD Service: Cardiology Author Type: Physician Filed: 08/16/14 1831 Date of Service: 08/11/14 1236 Status: Signed Technical Support Coordinator: Ousmane Yates MD (Physician) Related Notes: Original Note by Ousmane Yates MD (Physician) filed at 08/11/14 1246 [facility] Service: Cardiology Admission History & Physical Date of Admission: 08/11/2014 Requesting Physician: Eric Abdalla MD, Cardiology Reason for Admission: Abnormal stress test, Angina History Obtained From: patient, chart review CHIEF COMPLAINT: Chest pain, neck pain HISTORY OF PRESENT ILLNESS The patient is a 64 y.o. male with history of hypertension, hyperlipidemia, obesity, and a prior TIA and carotid artery disease status post remote right carotid endarterectomy who was referred for coronary angiogram by patient access registrar, Dr. Eric Abdalla. The patient had initia lly presented with anginal symptoms with neck pains on exertion. The patient was referred fo r stress test. The patient had a nuclear stress test that was abnormal. At this time I do no t have a copy of the stress test results however we will try to get the records of the stres s test. Otherwise the patient stated that most recently his neck pains have become better. C urrently he denies any exertional shortness of breath, orthopnea, paroxysmal nocturnal dyspn ea, palpitations, lightheadedness, presyncope, or syncope. The patient denies a history of a sthma or bronchitis although we can hear mild wheezing on exam today. The patient stated that he had a left footdrop following back surgery in the past. REVIEW OF SYSTEMS Negative except for pertinent items noted in HPI. Past Medical History Diagnosis Date Essential hypertension Benign prostatic hypertrophy without urinary obstruction Male erectile disorder Hyperlipidemia Obesity Osteoarthritis TIA (transient ischemic attack) Arthritis Retinal vascular occlusion Retinal VAS occlusion ventral ret vein occ Prediabetes Past Surgical History Procedure Laterality Date Complete colonoscopy 09/06/2013 Back surgery 04/08/1990 Carotid artery - subclavian artery bypass graft 04/08/1996 No Known Allergies Prescriptions prior to admission Medication Sig Dispense Refill aspirin EC 325 MG EC tablet Take 325 mg by mouth nightly. Cholecalciferol (VITAMIN D3) 1000 UNITS CAPS Take 1 capsule by mouth nightly. hydrochlorothiazide (HYDRODIURIL) 25 MG tablet Take 25 mg by mouth nightly. lisinopril (ZESTRIL) 20 MG tablet Take 20 mg by mouth nightly. magnesium oxide (MAG-OX) 400 MG tablet Take 400 mg by mouth nightly. simvastatin (ZOCOR) 40 MG tablet Take 40 mg by mouth nightly. Family History Problem Relation Age of Onset Osteoarthritis Mother Heart failure Paternal Grandmother Heart failure Paternal Grandfather History Social History Marital Status: Spouse Name: N/A Number of Children: N/A Years of Education: N/A Occupational History Not on file. Social History Main Topics Smoking status: Never Smoker Smokeless tobacco: Never Used Alcohol Use: 1.8 oz/week 3 Shots of liquor per week Comment: nightly Drug Use: No Sexual Activity: Not on file Other Topics Concern Not on file Social History Narrative PHYSICAL EXAM BP 139/76 | Pulse 69 | Temp(Src) 98.8 F (37.1 C) (Temporal) | Ht 1.778 m (5' 10") | Wt 113.399 kg (250 lb) | BMI 35.87 kg/m2 | SpO2 95% General appearance: alert, appears stated age, cooperative and no distress Head: Normocephalic, without obvious abnormality, atraumatic Eyes: negative findings: lids and lashes normal and conjunctivae and sclerae normal Nose: no discharge, turbinates pink Neck: no JVD, supple, symmetrical, trachea midline, thyroid not enlarged, symmetric, no ten derness/mass/nodules and soft right carotid bruit. Lungs: wheezes bilaterally Heart: regular rate and rhythm, S1, S2 normal, no murmur, click, rub or gallop Abdomen: normal findings: bowel sounds normal, liver span normal to percussion and soft, no n-tender Musculoskeletal: there is no redness, warmth, or swelling of the joints Extremities: extremities normal, atraumatic, no cyanosis or edema and left foot drop Pulses: 2+ and symmetric Skin: Skin color, texture, turgor normal. No rashes or lesions Neurologic: Grossly normal DATA CBC: Lab Results Component Value Date WBC 9.51 08/11/2014 RBC 4.54 08/11/2014 HGB 15.6 08/11/2014 HCT 45.6 08/11/2014 MCV 100.6* 08/11/2014 MCH 34.4* 08/11/2014 MCHC 34.2 08/11/2014 RDW 45.1 08/11/2014 PLT 203 08/11/2014 MPV 8.8 08/11/2014 DIFFTYPE AUTOMATED 08/11/2014 CMP: Lab Results Component Value Date NA 137 08/11/2014 K 4.2 08/11/2014 CL 102 08/11/2014 CO2 29 08/11/2014 ANIONGAP 11 08/11/2014 GLUF 115* 08/11/2014 BUN 18 08/11/2014 CREATININE 0.84 08/11/2014 BCR 21 08/11/2014 CA 9.3 08/11/2014 PROT 7.0 08/05/2014 ALB 4.3 08/05/2014 GLOB 2.7 08/05/2014 BILITOT 0.4 08/05/2014 ALP 42 08/05/2014 AST 20 08/05/2014 ALT 19 08/05/2014 EGFR >60 08/11/2014 PROBLEM LIST Active Problems: * No active hospital problems. * ASSESSMENT & PLAN 1. Angina. 2. Abnormal nuclear stress test. 3. Hypertension. 4. Hyperlipidemia. 5. Obesity. 6. Wheezes. The patient does have risk factors for coronary artery disease including hypertension, hype rlipidemia, obesity, remote history of smoking. Together with anginal symptoms, although cur rently improved, and abnormal stress test, I do agree with Dr. Abdalla's recommendation for c oronary angiogram. I recommended to the patient left heart catheterization and coronary aga ogram, possible angioplasty and stenting. I discussed the procedures, risks, benefits, and a lternatives in detail with the patient. Risks including but not limited to , stroke, in jury to coronary vessels or other vessels, need for emergent heart or vascular surgery, kidn ey failure, radiation injury including radiation skin injury and risk of cancer, bleeding, i nfection, are all discussed. The patient understood and agreed to proceed and signed the con sent form. In the meantime, we will continue the patient's home medications including aspirin, lisinop ril, and simvastatin. The patient will need to be evaluated as an outpatient for wheezing, probably will need a p ulmonary referral. The patient had normal left ventricular ejection fraction in the past. Thank you for allowing us to participate in the care of this patient. Disposition: Code Status: No Order Primary Care Physician: MD Ousmane Rutledge MD 08/11/2014 documented i n this encounter Plan of Treatment Not on filedocumented as of this encounter Procedures + +--------+ + + + | Procedure Name | Priori | Date/Time | Associated Diagnosis | Comments | | | ty | | | | + +--------+ + + + | ECG 12 LEAD | Routin | 08/11/2014 | | Results for this | | | e | 3:42 PM | | procedure are in the | | | | PDT | | results section. | + +--------+ + + + | CV CARDIAC PROCEDURE | Routin | 08/11/2014 | | Results for this | | | e | 1:55 PM | | procedure are in the | | | | PDT | | results section. | + +--------+ + + + | EXTERNAL LAB: CBC | Routin | 08/11/2014 | | Results for this | | | e | 11:15 AM | | procedure are in the | | | | PDT | | results section. | + +--------+ + + + | BASIC METABOLIC | Routin | 08/11/2014 | | Results for this | | PANEL | e | 11:15 AM | | procedure are in the | | | | PDT | | results section. | + +--------+ + + + documented in this encounter Results ECG 12 lead (08/11/2014 3:42 PM PDT) + + + + + + | Component | Value | Ref Range | Performed | Pathologist | | | | | At | Signature | + + + + + + | DIAGNOSIS: | Normal sinus | | EXTERNAL | | | | rhythmNormal ECGNo | | LAB | | | | previous ECGs | | | | | | availableConfirmed by | | | | | | KIMBERLEY KOHLI ([id number]) on | | | | | | 08/11/2014 6:56:06 PM | | | | + + + + + + + + | Specimen | + + | | + + + + + | Narrative | Performed At | + + + | Historically [facility] Epic environment | EXTERNAL LAB | + + + + +---------+ + + | Performing | Address | City/State/Zipcode | Phone Number | | Organization | | | | + +---------+ + + | EXTERNAL LAB | | | | + +---------+ + + CV CARDIAC PROCEDURE (08/11/2014 1:55 PM PDT) + + | Specimen | + + | | + + + + + | Narrative | Performed At | + + + | | | | | | | DATE OF PROCEDURE August 11, 2014 PROCEDURES PERFORMED 1. Conscious | | | sedation. 2. Right radial artery access. 3. Left heart | | | catheterization. 4. Selective left and right coronary artery | | | angiogram. 5. Left ventriculogram. INDICATIONS Chest pain, | | | abnormal stress test. HISTORY OF PRESENT ILLNESS This is a | | | 64-year-old male with history of hypertension, hyperlipidemia, and | | | obesity, who was evaluated as an outpatient with his primary | | | patient access registrar, Dr. Eric Abdalla for exertional neck pain suggestive | | | of angina. The patient had stress test that was abnormal. The patient | | | was referred for cardiac catheterization, coronary angiogram with | | | possible percutaneous intervention. The procedure, risks, benefits, | | | alternatives were discussed with the patient who agreed to proceed. | | | TECHNIQUE The patient was brought to the cardiac catheterization | | | lab in fasting, nonsedated state. After informed consent was | | | obtained, the patient was prepped and draped in the usual sterile | | | fashion. Lidocaine 2% was infiltrated in the skin overlying the right | | | radial artery. The right radial artery was accessed using | | | angiocatheter. A 6-Micronesian sheath was placed in the right radial | | | artery without difficulty. Subsequently, the patient was given a | | | cocktail containing 100 mg of verapamil and 100 mcg nitroglycerin to | | | prevent radial artery spasm. Subsequently the patient was given 5000 | | | units of heparin intravenously. A 5-Micronesian FL-4 and 5-Micronesian FR-4 | | | catheter was used for selective engagement of the left and right | | | coronary system and coronary angiograms were obtained. A 5-Micronesian | | | angled pigtail catheter was used for left ventriculogram which was | | | imaged in the right anterior oblique view. All catheters and | | | guidewires were removed. TR band was applied and the right radial | | | sheath was removed. The patient tolerated the procedure without | | | complications. TOTAL CONTRAST 100 mL of Isovue. ESTIMATED | | | BLOOD LOSS Less than 50 mL RESULTS HEMODYNAMICS 1. Left | | | ventricular systolic pressure 156. 2. Left ventricular end diastolic | | | pressure 21. 3. Pullback aortic pressure 136/78. 4. There appears to | | | be a 20 mmHg gradient across the aortic valve; however, there is | | | partial as there is a whip artifact in the left ventricular tracing. | | | There is hypershoot artifact. I reviewed echocardiogram done on July | | | 2014. There appears to be a report that the patient had aortic | | | valve sclerosis, no significant stenosis. CORONARY ANATOMY 1. | | | Left main coronary artery bifurcates and gives rise to the left | | | anterior descending artery and left circumflex artery. The left main | | | coronary artery is free of disease. 2. Left anterior descending | | | artery is a type 3 vessel, giving rise to the usual diagonals and | | | septal perforators. The left anterior descending artery has a long | | | segment of severe narrowing in the range of 95% after the first | | | diagonal branch. The first diagonal branch itself is a large vessel, | | | has an 80% lesion. 3. Ramus intermedius is a large vessel without | | | significant disease. 4. Left circumflex artery is a nondominant | | | vessel that gives rise to small first marginal branch and medium size | | | secondary marginal branch and then a large third marginal branch. | | | The mid left circumflex artery had elongation extending to the distal | | | left circumflex artery in the range of 90%. 5. Right coronary | | | artery is the dominant vessel giving rise to the posterior descending | | | and posterolateral arteries distally. The proximal right coronary | | | artery has moderate disease in the range of 40%. The distal right | | | coronary artery had 2 tandem lesions in the range of 80%. The second | | | lesion actually involved just before the bifurcation and extends into | | | the right posterior descending artery. The ostium of the right | | | posterior descending artery has 80% lesion. Both the right posterior | | | descending artery and posterolateral arteries are really large | | | vessels. LEFT VENTRICULOGRAM Normal left ventricular ejection | | | fraction with estimated ejection fraction of 65% to 70%. | | | IMPRESSION 1. Severe multivessel coronary artery disease with severe | | | mid left anterior descending artery, large first diagonal, mid left | | | circumflex artery, and distal right coronary artery. 2. Mild | | | gradient across the aortic valve of 20 mmHg. However, likely | | | overestimated with whip artifact in the left ventricular tracing. | | | PLAN 1. The patient will be best served by coronary artery bypass | | | surgery with potential grafts including SULLIVAN to the LAD, vein graft | | | to first diagonal, vein graft to second and third marginals, and vein | | | graft to the right posterior descending artery and right | | | posterolateral artery. 2. Will consult cardiothoracic surgery to | | | reevaluate. Read by OUSMANE YATES MD 08/11/2014 05:54 P | | | | | + + + + + | Procedure Note | + + | Francesco Reyes - 11/26/2018 2:44 PM PDT | | | | DATE OF PROCEDURE | | August 11, 2014 | | | | PROCEDURES PERFORMED | | 1. Conscious sedation. | | 2. Right radial artery access. | | 3. Left heart catheterization. | | 4. Selective left and right coronary artery angiogram. | | 5. Left ventriculogram. | | | | INDICATIONS | | Chest pain, abnormal stress test. | | | | HISTORY OF PRESENT ILLNESS | | This is a 64-year-old male with history of hypertension, hyperlipidemia, | | and obesity, who was evaluated as an outpatient with his primary | | patient access registrar, Dr. Eric Abdalla for exertional neck pain suggestive of | | angina. The patient had stress test that was abnormal. The patient was | | referred for cardiac catheterization, coronary angiogram with possible | | percutaneous intervention. The procedure, risks, benefits, alternatives | | were discussed with the patient who agreed to proceed. | | | | TECHNIQUE | | The patient was brought to the cardiac catheterization lab in fasting, | | nonsedated state. After informed consent was obtained, the patient was | | prepped and draped in the usual sterile fashion. Lidocaine 2% was | | infiltrated in the skin overlying the right radial artery. The right | | radial artery was accessed using angiocatheter. A 6-Micronesian sheath was | | placed in the right radial artery without difficulty. Subsequently, the | | patient was given a cocktail containing 100 mg of verapamil and 100 mcg | | nitroglycerin to prevent radial artery spasm. Subsequently the patient was | | given 5000 units of heparin intravenously. A 5-Micronesian FL-4 and 5-Micronesian | | FR-4 catheter was used for selective engagement of the left and right | | coronary system and coronary angiograms were obtained. A 5-Micronesian angled | | pigtail catheter was used for left ventriculogram which was imaged in the | | right anterior oblique view. All catheters and guidewires were removed. TR | | band was applied and the right radial sheath was removed. The patient | | tolerated the procedure without complications. | | | | TOTAL CONTRAST | | 100 mL of Isovue. | | | | ESTIMATED BLOOD LOSS | | Less than 50 mL | | | | RESULTS | | HEMODYNAMICS | | 1. Left ventricular systolic pressure 156. | | 2. Left ventricular end diastolic pressure 21. | | 3. Pullback aortic pressure 136/78. | | 4. There appears to be a 20 mmHg gradient across the aortic valve; | | however, there is partial as there is a whip artifact in the left | | ventricular tracing. There is hypershoot artifact. I reviewed | | echocardiogram done on August 02, 2014. There appears to be a report | | that the patient had aortic valve sclerosis, no significant stenosis. | | | | CORONARY ANATOMY | | 1. Left main coronary artery bifurcates and gives rise to the left | | anterior descending artery and left circumflex artery. The left main | | coronary artery is free of disease. | | 2. Left anterior descending artery is a type 3 vessel, giving rise to the | | usual diagonals and septal perforators. The left anterior descending | | artery has a long segment of severe narrowing in the range of 95% after | | the first diagonal branch. The first diagonal branch itself is a large | | vessel, has an 80% lesion. | | 3. Ramus intermedius is a large vessel without significant disease. | | 4. Left circumflex artery is a nondominant vessel that gives rise to small | | first marginal branch and medium size secondary marginal branch and | | then a large third marginal branch. The mid left circumflex artery had | | elongation extending to the distal left circumflex artery in the range | | of 90%. | | 5. Right coronary artery is the dominant vessel giving rise to the | | posterior descending and posterolateral arteries distally. The proximal | | right coronary artery has moderate disease in the range of 40%. The | | distal right coronary artery had 2 tandem lesions in the range of 80%. | | The second lesion actually involved just before the bifurcation and | | extends into the right posterior descending artery. The ostium of the | | right posterior descending artery has 80% lesion. Both the right | | posterior descending artery and posterolateral arteries are really | | large vessels. | | | | LEFT VENTRICULOGRAM | | Normal left ventricular ejection fraction with estimated ejection fraction | | of 65% to 70%. | | | | IMPRESSION | | 1. Severe multivessel coronary artery disease with severe mid left | | anterior descending artery, large first diagonal, mid left circumflex | | artery, and distal right coronary artery. | | 2. Mild gradient across the aortic valve of 20 mmHg. However, likely | | overestimated with whip artifact in the left ventricular tracing. | | | | PLAN | | 1. The patient will be best served by coronary artery bypass surgery with | | potential grafts including SULLIVAN to the LAD, vein graft to first | | diagonal, vein graft to second and third marginals, and vein graft to | | the right posterior descending artery and right posterolateral artery. | | 2. Will consult cardiothoracic surgery to reevaluate. | | | | Read by OUSMANE YATES MD 08/11/2014 05:54 P | | | | | + + External Lab: CBC (08/11/2014 11:15 AM PDT) + + + + + + | Component | Value | Ref Range | Performed | Pathologist | | | | | At | Signature | + + + + + + | WBC | 9.51Comment: Testing | 3.80 - 11.00 | EXTERNAL | | | | performed at [facility];[address] | K/uL | LAB | | | | [address];[place] | | | | | | [id number] | | | | + + + + + + | Red Blood | 4.54Comment: Testing | 4.20 - 5.70 | EXTERNAL | | | Cells | performed at [facility];[address] | M/uL | LAB | | | Counted | [address];[place] | | | | | | [address] | | | | + + + + + + | Hemoglobin | 15.6Comment: Testing | 13.2 - 17.0 | EXTERNAL | | | | performed at [facility];[address] | g/dL | LAB | | | | [address];[place] | | | | | | [id number] | | | | + + + + + + | Hematocrit, | 45.6Comment: Testing | 39.0 - 50.0 % | EXTERNAL | | | POC | performed at [facility];[address] | | LAB | | | | [address];[place] | | | | | | [address] | | | | + + + + + + | MCV | 100.6 (H)Comment: | 80.0 - 100.0 fl | EXTERNAL | | | | Testing performed at | | LAB | | | | [facility];[address] | | | | | | [address];[place] [address] | | | | + + + + + + | MCH | 34.4 (H)Comment: Testing | 27.0 - 34.0 pg | EXTERNAL | | | | performed at [facility];[address] | | LAB | | | | [address];[place] | | | | | | [address] | | | | + + + + + + | MCHC | 34.2Comment: Testing | 32.0 - 35.5 | EXTERNAL | | | | performed at [facility];[address] | g/dL | LAB | | | | [address];[place] | | | | | | [address] | | | | + + + + + + | RDW-CV | 45.1Comment: Testing | 37 - 53 fl | EXTERNAL | | | | performed at [facility];[address] | | LAB | | | | [address];[place] | | | | | | [address] | | | | + + + + + + | Platelet | 203Comment: Testing | 150 - 400 K/uL | EXTERNAL | | | Count | performed at [facility];[address] | | LAB | | | Plasma | [address];[place] | | | | | | [address] | | | | + + + + + + | MPV | 8.8Comment: Testing | fl | EXTERNAL | | | | performed at [facility];[address] | | LAB | | | | [address];[place] | | | | | | [address] | | | | + + + + + + | Differentia | AUTOMATEDComment: | | EXTERNAL | | | l Type | Testing performed at | | LAB | | | | [facility];[address];[place] [id number] | | | | + + + + + + | % Segmented | 69.25Comment: Testing | % | EXTERNAL | | | | performed at [facility];[address] | | LAB | | | Neutrophils | [address];[place] | | | | | | [address] | | | | + + + + + + | % | 18.41Comment: Testing | % | EXTERNAL | | | Lymphocytes | performed at [facility];[address] | | LAB | | | | [address];[place] | | | | | | [address] | | | | + + + + + + | % Monocytes | 8.91Comment: Testing | % | EXTERNAL | | | | performed at [facility];[address] | | LAB | | | | [address];[place] | | | | | | [address] | | | | + + + + + + | % | 2.65Comment: Testing | % | EXTERNAL | | | Eosinophils | performed at [facility];[address] | | LAB | | | | [address];[place] | | | | | | [address] | | | | + + + + + + | % Basophils | 0.78Comment: Testing | % | EXTERNAL | | | | performed at [facility];[address] | | LAB | | | | [address];[place] | | | | | | [address] | | | | + + + + + + | Absolute | 6.58Comment: Testing | 1.90 - 7.40 | EXTERNAL | | | Segmented | performed at [facility];[address] | K/uL | LAB | | | Neutrophils | [address];[place] | | | | | | [address] | | | | + + + + + + | Absolute | 1.75Comment: Testing | 1.00 - 3.90 | EXTERNAL | | | Lymphocytes | performed at [facility];888 | K/uL | LAB | | | | [address];[place] | | | | | | [address] | | | | + + + + + + | Absolute | 0.85 (H)Comment: Testing | 0.00 - 0.80 | EXTERNAL | | | Monocytes | performed at [facility];888 | K/uL | LAB | | | | [address];[place] | | | | | | [address] | | | | + + + + + + | Absolute | 0.25Comment: Testing | 0.00 - 0.50 | EXTERNAL | | | Eosinophils | performed at [facility];888 | K/uL | LAB | | | | [address];[place] | | | | | | [address] | | | | + + + + + + | Absolute | 0.07Comment: Testing | 0.00 - 0.10 | EXTERNAL | | | Basophils | performed at [facility];888 | K/uL | LAB | | | | [address];[place] | | | | | | [address] | | | | + + + [...] + +---------+ + + Basic Metabolic Panel (08/11/2014 11:15 AM PDT) + + + + + + | Component | Value | Ref Range | Performed | Pathologist | | | | | At | Signature | + + + + + + | Na | 137Comment: Testing | 135 - 143 | EXTERNAL | | | | performed at [facility];888 | mmol/L | LAB | | | | [address];[place] | | | | | | [address] | | | | + + + + + + | K | 4.2Comment: Testing | 3.5 - 4.9 | EXTERNAL | | | | performed at [facility];888 | mmol/L | LAB | | | | [address];[place] | | | | | | [address] | | | | + + + + + + | Cl | 102Comment: Testing | 99 - 109 mmol/L | EXTERNAL | | | | performed at [facility];[address] | | LAB | | | | [address];[place] | | | | | | [address] | | | | + + + + + + | CO2 | 29Comment: Testing | 23 - 32 mmol/L | EXTERNAL | | | | performed at [facility];[address] | | LAB | | | | [address];[place] | | | | | | [address] | | | | + + + + + + | Anion Gap | 11Comment: Testing | 5 - 20 mmol/L | EXTERNAL | | | | performed at [facility];[address] | | LAB | | | | [address];[place] | | | | | | [address] | | | | + + + + + + | Glucose, | 115 (H)Comment: Testing | 65 - 99 mg/dL | EXTERNAL | | | Fasting | performed at [facility];[address] | | LAB | | | | [address];[place] | | | | | | [address] | | | | + + + + + + | BUN | 18Comment: Testing | 8 - 25 mg/dL | EXTERNAL | | | | performed at [facility];[address] | | LAB | | | | [address];[place] | | | | | | [address] | | | | + + + + + + | Creatinine | 0.84Comment: Testing | 0.70 - 1.30 | EXTERNAL | | | | performed at [facility];888 | mg/dL | LAB | | | | [address];[place] | | | | | | [address] | | | | + + + + + + | BUN/Creatin | 21Comment: Testing | | EXTERNAL | | | ine Ratio | performed at [facility];888 | | LAB | | | | [address];[place] | | | | | | [address] | | | | + + + + + + | Calcium | 9.3Comment: Testing | 8.5 - 10.5 | EXTERNAL | | | | performed at [facility];888 | mg/dL | LAB | | | | [address];[place] | | | | | | [address] | | | | + + + [...] | | | | | | at [facility];[address] | | | [address];[place] [address] | | | | + + + [...] + | Diagnosis | + + | Angina at rest (HCC) Other and unspecified angina pectoris | + + | Positive cardiac stress test Other nonspecific abnormal cardiovascular system | | function study | + + documented in this encounter
--- OUTSIDE RECORDS SUMMARY | ~2019-10-12 | XMS | Encounter Summary ---
Demographics + + + | Address | [address] | | | [place] [address] | + + + | Home Phone | | + + + | Preferred Language | Unknown | + + + | Marital Status | | + + + | Hindu Affiliation | 1013 | + + + | Race | Unknown | + + + | Ethnic Group | Unknown | + + + Author + + + | Author | [facility] | | | and [place] | + + + | Organization | [facility] | | | [...] Team Providers + +------+ + | Care Sales Professional Bilingual Name | Role | Phone | + +------+ + PCP | Unavailable | + +------+ + Encounter Details +--------+ + + + + | Date | Type | Department | Care Team | Description | +--------+ + + + + | 11/30/ | Hospital | [facility] | Conversion | S/P CABG (coronary | | 2014 | Encounter | [facility] XRAY | Transaction, | artery bypass graft) | | | | [address] | Provider Unknown | | | | | [place], [place] | [phone] | | | | | [address] | | | | | | [phone] | | | +--------+ + + + [...] XR CHEST 2 VIEWS | Routin | 11/30/2014 | | Results for this | | | e | 9:29 AM | | procedure are in the | | | | PDT | | results section. | + +--------+ + + + documented in this encounter Results XR Chest 2 Vws (11/30/2014 9:29 AM PDT) + + | Specimen | + + | | + + + + + | Impressions | Performed At | + + + | 1. No acute findings identified. 2. Prior coronary bypass | | | surgery. 3. The lateral view of the sternum is normal. | | | | | + + + + + + | Narrative | Performed At | + + + | [facility] XR CHEST 2 VIEW FRONTAL AND LATERAL 11/30/2014 9:29 | | | AM History: 64 years. Male. Clicking in the anterior chest | | | status post coronary bypass surgery. Technique: PA and lateral | | | views of the chest. Comparison: 08/25/14. Findings: The lateral | | | view demonstrates normal alignment of the sternal ossicles, with | | | sternal wire sutures intact. The previous RIGHT pleural effusion | | | has resolved. The pleural spaces are clear. The lungs are normal. | | | The cardiac volume and contour are normal. The pulmonary | | | vasculature is normal, without dilatation. The thoracic aorta is | | | normal, without dilatation or calcification. The thoracic | | | vertebral bodies are normal in height, without compression fracture or | | | degenerative changes. The overall bone density is normal. No | | | focal osteolytic or osteoblastic defect visualized. | | + + + + + | Procedure Note | + + | Eric, Rad Conversion - 11/21/2018 8:32 AM PDT [facility] CHEST 2 VIEW FRONTAL | | AND LATERAL11/30/2014 9:29 AM History: 64 years. Male. Clicking in the anterior chest | | status post coronary bypass surgery. Technique: PA and lateral views of the | | chest.Comparison: 08/25/14. Findings: The lateral view demonstrates normal alignment of | | the sternal ossicles, with sternal wire sutures intact. The previous RIGHT pleural | | effusion has resolved. The pleural spaces are clear. The lungs are normal. The | | cardiac volume and contour are normal. The pulmonary vasculature is normal, without | | dilatation. The thoracic aorta is normal, without dilatation or calcification. The | | thoracic vertebral bodies are normal in height, without compression fracture or | | degenerative changes. The overall bone density is normal. No focal osteolytic or | | osteoblastic defect visualized. IMPRESSION: 1. No acute findings identified.2. Prior | | coronary bypass surgery.3. The lateral view of the sternum is normal. Electronically | | signed by Magdy Fan MD on 11/30/2014 2:23 PM | | | |IMPRESSION: | |1. No acute findings identified. | |2. Prior coronary bypass surgery. | |3. The lateral view of the sternum is normal. | | | | | + + documented in this encounter Visit Diagnoses + + | Diagnosis | + + | S/P CABG (coronary artery bypass graft) Postsurgical aortocoronary bypass status | + + documented in this encounter"
--- OUTSIDE RECORDS SUMMARY | ~2019-10-12 | XMS | Encounter Summary ---
Demographics + + + | Address | [address] | | | [place] [address] | + + + | Home Phone | | + + + | Preferred Language | Unknown | + + + | Marital Status | | + + + | Mormon Affiliation | 1013 | + + + | Race | Unknown | + + + | Ethnic Group | Unknown | + + + Author + + + | Author | [facility] | | | and [place] | + + + | Organization | [facility] | | [...] Team Providers + +------+ + | Care Interviewing Clerk Name | Role | Phone | + +------+ + PCP | Unavailable | + +------+ + Encounter Details +--------+ + + + + | Date | Type | Department | Care Team | Description | +--------+ + + + + | 11/15/ | Hospital | [facility] | | | | 1991 - | Encounter | MED CTR GENERIC IP | | | | | | CONV DEPT [address] | | | | 11/19/ | | [place], | | | | 1991 | | [place] [address] | | | | | | [phone] | | | +--------+ + + + [...]
--- OUTSIDE RECORDS SUMMARY | ~2019-10-12 | XMS | Encounter Summary ---
Demographics + + + | Address | [address] | | | [place] [address] | + + + | Home Phone | | + + + | Preferred Language | Unknown | + + + | Marital Status | | + + + | Mormon Affiliation | 1013 | + + + | Race | Unknown | + + + | Ethnic Group | Unknown | + + + Author + + + | Author | [facility] | | | and [place] | + + + | Organization | [facility] | | [...] Team Providers + +------+ + | Care Utility Tender Carding Name | Role | Phone | + +------+ + PCP | Unavailable | + +------+ + Encounter Details +--------+ + + + + | Date | Type | Department | Care Team | Description | +--------+ + + + + | 08/17/ | Hospital | [facility] | Conversion | CAD (coronary artery | | 2015 | Encounter | MEDICAL CENTER XRAY | Transaction, | disease) | | | | [address] | Provider Unknown | | | | | [place], [place] | [phone] | | | | | [address] | | | | | | [phone] | Will Small MD | | | | | | [address] | | | | | | [place], [place] | | | | | | [address] | | | | | | | [...] XR CHEST 2 VIEWS | Routin | 08/17/2014 | | Results for this | | | e | 11:45 AM | | procedure are in the | | | | PDT | | results section. | + +--------+ + + + documented in this encounter Results XR Chest 2 Vws (08/17/2014 11:45 AM PDT) + + | Specimen | + + | | + + + + + | Impressions | Performed At | + + + | FINDINGS/ IMPRESSION: Heart size is normal. Lungs are clear. | | | No pleural effusion, no pneumothorax. Mediastinal contours are | | | normal. No acute osseous abnormality. | | + + + + + + | Narrative | Performed At | + + + | [facility] 1950 64 years Male XR CHEST 2 VIEW FRONTAL | | | AND LATERAL 08/17/2014 11:45 AM INDICATION: Preoperative chest | | | radiograph. COMPARISON: None. TECHNIQUE: Two view chest, PA | | | and lateral views | | + + + + + | Procedure Note | + + | Eric, Rad Conversion - 11/21/2018 8:32 AM PDT [facility] | | 1950 | | 64 years Male | | XR CHEST 2 VIEW FRONTAL AND LATERAL | | 08/17/2014 11:45 AM | | | | INDICATION: Preoperative chest radiograph. | | | | COMPARISON: None. | | | | TECHNIQUE: Two view chest, PA and lateral views | | | | IMPRESSION: | | FINDINGS/ IMPRESSION: | | | | Heart size is normal. | | | | Lungs are clear. No pleural effusion, no pneumothorax. | | | | Mediastinal contours are normal. | | | | No acute osseous abnormality. | | | | | | | + + documented in this encounter Visit Diagnoses + + | Diagnosis | + + | CAD (coronary artery disease) Coronary atherosclerosis of unspecified type of vessel, | | [place] or graft | + + documented in this encounter"
--- OUTSIDE RECORDS SUMMARY | ~2019-10-12 | XMS | Encounter Summary ---
Demographics + + + | Address | [address] | | | [place] [address] | + + + | Home Phone | | + + + | Preferred Language | Unknown | + + + | Marital Status | | + + + | Temple Affiliation | 1013 | + + + | Race | Unknown | + + + | Ethnic Group | Unknown | + + + Author + + + | Author | [facility] | | | and [place] | + + + | Organization | [facility] | | | [...] Team Providers + +------+ + | Care Helminthology Teacher Name | Role | Phone | + +------+ + | Demetrius Melgar MD | PCP | | + +------+ + Encounter Details +--------+ + + + + | Date | Type | Department | Care Team | Description | +--------+ + + + + | 07/05/ | Orders Only | [facility] | Elinor Cantu | | | 2017 | | CARDIOLOGY [place] | [address] | | | | | [address] | [address] | | | | | [place], [place] | [place] [address] | | | | | [address] | [phone] | | | | | [phone] | | | +--------+ + + + [...] + | BASIC METABOLIC | Routin | 07/05/2017 | | Results for this | | PANEL | e | 9:30 AM | | procedure are in the | | | | PDT | | results section. | + +--------+ + + + documented in this encounter Results Basic Metabolic Panel (07/05/2017 9:30 AM PDT) + +---------+ + + + | Component | Value | Ref Range | Performed | Pathologist | | | | | At | Signature | + +---------+ + + + | Glucose, | 131 (A) | 70 - 100 mg/dL | EXTERNAL | | | Fasting | | | LAB | | + +---------+ + + + | BUN | 12 | 6 - 23 mg/dL | EXTERNAL | | | | | | LAB | | + +---------+ + + + | Creatinine | 0.92 | 0.70 - 1.25 | EXTERNAL | | | | | mg/dL | LAB | | + +---------+ + + + | BUN/Creatin | 13.0 | 6.0 - 28.6 | EXTERNAL | | | ine Ratio | | | LAB | | + +---------+ + + + | Calcium | 9.8 | 8.4 - 10.2 | EXTERNAL | | | | | mg/dL | LAB | | + +---------+ + + + | Na | 137 | 132 - 143 | EXTERNAL | | | | | mmol/L | LAB | | + +---------+ + + + | K | 4.8 | 3.6 - 5.1 | EXTERNAL | | | | | mmol/L | LAB | | + +---------+ + + + | Cl | 95 | 95 - 112 mmol/L | EXTERNAL | | | | | | LAB | | + +---------+ + + + | CO2 | 30 | 19 - 31 mmol/L | EXTERNAL | | | | | | LAB | | + +---------+ + + + | Anion Gap | 16.8 | 7 - 21 mmol/L | EXTERNAL | | | | | | LAB | | + +---------+ + + + | Estimated | 82 | 60 mg/dL | EXTERNAL | | [...]
--- OUTSIDE RECORDS SUMMARY | ~2019-10-12 | XMS | Encounter Summary ---
Demographics + + + | Address | [address] | | | [place] [address] | + + + | Home Phone | | + + + | Preferred Language | Unknown | + + + | Marital Status | | + + + | Latter-Day Affiliation | 1013 | + + + | Race | Unknown | + + + | Ethnic Group | Unknown | + + + Author + + + | Author | [facility] | | | and [place] | + + + | Organization | [facility] | | | [...] Team Providers + +------+ + | Care Control Systems Drafting Officer Name | Role | Phone | + [...] Provider Unknown | | | | | [place], [place] | [phone] | | | | | [address] | | | | | | [phone] | | | +--------+ + + + [...] | + +--------+ + + + | MRI LUMBAR SPINE WO | Routin | 01/29/2018 | | Results for this | | CONTRAST | e | 3:11 AM | | procedure are in the | | | | PDT | | results section. | + +--------+ + + + documented in this encounter Results MRI Lumbar Spine wo Contrast (01/29/2018 3:11 AM PDT) + + | Specimen | [...]
--- OUTSIDE RECORDS SUMMARY | ~2019-10-12 | XMS | Encounter Summary ---
Demographics + + + | Address | [address] | | | [place] [address] | + + + | Home Phone | | + + + | Preferred Language | Unknown | + + + | Marital Status | | + + + | Adventism Affiliation | 1013 | + + + | Race | Unknown | + + + | Ethnic Group | Unknown | + + + Author + + + | Author | [facility] | | | and [place] | + + + | Organization | [facility] | | | [...] Team Providers + +------+ + | Care Dyer Helper Name | Role | Phone | + +------+ + PCP | Unavailable | + +------+ + Encounter Details +--------+ + + + + | Date | Type | Department | Care Team | Description | +--------+ + + + + | 08/17/ | Hospital | [facility] | Conversion | CAD (coronary artery | | 2014 | Encounter | [facility] | Transaction, | disease) | | | | CLINIC [address] | Provider Unknown | | | | | [address] [place], [place] | [phone] | | | | | [address] | | | | | | [phone] | | | +--------+ + + + [...] | + +--------+ + + + | MRSA NAAT | STAT | 08/17/2014 | | Results for this | | | | 12:46 PM | | procedure are in the | | | | PDT | | results section. | + +--------+ + + + | PTT | Routin | 08/17/2014 | | Results for this | | | e | 12:45 PM | | procedure are in the | | | | PDT | | results section. | + +--------+ + + + | PROTIME INR | Routin | 08/17/2014 | | Results for this | | | e | 12:45 PM | | procedure are in the | | | | PDT | | results section. | + +--------+ + + + documented in this encounter Results MRSA NAAT (08/17/2014 12:46 PM PDT) + + | Specimen | + + | | + + + + + | Narrative | Performed At | + + + | [facility](NOSE) | EXTERNAL LAB | | Testing performed at [address];[place] [address] MRSA PCR | | | NEGATIVE Testing performed at | | | [address];[place] [address] | | + + + + +---------+ + + | Performing | Address | City/State/Zipcode | Phone Number | | Organization | | | | + +---------+ + + | EXTERNAL LAB | | | | + +---------+ + + PTT (08/17/2014 12:45 PM PDT) + + + + + + | Component | Value | Ref Range | Performed | Pathologist | | | | | At | Signature | + + + + + + | aPTT, | 29Comment: Testing | 23 - 32 seconds | EXTERNAL | | | Patient | performed at [facility];[address] | | LAB | | | | [address];[place] | | | | | | [address] | | | | + + + + + + + + | Specimen | + + | Blood specimen | | (specimen) | + + + +---------+ + + | Performing | Address | City/State/Zipcode | Phone Number | | Organization | | | | + +---------+ + + | EXTERNAL LAB | | | | + +---------+ + + Protime INR (08/17/2014 12:45 PM PDT) + + + + + + | Component | Value | Ref Range | Performed | Pathologist | | | | | At | Signature | + + + + + + | INR | 1.1Comment: REFERENCE | | EXTERNAL | | | [...] | | | | | performed at [facility] | | | | | | [facility];[place], [place] | | | | | | [address] | | | | + + + [...] of unspecified type of vessel, | | [place] or graft | + + documented in this encounter"
--- OUTSIDE RECORDS SUMMARY | ~2019-10-12 | XMS | Encounter Summary ---
Demographics + + + | Address | [address] | | | [place] [address] | + + + | Home Phone | | + + + | Preferred Language | Unknown | + + + | Marital Status | | + + + | Oriental Orthodox Affiliation | 1013 | + + + | Race | Unknown | + + + | Ethnic Group | Unknown | + + + Author + + + | Author | [facility] | | | and [place] | + + + | Organization | [facility] | | | [...] Team Providers + +------+ + | Care Home Demonstration Agent Name | Role | Phone | + +------+ + PCP | Unavailable | + +------+ + Encounter Details +--------+ + + + + | Date | Type | Department | Care Team | Description | +--------+ + + + + | 08/17/ | Hospital | [facility] | Conversion | CAD (coronary artery | | 2015 | Encounter | MEDICAL CENTER | Transaction, | disease) | | | | ULTRASOUND [address] | Provider Unknown | | | | | [address] | [phone] | | | | | [place] | | | | | | [address] | | | | | | [phone] | | | +--------+ + + + [...] + +--------+ + + + | VAS LOWER EXTREMITY | Routin | 08/17/2014 | | Results for this | | VEIN MAPPING | e | 11:47 AM | | procedure are in the | | BILATERAL | | PDT | | results section. | + +--------+ + + + documented in this encounter Results VAS Lower Extremity Vein Mapping Bilat (08/17/2014 11:47 AM PDT) + + | Specimen | + + | | + + + + + | Impressions | Performed At | + + + | 1. Both greater saphenous veins are widely patent. 2. The RIGHT | | | greater saphenous vein appears to be somewhat larger than the LEFT. | | | | | + + + + + + | Narrative | Performed At | + + + | [facility] GREATER SAPHENOUS VEIN MAPPING BILATERAL | | | 08/17/2014 11:47 AM History: 64 years Male preoperative | | | evaluation for coronary surgery. Technique: A high-resolution | | | grayscale duplex transducer with color and pulsed Doppler capability | | | was utilized for imaging. RIGHT GREATER SAPHENOUS VEIN | | | (diameter/depth) (measurements in millimeters) SFJ: 4.5 / 22.8 | | | Thigh-High: 3.2 / 17.3 Thigh-Mid: 3.3 / 8.4 Thigh-Low: | | | 2.3 / 11.7 Knee: 2.2 / 6.3 Calf-High: 2.0 / 3.1 | | | Calf-Mid: 1.4 / 1.9 Calf-Low: 1.7 / 2.7 LEFT | | | GREATER SAPHENOUS VEIN (diameter/depth) (measurements in millimeters) | | | SFJ: 4.8 / 22.6 Thigh-High: 2.0 / 9.9 Thigh-Mid: 2.4 | | | / 7.2 Thigh-Low: 2.0 / 5.9 Knee: 1.4 / 5.3 | | | Calf-High: 1.5 / 4.1 Calf-Mid: 1.8 / 3.6 Calf-Low: 2.8 | | | / 4.4 | | + + + + + | Procedure Note | + + | Francesco Reyes - 11/21/2018 8:32 AM [facility] GREATER SAPHENOUS VEIN | | MAPPING BILATERAL08/17/2014 11:47 AM History: 64 years Male preoperative evaluation | | for coronary surgery. Technique: A high-resolution grayscale duplex transducer with | | color and pulsed Doppler capability was utilized for imaging. RIGHT GREATER SAPHENOUS | | VEIN (diameter/depth) (measurements in millimeters)SFJ: 4.5 / 22.8Thigh-High: 3.2 / | | 17.3Thigh-Mid: 3.3 / 8.4Thigh-Low: 2.3 / 11.7Knee: 2.2 / 6.3Calf-High: 2.0 | | / 3.1Calf-Mid: 1.4 / 1.9Calf-Low: 1.7 / 2.7 LEFT GREATER SAPHENOUS VEIN | | (diameter/depth) (measurements in millimeters)SFJ: 4.8 / 22.6Thigh-High: 2.0 / | | 9.9Thigh-Mid: 2.4 / 7.2Thigh-Low: 2.0 / 5.9Knee: 1.4 / 5.3Calf-High: 1.5 / | | 4.1Calf-Mid: 1.8 / 3.6Calf-Low: 2.8 / 4.4 IMPRESSION: 1. Both greater saphenous | | veins are widely patent.2. The RIGHT greater saphenous vein appears to be somewhat | | larger than the LEFT. | | PM | |Knee: 2.2 / 6.3 | |Calf-High: 2.0 / 3.1 | |Calf-Mid: 1.4 / 1.9 | |Calf-Low: 1.7 / 2.7 | | | | | |LEFT GREATER SAPHENOUS VEIN (diameter/depth) (measurements in millimeters) | |SFJ: 4.8 / 22.6 | |Thigh-High: 2.0 / 9.9 | |Thigh-Mid: 2.4 / 7.2 | |Thigh-Low: 2.0 / 5.9 | |Knee: 1.4 / 5.3 | |Calf-High: 1.5 / 4.1 | |Calf-Mid: 1.8 / 3.6 | |Calf-Low: 2.8 / 4.4 | | | | | |IMPRESSION: | |1. Both greater saphenous veins are widely patent. | |2. The RIGHT greater saphenous vein appears to be somewhat larger than the LEFT. | | | | | + + documented in this encounter Visit Diagnoses + + | Diagnosis | + + | CAD (coronary artery disease) Coronary atherosclerosis of unspecified type of vessel, | | [place] or graft | + + documented in this encounter"
[~2019-10-12 15:34] MED LIST changes: +ATORVASTATIN CA40 MG PO; +GABAPENTIN300 MG PO; +MEDROL4 MG PO; +METHYLPREDNISOLO4 M1 PO; +METOPROLOL TART25 MG PO; +MOBIC7.5 MG PO; +NEURONTIN300 MG PO; +NORCO 5-325 TA1 EACH PO; +NORCO 7.5-3251 EACH PO; +ROBAXIN-750750 MG PO; +ZANAFLEX4 MG PO; +ZITHROMAX250 MG PO
[2019-10-12] MEDS ORDERED: LOSARTAN POTASS50 MG PO (16:05)
== END 2019-10-12 19:35 | disposition home or self-care (01) ==
LOC: ED 15:34
DX: T63.011A Toxic effect of rattlesnake venom, accidental (unintentional), initial encounter (principal); S61.230A Puncture wound without foreign body of right index finger without damage to nail, initial encounter; I11.0 Hypertensive heart disease with heart failure; I50.9 Heart failure, unspecified; Z87.891 Personal history of nicotine dependence; Z79.899 Other long term (current) drug therapy; Z79.82 Long term (current) use of aspirin
CPT/HCPCS: 80053; 85025; 85610; 85730; 99284